=== PATIENT | male | born 1955 | race Caucasian/White ===

== ENCOUNTER → 2016-06-06 | Outpatient (CLI) | payer MEDICARE, OTHER ==
--- NOTE | 2016-06-06 10:39 | DI ---
Indication: ITS.REASON: M25.512 PAIN IN LEFT SHOULDER PROCEDURE: SHOULDER LEFT 3 VIEWS: Encounter: Initial Comparison: None Findings: There is no acute fracture, dislocation or malalignment identified. Surgical suture in the left apex. No significant degenerative changes. Impression: No acute osseous abnormality. .
== END ==
LOC: IMA 10:02
PROVIDERS: ATTEND Family Medicine
DX: M25.512 Pain in left shoulder (principal); Z91.81 History of falling

== ENCOUNTER 2017-06-02 10:37 | Inpatient (IN) ==
[2017-06-02] MEDS: LIDOCAINE 1% INJ 10 MG, POTASSIUM CHLORIDE INJ 10 MEQ in NS 100 ML IV SCH ×4 (13:31→19:03)
--- NOTE | 2017-06-02 14:04 | XRay Report ---
Indication: Leukocytosis PROCEDURE: XR chest 1V: Encounter: Initial Comparison: None Findings: Airspace opacity in both lower lobes, greater on the right. No pneumothorax or significant pleural effusion. Heart size and mediastinal contours are within normal limits. Postoperative changes seen in the upper central mediastinum. Contrast material noted in the colon from the patient's recent swallowing study. Surgical clips in the upper quadrant abdomen. Impression: Basilar airspace disease could be due to pneumonia or aspiration. .
[2017-06-02] MEDS ORDERED: SENNOSIDES 8.6 MG TABLET PO PRN (14:25)
[2017-06-02] MEDS ORDERED: ONDANSETRON 4 MG/2 ML INJECTION IVP PRN (14:25)
[2017-06-02] MEDS ORDERED: ALBUTEROL/IPRATROPIUM 2.5mg-0.5mg/3ml NEB AEROSOL PRN ×2 (14:33→18:07)
[2017-06-02] MEDS ORDERED: ALBUTEROL/IPRATROPIUM 2.5mg-0.5mg/3ml NEB AEROSOL SCH (15:00)
--- NOTE | 2017-06-02 16:12 | History & Physical Report ---
History of Present Illness Date: 06/02/17 Chief complaint: altered mental status HPI: Chris Kiran is a 61-year-old patient of Dr. Garland who has a complex medical history including a history of esophageal cancer. He underwent an esophagectomy in [address] Webster in [place]. Since that time, he has been following closely with Dr. Webster, even since his move to [place]. Since his esophagectomy, Chris developed a large hiatal hernia and it was determined that he needed to have repaired as a significant amount of his intestine and stomach had migrated into his thoracic cavity. He underwent the surgery on 04/26/17 in [place]. Prior to his surgery, his reports that he was very active and functionally independents. He remained hospitalized in [place] for a week following his surgery and discharge home to [place] around 05/03. Since that time, his reports that he has progressively become more debilitated with increased confusion, slurred speech, increased disorientation and increased lethargy. She also reports that he has been refusing to eat, stating that nothing tastes right and expresses significant fear about aspirating as he has had frequent bouts with aspiration pneumonia. She also reports that she has been sleeping significantly more over the past few weeks which she attributes to him refusing to wear his CPAP at night because he "can' t breath" with it on. He follows with Dr. Pablo for his COPD and sleep apnea and recently attempted to undergo a sleep study which he could not complete. He has also been following with Dr. Francis, cardiology, and was most recently seen yesterday, 06/01/17 and told his heart was doing great. Recently he was seen by Dr. Mendoza, urology, due to an elevated PSA. Repeat PSA was improved and no prostate biopsy was performed. On 05/29/17, he underwent a modified barium swallow due to inability to eat and significant weight loss since his surgery ( 162lb prior to surgery, 134 lb on admission). The study revealed trace aspiration with thin consistency barium. He was seen by speech therapy as an outpatient on 05/31/17 and found to be significantly malnourished and dehydrated with significant oropharyngeal dysphagia and at increased risk for aspiration given his lethargy on the exam. Speech recommended that he remain NPO due to his decreased level of consciousness with hopeful advancement to pureed consistency with nectar thickened liquids as a goal in the future. He was encouraged to follow up with his PCP, Dr. Steel, whom he saw this morning, . Due to his decreased level of consciousness and dehydration, Dr. Juárez was consulted and he was initially admitted into observation status. Upon arrival, labs were obtained and revealed leukocytosis (WBC 13.7), anemia (12.1) , hypokalemia (K 2.7), elevated alkaline phosphatase (384), severe protein calorie malnutrition (prealbumin 5.3) and lithium toxicity (lithium 3.1). Chest x-ray revealed basilar airspace disease. Given his pneumonia with leukocytosis and high risk due to his severe protein calorie malnutrition as well as his lithium toxicity, altered mental status and severe hypokalemia, he was changed to inpatient status for close respiratory, cardiovascular and neurologic monitoring, IV hydration, IV potassium supplementation and further evaluation and treatment. His length of stay is expected to be greater than 2 days. Due to his somnolence on exam, the majority of his history was obtained from his , nursing and prior medical records. Review of Systems ROS unobtainable: due to mental status - Constitutional Constitutional: Present: anorexia, daytime sleepiness, fatigue, lethargy, weakness. Absent: chills, fever(s) - EENMT Eyes: Absent: photophobia Nose: Absent: nosebleeds Mouth/Throat: Present: changes in swallowing, dry mouth - Cardiovascular Cardiovascular: Absent: chest pain, syncope Vascular: Absent: pallor of an extermity, pedal edema - Respiratory Respiratory: Absent: cough, dyspnea, wheezing - Gastrointestinal Gastrointestinal: Present: dysphagia. Absent: diarrhea, vomiting - Genitourinary Genitourinary: Absent: hematuria - Musculoskeletal Musculoskeletal: Present: abnormal gait (instability), muscle weakness. Absent : deformity - Integumentary/Breasts Integumentary: Absent: rash - Neurological Neurological: Present: abnormal gait, confusion, restless legs, weakness. Absent: convulsions, dizziness - Psychiatric Psychiatric: Present: abnormal sleep pattern, behavioral changes, depression Psychiatric Comments: increased behaviors per family. - Endocrine Endocrine: Absent: palpitations - Hematologic/Lymphatic Hematologic/Lymphatic: Absent: easy bruising - Allergic/Immunologic Allergic/Immunologic: Absent: seasonal rhinorrhea Past Medical History Medical History Updates: CAD. Hypertension. Hyperlipidemia. Dibetes mellitus , type II. Diabetic neuropathy. COPD. Sleep apnea with home CPAP. Vascular dementia. GERD. Dysphagia. Chronic pain. Chronic anemia. Severe depression with prior ECT treatments - 2002. History of alcohol abuse. History of esophageal cancer and Philippe's esophagus. Questionable history of CVA - 2003. Prior suicidial attempt - 2002. Surgical History: Major hiatal hernia repair - removing abdomonal structures from thoracic cavity - 04/26/2017 (Dr. Webster - [place]). Esophagectomy - 1991 (Dr. Webster - [place]). Appendectomy. Family History: Unable to Obtain - Social History Smoking status: Former smoker (quit 1991) Substance use type: former substance user (marijuana and cociane) Alcohol intake frequency: former alcohol drinker (quit 2002) Housing: house Household members: spouse Current occupational status: retired Current residence: Apartment/Private Home Social history: PCP - Dr. Steel. Surg - Dr. Webster ([place]). Uro - Dr. Dalal. Cardio - Dr. Francis. Pulm - Dr. Pablo. Medications Home Medications Medication Instructions Recorded Confirmed Type Albuterol Sulfate [Proair Hfa] 2 puff INH Q4H PRN 06/02/17 06/02/17 History Aspirin [Adult Aspirin Regimen] 81 mg PO DAILY 06/02/17 06/02/17 History Fluticasone/Salmeterol 250/50 1 puff INH BID 06/02/17 06/02/17 History [Advair 250-50 Diskus] Gabapentin [Neurontin] 1,200 mg PO HS 06/02/17 06/02/17 History Gabapentin [Neurontin] 200 mg PO BID 06/02/17 06/02/17 History Isosorbide Mononitrate ER [Imdur] 30 mg PO DAILY 06/02/17 06/02/17 History Lactobacillus [Culturelle] 1 cap PO DAILY 06/02/17 06/02/17 History Latanoprost [Latanoprost] 1 drop EACH EYE HS 06/02/17 06/02/17 History [place] Carbonate [[place] 900 mg PO HS 06/02/17 06/02/17 History Carbonate] Modafinil [Provigil] 200 mg PO DAILY 06/02/17 06/02/17 History Multivitamin [One Daily] 1 each PO DAILY 06/02/17 06/02/17 History Nitroglycerin 0.4 mg SL Q5M PRN 06/02/17 06/02/17 History Pantoprazole Tab [Protonix Tab] 1 tab PO ACB 06/02/17 06/02/17 History Pramipexole Di-HCl [Mirapex] 0.5 mg PO HS 06/02/17 06/02/17 History Ranitidine [Zantac] 150 mg PO DAILY 06/02/17 06/02/17 History Rosuvastatin Calcium [Crestor] 40 mg PO HS 06/02/17 06/02/17 History Tamsulosin [Flomax] 0.4 mg PO DAILY 06/02/17 06/02/17 History Tramadol/APAP 37.5/325 [Ultracet] 1 tab PO Q8H PRN 06/02/17 06/02/17 History Venlafaxine XR [Effexor Xr] 450 mg PO DAILY 06/02/17 06/02/17 History Allergies Allergy/AdvReac Type Severity Reaction Status Date / Time No Known Allergies Allergy Verified 06/02/17 12:13 Exam Vital Signs: Temperature 95.5 F L 06/02/17 11:05 Pulse Rate 66 06/02/17 14:50 Respiratory Rate 16 06/02/17 14:50 Blood Pressure 107/64 06/02/17 14:50 Pulse Oximetry 96 06/02/17 14:50 Telemetry Rhythm: Sinus Rhythm Height/Weight/BMI: Height 5 ft 4 in Weight 134 lb 0.657 oz Body Mass Index 23.0 Comments: Patient is sleeping and awakens briefly with loud voice and stimuli but quickly falls back to sleep. Limited exam due to patient's somnolence and altered mental status in addition to known dementia. - Constitutional Present: no acute distress, thin, somnolent. Absent: well nourished - Routine HEENT Exam Head: Present: normocephalic, atraumatic Eye: Present: PERRL. Absent: conjunctival icterus ENT: Present: mucous membranes dry - Routine Neck Exam Present: supple, trachea midline - Routine Chest/Breast/Axilla Exam Chest wall: Absent: tenderness, pacemaker - Routine Respiratory Exam Absent: accessory muscle use, dyspnea Comments: diminished breath sounds bilaterally. - Routine Cardiovascular Exam Present: RRR - Routine Abdominal Exam Present: soft, normoactive bowel sounds, non distended, non tender - Routine Extremities Exam Present: no edema, pulses intact - Routine Back/Spine/Pelvis Exam Comments: limited exam due to patient's somnolence. - Routine Skin Exam Present: dry, warm. Absent: jaundice Comments: afebrile. - Routine Neurological Exam Present: altered mental status, hearing grossly intact - Routine Psychiatric Exam Present: cooperative Results - Labs CBC & Chem 7: 06/02/17 11:40 06/02/17 11:40 - Imaging and Cardiology Chest x-ray Status: image reviewed by me Additional comments: Date of Exam: 06/02/17 Type of Exam(s): XR chest 1V Reason for Exam(s): Leukocytosis Findings: Airspace opacity in both lower lobes, greater on the right. No pneumothorax or significant pleural effusion. Heart size and mediastinal contours are within normal limits. Postoperative changes seen in the upper central mediastinum. Contrast material noted in the colon from the patient's recent swallowing study. Surgical clips in the upper quadrant abdomen. Impression: Basilar airspace disease could be due to pneumonia or aspiration. Assessment and Plan (1) Pneumonia Current visit: Yes Status: Acute (2) Hypokalemia Current visit: Yes Status: Acute (3) Leukocytosis Current visit: Yes Status: Acute (4) Severe protein-calorie malnutrition Current visit: Yes Status: Acute (5) [place] toxicity Current visit: Yes Status: Acute Assessment and Plan: Acute Medical Conditions Altered mental status, acute. Pneumonia, present on admission. Severe hypokalemia, present on admission. Leukocytosis, present on admission. Rapid weight loss with anorexia. Severe protein calorie malnutrition. [place] toxicity, present on admission. Dementia (vascular) with behavioral disturbance and increased agitation/ restlessness. Major depressive disorder. Dysphagia with declining oral intake ability. Chronic Medical Conditions CAD. Hypertension. Hyperlipidemia. Diabetes mellitus, type II. Diabetic neuropathy. COPD. Sleep apnea with home CPAP. GERD. Dysphagia. Chronic pain. Chronic anemia. Severe depression with prior ECT treatments - 2002. History of alcohol abuse. History of esophageal cancer and Philippe's esophagus. Questionable history of CVA - 2003. Prior suicidal attempt - 2002. Plan Admit to inpatient status under the care of Dr. Juárez. Labs obtained on admission - WBC 13.7, Hgb 12.1, K 2.7. CXR revealed pneumonia - blood cultures obtained and pending; lactate 1.3. Monitor closely for signs of sepsis. Rocephin 1g IV daily and Azithromycin 500mg IV daily initiated 06/02/17 for treatment of pneumonia. Potassium boluses x 4 given - monitor electrolytes closely. Monitor cardiac function closely on telemetry. Oxygen as needed to maintain SAO2 >90%. Currently on room air. Does not use oxygen at home. DuoNeb treatments and acapella. Will obtain ABG now given increased lethargy. believes behaviors are secondary to not using his CPAP at night. Speech recommending NPO status given decreased level of consciousness and risk for aspiration. Will hold oral home medications at this time. Significant history of depression. Consider psychiatric consult once mental status improved. Ativan as needed for increased behaviors and air hunger. If mental status does not improve, consider obtaining CT head and/or MRI brain for further evaluation. Will hold lithium given toxicity. Monitor levels. Given anemia and behavior changes, will check B12 level. Will try and obtain UA sample for evaluation. Upon discharge, patient's care will be returned to his PCP, Dr. Steel. DVT Prophylaxis: SCD's GI Prophylaxis: Protonix Resuscitation Status: Full Code - Time spent with patient Time with patient PN: 70 minutes - Physician Narrative Physician: Madan Juárez MD Narrative: Date: 06/02/17 Time: 1744 Have independently interviewed and examined pt. Chart reviewed. Case discussed with Dr Steel, Dr Dior, pt's , and my PA. Care plan developed with my supervision; agree with above. Patient admitted for evaluation of impaired swallow ability. Has had esophageal CA with esophagectomy. Recent underwent surgery in [place] for correction. Did well during hospitalization, but since home has been having progressive difficulty swallowing. In the past 3 weeks he has progressively become weak. Significant weight loss in last month. Now to the point he is unable to move around well at home. Lungs: decreased CV: regular AB: soft flat BS decreased MSE: very somnolent Plan: Initially placed in OBS, but with findings of significant Mental status decline and pneumonia with leukocytosis, will change to inpatient admission. Discussed case with Dr Dior-esophagram and EGD may shed some light on why he cannot eat (?stricture), but patient to acutely ill to attempt these procedure. Speech recommends NPO due to his decreased LOC. Will initiate antimicrobial coverage for pneumonia and hydrate pt-hope to see cognitive gains with these modalities. Likely need TPN/PPN if not seeing increased oral drive in near future. Monitor lab. Full code per his prior request. Hospital Course Summary Disclaimer: The visit summary below is not to be considered part of the above Progress Note. Hospital Course: Plan - 06/02/17: Admit to inpatient status under the care of Dr. Juárez. Labs obtained on admission - WBC 13.7, Hgb 12.1, K 2.7. CXR revealed pneumonia - blood cultures obtained and pending; lactate 1.3. Monitor closely for signs of sepsis. Rocephin 1g IV daily and Azithromycin 500mg IV daily initiated 06/02/17 for treatment of pneumonia. Potassium boluses x 4 given - monitor electrolytes closely. Monitor cardiac function closely on telemetry. Oxygen as needed to maintain SAO2 >90%. Currently on room air. Does not use oxygen at home. DuoNeb treatments and acapella. Will obtain ABG now given increased lethargy. believes behaviors are secondary to not using his CPAP at night. Speech recommending NPO status given decreased level of consciousness and risk for aspiration. Will hold oral home medications at this time. Significant history of depression. Consider psychiatric consult once mental status improved. Ativan as needed for increased behaviors and air hunger. If mental status does not improve, consider obtaining CT head and/or MRI brain for further evaluation. Will hold lithium given toxicity. Monitor levels. Given anemia and behavior changes, will check B12 level. Will try and obtain UA sample for evaluation. Upon discharge, patient's care will be returned to his PCP, Dr. Steel.
[2017-06-02] MEDS: CEFTRIAXONE 1 G in NS 100 ML IV SCH (16:17)
[2017-06-02] MEDS ORDERED: ACETAMINOPHEN 650 MG SUPPOSITORY PR PRN (17:29)
[2017-06-02] MEDS: PANTOPRAZOLE 40 MG INJECTION IVP SCH (17:46)
[2017-06-02] MEDS: NS 1,000 ML IV SCH (18:32)
[2017-06-02] MEDS ORDERED: BUDESONIDE INH.SOLN 0.5mg/2ml NEB IPPB SCH (19:00)
[2017-06-02] MEDS: ALBUTEROL/IPRATROPIUM 2.5mg-0.5mg/3ml NEB AEROSOL SCH (19:40)
[2017-06-02] MEDS: BUDESONIDE INH.SOLN 0.5mg/2ml NEB AEROSOL SCH (19:40)
[2017-06-02] MEDS: SALINE FLUSH 10ml SYRINGE IV PRN (20:25)
[2017-06-02] MEDS: AZITHROMYCIN IV 500 MG in NS 250ml 250 ML IV SCH (20:25)
--- NOTE | 2017-06-02 20:31 | Consultation ---
DATE OF CONSULTATION 06/02/2017 HISTORY OF PRESENT ILLNESS This patient is 61 years old. This patient underwent an esophagogastrectomy operation in [address] Webster in [place] for treatment of esophageal carcinoma. The patient has continued to followup with Dr. Webster since that time even after Dr. Webster transferred his practice from [place], [place] to [place], [place]. The patient moved from [place] to [place], [place] about four years ago. The patient did have a large amount of his abdominal viscera migrate from the abdominal cavity up into the chest cavity through a large hiatal hernia. The patient did undergo an operation on [address] Webster at [place], [place]. The patient underwent laparotomy with reduction of abdominal viscera out of the thorax back into the abdominal cavity with repair of a large hiatal hernia with mesh on 04/26/[address] Webster at [facility] at [place], [place]. The patient was active and functionally independent before this operation. The patient did remain hospitalized at [place], [place] for about a week after the operation. The patient was eating and keeping food down during the first week after the operation. The patient then came back to the [place], [place] area. The condition of the patient has progressively deteriorated since he came back to [place], [place] from [place], [place]. The patient has become more and more debilitated. The patient has been slowly losing weight since then. The patient did weigh 162 pounds before his operation on 04/26/2017. Weight is now down to 134 pounds. The patient refuses to eat any more after taking one or two bites of food. He has a poor appetite. He does not eat much. He will not use his dentures. The patient has some vomiting. The reports that the patient has been losing weight. He has slurred speech. He is disoriented. He is confused. He is so weak at this point that he cannot stand up. He has refused to take a bath. The patient has had increased confusion, slurred speech , increased disorientation and increased lethargy. The patient has also been somnolent during the daytime. The wonders if this is because the patient refuses to wear his CPAP at night. He does have sleep apnea and does have CPAP prescribed for treatment of sleep apnea but does not use this. The patient did attempt to undergo another sleep study recently under the direction of Dr. Pablo but the patient was not able to complete the sleep study. The patient did undergo a modified barium swallow study at [facility] due to inability to eat and significant weight loss. This modified barium swallow study showed trace aspiration with thin consistency barium. He was seen by Speech Therapy as an outpatient on 05/31/2017. The patient was found to be significantly malnourished and dehydrated with severe oropharyngeal dysphagia. The patient was thought to be at increased risk of aspiration because of his lethargy. Speech Therapy recommended that the patient remain n.p.o. due to his decreased level of consciousness. It was hoped that the patient could be advanced to a diet with pureed consistency with nectar thickened liquids as a goal for the future. The patient was encouraged to followup with his primary care physician. The patient did see his primary care physician on the morning of 06/02/2017. Due to the decreased level of consciousness of the patient and his dehydration, the primary care physician recommended the patient be admitted to [facility] on 06/02/2017. This history is obtained from the of the patient and also from review of [facility] records. The patient could not be aroused enough from his somnolence at this time to provide any type of history at all at the present time. PHYSICAL EXAMINATION VITAL SIGNS: Temperature is 95.5 degrees Fahrenheit oral. Pulse is 66. Respiratory rate is 16. Blood pressure is 107/64. Oxygen saturation is 96% on room air. Height is 1.63 meters. Weight is 60.8 kg. BMI is 23 kg/m2. ABDOMEN: The patient does have a recent midline vertically oriented upper abdominal incision scar. The abdomen is soft and nontender and nondistended at this time. NEUROLOGIC: The patient is unresponsive to verbal stimuli at this time. He is quite somnolent and unable to answer any questions. LABORATORY DATA White blood cell count is 13,700 with no bands. The patient does have 84.2% neutrophils. Hemoglobin is 12.1. Hematocrit is 36.8. Serum sodium is 137. Serum potassium is 2.7. Serum chloride is 95. Carbon dioxide is 31. Serum creatinine is 1.1. Alkaline phosphatase is 384. Prealbumin is 5.3. [place] level is 3.1. IMAGING DATA Chest x-ray performed on 06/03/2015 at [facility] shows bibasilar airspace disease which could represent pneumonia or aspiration. The patient has air space opacity in both lower lobes, greater on the right. IMPRESSION 1. Status post esophagogastrectomy in 1991 for treatment of esophageal carcinoma. 2. Status post laparotomy with reduction of abdominal viscera out of thorax and repair of large hiatal hernia with mesh on 04/26/2017. 3. Oropharyngeal dysphagia. 4. Severe protein calorie malnutrition. 5. Weight loss. 6. Anorexia. 7. Weakness. 8. Altered mental status. 9. [place] toxicity. 10. Severe hypokalemia. 11. Pneumonia. 12. Leukocytosis due to pneumonia. 13. Anemia. 14. Sleep apnea. 15. Chronic obstructive pulmonary disease. 16. Coronary artery disease. 17. Hypertension. 18. Hyperlipidemia. 19. Type 2 diabetes mellitus. 20. Gastroesophageal reflux disease. 21. Major depressive disorder. RECOMMENDATIONS 1. I agree with Rocephin and azithromycin for treatment of pneumonia. 2. IV hydration of patient. 3. Correct hypokalemia. 4. Hold lithium. 5. TPN for nutritional support. 6. CT head scan or MRI of the brain if the mental status does not improve. 7. Esophagram and upper GI x-ray series if mental status improves enough for the patient to cooperate with these imaging studies. 8. Sequential compression devices for deep venous thrombosis prophylaxis. 9. Intravenous Protonix for GI prophylaxis. MTDD
[2017-06-03] MEDS: ALBUTEROL/IPRATROPIUM 2.5mg-0.5mg/3ml NEB AEROSOL SCH ×4 (07:22→19:34)
[2017-06-03] MEDS: BUDESONIDE INH.SOLN 0.5mg/2ml NEB AEROSOL SCH ×2 (07:23→19:34)
[2017-06-03] MEDS: NS 1,000 ML IV SCH (07:47)
[2017-06-03] MEDS: PANTOPRAZOLE 40 MG INJECTION IVP SCH (08:19)
[2017-06-03] MEDS: POLYETHYL GLYCOL 3350 17gm PACKET PO SCH (08:19)
[2017-06-03] MEDS: CEFTRIAXONE 1 G in NS 100 ML IV SCH (14:02)
--- NOTE | 2017-06-03 14:42 | Progress Note ---
- Date 06/03/17 Subjective: Resting comfortably. Speech difficult to understand at times. Struggles to answer questions. present a little later. Patient up to chair c/o pins and needles in his legs. NG d/w them for nutrition and to give meds. Patient agrees to this. Objective Vital signs: Temperature 97.6 F 06/03/17 11:46 Pulse Rate 78 06/03/17 11:46 Respiratory Rate 18 06/03/17 11:46 Blood Pressure 150/67 H 06/03/17 11:46 Pulse Oximetry 95 06/03/17 11:46 Height/Weight/BMI: Height 5 ft 4 in Weight 61.2 kg Body Mass Index 23.0 - Constitutional Present: no acute distress, mild distress - Routine HEENT Exam Head: Present: normocephalic Eye: Present: EOMI, PERRL - Routine Respiratory Exam Present: CTA bilaterally - Routine Cardiovascular Exam Present: RRR, S1, S2 - Routine Abdominal Exam Present: soft, normoactive bowel sounds, non distended, non tender - Routine Extremities Exam Present: no edema - Routine Neurological Exam Present: alert Results - Labs CBC & Chem 7: 06/03/17 04:55 06/03/17 04:55 Microbiology Results: Microbiology 06/02/17 18:23 Urine, Voided (Cc/notcc) Urine Culture - Preliminary Early growth 06/02/17 15:38 Peripheral/Iv Start Blood Culture - Preliminary Culture Initiated - Results Pending 06/02/17 15:34 Peripheral/Iv Start Blood Culture - Preliminary Culture Initiated - Results Pending - ABG Interpretation ABG results: 06/02/17 17:07 ABG pH 7.432 ABG pCO2 44 ABG pO2 58.2 L ABG HCO3 29.3 H ABG Total CO2 30.7 H ABG O2 Saturation 90.4 L ABG Base Excess 4.4 H Assessment and Plan (1) Pneumonia Current visit: Yes Status: Acute (2) Hypokalemia Current visit: Yes Status: Acute (3) Leukocytosis Current visit: Yes Status: Acute (4) Severe protein-calorie malnutrition Current visit: Yes Status: Acute (5) [place] toxicity Current visit: Yes Status: Acute Assessment and Plan: Acute Medical Conditions Altered mental status, acute. Pneumonia, present on admission. Severe hypokalemia, present on admission. Leukocytosis, present on admission. Rapid weight loss with anorexia. Severe protein calorie malnutrition. [place] toxicity, present on admission. Dementia (vascular) with behavioral disturbance and increased agitation/ restlessness. Major depressive disorder. Dysphagia with declining oral intake ability. UTI Chronic Medical Conditions CAD. Hypertension. Hyperlipidemia. Diabetes mellitus, type II. Diabetic neuropathy. COPD. Sleep apnea with home CPAP. GERD. Dysphagia. Chronic pain. Chronic anemia. Severe depression with prior ECT treatments - 2002. History of alcohol abuse. History of esophageal cancer and Philippe's esophagus. Questionable history of CVA - 2003. Prior suicidal attempt - 2002. Plan Continue Rocephin 1g IV daily and Azithromycin 500mg IV daily for treatment of pneumonia. Repeat potassium boluses x 4. Monitor cardiac function closely on telemetry. Oxygen as needed to maintain SAO2 >90%. Currently on room air. Does not use oxygen at home. DuoNeb treatments and acapella. Use CPAP. Speech continues to recommend NPO status. NGT to be placed. Start tube feedings. Consult support manager. Accuchecks q6. Significant history of depression. Consider psychiatric consult once mental status improved. Ativan as needed for increased behaviors and air hunger. Will hold lithium given toxicity. Monitor levels and continue IVF. Given anemia and behavior changes, will check B12 level. Antibiotics expected to cover UTI. - Physician Narrative Narrative: Date: 06/03/17 Time: 1436 Hospital Course Summary Disclaimer: The visit summary below is not to be considered part of the above Progress Note. Hospital Course: Plan - 06/02/17: Admit to inpatient status under the care of Dr. Juárez. Labs obtained on admission - WBC 13.7, Hgb 12.1, K 2.7. CXR revealed pneumonia - blood cultures obtained and pending; lactate 1.3. Monitor closely for signs of sepsis. Rocephin 1g IV daily and Azithromycin 500mg IV daily initiated 06/02/17 for treatment of pneumonia. Potassium boluses x 4 given - monitor electrolytes closely. Monitor cardiac function closely on telemetry. Oxygen as needed to maintain SAO2 >90%. Currently on room air. Does not use oxygen at home. DuoNeb treatments and acapella. Will obtain ABG now given increased lethargy. believes behaviors are secondary to not using his CPAP at night. Speech recommending NPO status given decreased level of consciousness and risk for aspiration. Will hold oral home medications at this time. Significant history of depression. Consider psychiatric consult once mental status improved. Ativan as needed for increased behaviors and air hunger. If mental status does not improve, consider obtaining CT head and/or MRI brain for further evaluation. Will hold lithium given toxicity. Monitor levels. Given anemia and behavior changes, will check B12 level. Will try and obtain UA sample for evaluation. Upon discharge, patient's care will be returned to his PCP, Dr. Steel. 06/03 Continue Rocephin 1g IV daily and Azithromycin 500mg IV daily for treatment of pneumonia. Repeat potassium boluses x 4. Monitor cardiac function closely on telemetry. Oxygen as needed to maintain SAO2 >90%. Currently on room air. Does not use oxygen at home. DuoNeb treatments and acapella. Use CPAP. Speech continues to recommend NPO status. NGT to be placed. Start tube feedings. Consult support manager. Accuchecks q6. Significant history of depression. Consider psychiatric consult once mental status improved. Ativan as needed for increased behaviors and air hunger. Will hold lithium given toxicity. Monitor levels and continue IVF. Given anemia and behavior changes, will check B12 level. Antibiotics expected to cover UTI.
[2017-06-03] MEDS ORDERED: TRAMADOL/APAP 37.5 MG/325 MG TABLET PO PRN (14:54)
[2017-06-03] MEDS ORDERED: NITROGLYCERIN 0.4 MG SUBLINGUAL TABLET SL PRN (14:54)
[2017-06-03] MEDS: AZITHROMYCIN IV 500 MG in NS 250ml 250 ML IV SCH (15:49)
[2017-06-03] MEDS: GABAPENTIN 100 MG CAPSULE PO SCH (17:07)
[2017-06-03] MEDS: TAMSULOSIN 0.4 MG CAPSULE PO SCH (17:08)
[2017-06-03] MEDS: ASPIRIN *EC* 81 MG TABLET PO SCH (17:10)
[2017-06-03] MEDS: MODAFINIL 100 MG TABLET PO SCH (17:10)
[2017-06-03] MEDS: ISOSORBIDE MONONITRATE ER 30 MG TABLET PO SCH (17:13)
[2017-06-03] MEDS: ENOXAPARIN 40 MG/0.4 ML INJECTION SQ SCH (17:13)
[2017-06-03] MEDS: NS IV SCH ×4 (17:25→23:10)
[2017-06-03] MEDS: POTASSIUM CHLORIDE IV SCH ×4 (17:25→23:10)
[2017-06-03] MEDS: LIDOCAINE IV SCH ×4 (17:25→23:10)
[2017-06-03] MEDS: TRAMADOL/APAP 37.5 MG/325 MG TABLET NG PRN (20:15)
[2017-06-03] MEDS ORDERED: ROSUVASTATIN 20 MG TABLET PO SCH (21:00)
[2017-06-03] MEDS ORDERED: GABAPENTIN 600 MG TABLET PO SCH (21:00)
[2017-06-03] MEDS ORDERED: PRAMIPEXOLE 0.5 MG TABLET PO SCH (21:00)
[2017-06-03] MEDS: GABAPENTIN 600 MG TABLET NG SCH (22:43)
[2017-06-03] MEDS: ROSUVASTATIN 20 MG TABLET NG SCH (22:44)
[2017-06-03] MEDS: PRAMIPEXOLE 0.5 MG TABLET NG SCH (22:45)
[2017-06-04] MEDS: NS 1,000 ML IV SCH ×3 (01:22→11:44)
[2017-06-04] MEDS: ISOSORBIDE DINITRATE 10 MG TABLET PO SCH (06:27)
[2017-06-04] MEDS: ALBUTEROL/IPRATROPIUM 2.5mg-0.5mg/3ml NEB AEROSOL SCH ×4 (07:07→20:41)
[2017-06-04] MEDS: BUDESONIDE INH.SOLN 0.5mg/2ml NEB AEROSOL SCH ×2 (07:07→20:41)
[2017-06-04] MEDS: GABAPENTIN 100 MG CAPSULE PO SCH ×2 (08:59→17:07)
[2017-06-04] MEDS: ASPIRIN *EC* 81 MG TABLET PO SCH (08:59)
[2017-06-04] MEDS: ENOXAPARIN 40 MG/0.4 ML INJECTION SQ SCH (08:59)
[2017-06-04] MEDS: PANTOPRAZOLE 40 MG INJECTION IVP SCH (09:00)
[2017-06-04] MEDS: MODAFINIL 100 MG TABLET PO SCH (09:00)
[2017-06-04] MEDS: POLYETHYL GLYCOL 3350 17gm PACKET PO SCH (09:01)
[2017-06-04] MEDS: TAMSULOSIN 0.4 MG CAPSULE PO SCH (09:01)
--- NOTE | 2017-06-04 09:27 | XRay Report ---
Indication: NG tube placement PROCEDURE: XR chest 1V: Encounter: Initial Comparison: June 02, 2017 Findings: Nasogastric tube in place with the tip projecting over the distal pyloric region or possibly first portion of the duodenum. Contrast material again seen in the colon. Nonobstructive nonspecific bowel gas pattern. Hazy opacities in both lung bases could represent scarring, atelectasis or infiltrate. No pneumothorax or definite effusion. Heart size and mediastinal contours are within normal limits. Impression: Findings as above. There is a preliminary report by virtual radi[facility]. .
[2017-06-04] MEDS ORDERED: FALL RISK - PHARMACY CONSULT MC ONE (11:05)
--- NOTE | 2017-06-04 11:39 | Progress Note ---
- Date 06/04/17 Subjective: Patient having NGT replaced because unable to pass water through it. Patient says neuropathy improved after getting gabapentin. Patient struggles to answer questions. Objective Vital signs: Temperature 97.8 F 06/04/17 08:00 Pulse Rate 78 06/04/17 08:00 Respiratory Rate 18 06/04/17 10:46 Blood Pressure 107/64 06/04/17 08:00 Pulse Oximetry 95 06/04/17 10:46 Height/Weight/BMI: Height 5 ft 4 in Weight 62.8 kg Body Mass Index 23.0 - Constitutional Present: moderate distress Comments: while NGT being placed - Routine HEENT Exam Head: Present: normocephalic, atraumatic Eye: Present: EOMI, PERRL - Routine Respiratory Exam Present: CTA bilaterally - Routine Cardiovascular Exam Present: RRR, S1, S2 - Routine Abdominal Exam Present: soft, non distended, non tender - Routine Extremities Exam Present: no edema - Routine Neurological Exam Present: alert, moving all extremities Results - Labs CBC & Chem 7: 06/04/17 04:33 06/04/17 04:33 Microbiology Results: Microbiology 06/02/17 18:23 Urine, Voided (Cc/notcc) Urine Culture - Preliminary Enterococcus species 06/02/17 15:38 Peripheral/Iv Start Blood Culture - Preliminary No Growth After 1 Day 06/02/17 15:34 Peripheral/Iv Start Blood Culture - Preliminary No Growth After 1 Day - ABG Interpretation ABG results: 06/02/17 17:07 ABG pH 7.432 ABG pCO2 44 ABG pO2 58.2 L ABG HCO3 29.3 H ABG Total CO2 30.7 H ABG O2 Saturation 90.4 L ABG Base Excess 4.4 H Assessment and Plan (1) Pneumonia Current visit: Yes Status: Acute (2) Hypokalemia Current visit: Yes Status: Acute (3) Leukocytosis Current visit: Yes Status: Acute (4) Severe protein-calorie malnutrition Current visit: Yes Status: Acute (5) [place] toxicity Current visit: Yes Status: Acute Assessment and Plan: Acute Medical Conditions Altered mental status, acute. Pneumonia, present on admission. Severe hypokalemia, present on admission. Leukocytosis, present on admission. Rapid weight loss with anorexia. Severe protein calorie malnutrition. [place] toxicity, present on admission. Dementia (vascular) with behavioral disturbance and increased agitation/ restlessness. Major depressive disorder. Dysphagia with declining oral intake ability. UTI Chronic Medical Conditions CAD. Hypertension. Hyperlipidemia. Diabetes mellitus, type II. Diabetic neuropathy. COPD. Sleep apnea with home CPAP. GERD. Dysphagia. Chronic pain. Chronic anemia. Severe depression with prior ECT treatments - 2002. History of alcohol abuse. History of esophageal cancer and Philippe's esophagus. Questionable history of CVA - 2003. Prior suicidal attempt - 2002. Plan Continue Rocephin 1g IV daily and Azithromycin 500mg IV daily for treatment of pneumonia. Repeat potassium boluses x 4. Monitor cardiac function closely on telemetry. Oxygen as needed to maintain SAO2 >90%. Currently on room air. Does not use oxygen at home. DuoNeb treatments and acapella. Use CPAP. Speech continues to recommend NPO status. NGT placed and had to be replaced b/c it clogged. Start tube feedings. Consult auto dealership porter. Accuchecks q6. Significant history of depression. Consider psychiatric consult once mental status improved. Ativan as needed for increased behaviors and air hunger. Will hold lithium given toxicity. Monitor levels and continue IVF. Given anemia and behavior changes, checking B12 level. Enterococcus being ID'd in urine. Vanco x 1. Monitor. d/w Dr. Dior. He recommends enteral feedings and if patient's mental status continues to improve, he will consider further tests. x-ray shows retained barium. Add lactulose to bowel regimen - Physician Narrative Narrative: Date: 06/04/17 Time: 1135 Hospital Course Summary Disclaimer: The visit summary below is not to be considered part of the above Progress Note. Hospital Course: Plan - 06/02/17: Admit to inpatient status under the care of Dr. Juárez. Labs obtained on admission - WBC 13.7, Hgb 12.1, K 2.7. CXR revealed pneumonia - blood cultures obtained and pending; lactate 1.3. Monitor closely for signs of sepsis. Rocephin 1g IV daily and Azithromycin 500mg IV daily initiated 06/02/17 for treatment of pneumonia. Potassium boluses x 4 given - monitor electrolytes closely. Monitor cardiac function closely on telemetry. Oxygen as needed to maintain SAO2 >90%. Currently on room air. Does not use oxygen at home. DuoNeb treatments and acapella. Will obtain ABG now given increased lethargy. believes behaviors are secondary to not using his CPAP at night. Speech recommending NPO status given decreased level of consciousness and risk for aspiration. Will hold oral home medications at this time. Significant history of depression. Consider psychiatric consult once mental status improved. Ativan as needed for increased behaviors and air hunger. If mental status does not improve, consider obtaining CT head and/or MRI brain for further evaluation. Will hold lithium given toxicity. Monitor levels. Given anemia and behavior changes, will check B12 level. Will try and obtain UA sample for evaluation. Upon discharge, patient's care will be returned to his PCP, Dr. Steel. 06/03 Continue Rocephin 1g IV daily and Azithromycin 500mg IV daily for treatment of pneumonia. Repeat potassium boluses x 4. Monitor cardiac function closely on telemetry. Oxygen as needed to maintain SAO2 >90%. Currently on room air. Does not use oxygen at home. DuoNeb treatments and acapella. Use CPAP. Speech continues to recommend NPO status. NGT to be placed. Start tube feedings. Consult auto dealership porter. Accuchecks q6. Significant history of depression. Consider psychiatric consult once mental status improved. Ativan as needed for increased behaviors and air hunger. Will hold lithium given toxicity. Monitor levels and continue IVF. Given anemia and behavior changes, will check B12 level. Antibiotics expected to cover UTI. 06/04 Continue Rocephin 1g IV daily and Azithromycin 500mg IV daily for treatment of pneumonia. Repeat potassium boluses x 4. Monitor cardiac function closely on telemetry. Oxygen as needed to maintain SAO2 >90%. Currently on room air. Does not use oxygen at home. DuoNeb treatments and acapella. Use CPAP. Speech continues to recommend NPO status. NGT placed and had to be replaced b/c it clogged. Start tube feedings. Consult auto dealership porter. Accuchecks q6. Significant history of depression. Consider psychiatric consult once mental status improved. Ativan as needed for increased behaviors and air hunger. Will hold lithium given toxicity. Monitor levels and continue IVF. Given anemia and behavior changes, checking B12 level. Enterococcus being ID'd in urine. Vanco x 1. Monitor. d/w Dr. Dior. He recommends enteral feedings and if patient's mental status continues to improve, he will consider further tests. x-ray shows retained barium. Add lactulose to bowel regimen
[2017-06-04] MEDS: CEFTRIAXONE 1 G in NS 100 ML IV SCH (14:16)
[2017-06-04] MEDS: AZITHROMYCIN IV 500 MG in NS 250ml 250 ML IV SCH (15:14)
[2017-06-04] MEDS: NS IV SCH ×4 (17:07→21:59)
[2017-06-04] MEDS: LIDOCAINE IV SCH ×4 (17:07→21:59)
[2017-06-04] MEDS: POTASSIUM CHLORIDE IV SCH ×4 (17:07→21:59)
[2017-06-04] MEDS ORDERED: LACTULOSE 20 GM/30 ML ORAL LIQUID PO SCH (21:00)
[2017-06-04] MEDS: LACTULOSE 20 GM/30 ML ORAL LIQUID PO SCH (21:59)
[2017-06-04] MEDS: PRAMIPEXOLE 0.5 MG TABLET NG SCH (22:00)
[2017-06-04] MEDS: ROSUVASTATIN 20 MG TABLET NG SCH (22:00)
[2017-06-04] MEDS: GABAPENTIN 600 MG TABLET NG SCH (22:00)
[2017-06-04] MEDS: TRAMADOL/APAP 37.5 MG/325 MG TABLET NG PRN (22:03)
[2017-06-05] MEDS: NS 1,000 ML IV SCH ×2 (00:49→05:46)
[2017-06-05] MEDS: ISOSORBIDE DINITRATE 10 MG TABLET PO SCH (05:52)
[2017-06-05] MEDS: ALBUTEROL/IPRATROPIUM 2.5mg-0.5mg/3ml NEB AEROSOL SCH ×4 (08:15→19:48)
[2017-06-05] MEDS: BUDESONIDE INH.SOLN 0.5mg/2ml NEB AEROSOL SCH ×2 (08:15→19:48)
[2017-06-05] MEDS: LACTULOSE 20 GM/30 ML ORAL LIQUID PO SCH ×2 (09:11→21:21)
[2017-06-05] MEDS: MODAFINIL 100 MG TABLET PO SCH (09:11)
[2017-06-05] MEDS: PANTOPRAZOLE 40 MG INJECTION IVP SCH (09:11)
[2017-06-05] MEDS: GABAPENTIN 100 MG CAPSULE PO SCH ×2 (09:12→14:06)
[2017-06-05] MEDS: POLYETHYL GLYCOL 3350 17gm PACKET PO SCH (09:12)
[2017-06-05] MEDS: TAMSULOSIN 0.4 MG CAPSULE PO SCH (09:12)
[2017-06-05] MEDS: ENOXAPARIN 40 MG/0.4 ML INJECTION SQ SCH (09:12)
[2017-06-05] MEDS: ASPIRIN *EC* 81 MG TABLET PO SCH (09:12)
--- NOTE | 2017-06-05 10:50 | XRay Report ---
EXAM: XR chest 1V COMPARISON: Chest x-ray dated 06/03/2017. HISTORY: post NG insertion . FINDINGS: Redemonstration of a nasogastric tube with sidehole and tip projecting over the expected location of the gastric antrum region. There is no pneumothorax. Other chest findings are unchanged. IMPRESSION: Line as described. .
[2017-06-05] MEDS: 1/2 NS 1,000 ML IV SCH (11:18)
--- NOTE | 2017-06-05 11:54 | Progress Note ---
- Date 06/05/17 Subjective: Chris is seen with and family at his side. He is more awake and alert today as his eyes are open. He greets with "hello" and puts his hand out to shake. He continues to have the NG tube inplace for feedings. He denies having pain or feeling short of breath. Vital signs stable. Objective Vital signs: Temperature 96.0 F L 06/05/17 11:19 Pulse Rate 86 06/05/17 11:09 Respiratory Rate 14 06/05/17 11:09 Blood Pressure 128/73 06/05/17 11:09 Pulse Oximetry 94 06/05/17 11:09 Height/Weight/BMI: Height 1.63 m Weight 63.7 kg Body Mass Index 23.0 - Constitutional Present: no acute distress, well nourished, well developed - Routine HEENT Exam Eye: Present: EOMI ENT: Present: mucous membranes moist, dentition normal - Routine Respiratory Exam Present: CTA bilaterally. Absent: wheezes - Routine Cardiovascular Exam Present: RRR, S1, S2. Absent: murmur - Routine Abdominal Exam Present: soft, normoactive bowel sounds, non distended. Absent: tenderness - Routine Extremities Exam Present: pulses intact - Routine Skin Exam Present: dry, warm - Routine Neurological Exam Present: alert, CN II-XII intact, moving all extremities - Routine Lymphatic Exam Lymphatic: Absent: adenopathy - Routine Psychiatric Exam Present: cooperative Results - Labs CBC & Chem 7: 06/05/17 04:54 06/05/17 04:54 Microbiology Results: Microbiology 06/02/17 18:23 Urine, Voided (Cc/notcc) Urine Culture - Final Enterococcus faecalis 06/02/17 15:34 Peripheral/Iv Start Blood Culture - Preliminary No Growth After 2 Days 06/02/17 15:38 Peripheral/Iv Start Blood Culture - Preliminary No Growth After 2 Days Assessment and Plan (1) Pneumonia Current visit: Yes Status: Acute (2) Hypokalemia Current visit: Yes Status: Acute (3) Leukocytosis Current visit: Yes Status: Acute (4) Severe protein-calorie malnutrition Current visit: Yes Status: Acute (5) [place] toxicity Current visit: Yes Status: Acute Assessment and Plan: Acute Medical Conditions Altered mental status, acute. Pneumonia, present on admission. Severe hypokalemia, present on admission. Leukocytosis, present on admission. Rapid weight loss with anorexia. Severe protein calorie malnutrition. [place] toxicity, present on admission. Dementia (vascular) with behavioral disturbance and increased agitation/ restlessness. Major depressive disorder. Dysphagia with declining oral intake ability. UTI Chronic Medical Conditions CAD. Hypertension. Hyperlipidemia. Diabetes mellitus, type II. Diabetic neuropathy. COPD. Sleep apnea with home CPAP. GERD. Dysphagia. Chronic pain. Chronic anemia. Severe depression with prior ECT treatments - 2002. History of alcohol abuse. History of esophageal cancer and Philippe's esophagus. Questionable history of CVA - 2003. Prior suicidal attempt - 2002. Plan Continue Azithromycin 500mg (day 4/5) IV daily for treatment of pneumonia. D/C [place]. Urine culture is positive for Enterococcus Faecalis - Will change to Ampicillin. Could change to PO Macrobid as PO intake improves. Continue with NPO therapeutic, however, patient is more alert today. We will see what speech therapy recommends. Hopeful oral drive will improve. He has been weaned off of oxygen is currently on room air DuoNeb treatments and acapella. Use CPAP. . Questions if any cerebral event such as a stroke had caused patient's acute encephalopathy. We will obtain a CT scan of the brain to rule out intracranial bleeding or ischemia Will consult PT and OT to evaluate patients strength. Prior to this acute illness patient was able to ambulate independently at home. We did discuss long-term plan as feels like patient will need further rehabilitation before he can come home independently. Consider IRU for aggressive rehabilitation DVT Prophylaxis: SCD's, Lovenox Resuscitation Status: Full Code - Time spent with patient Time with patient PN: 25 minutes - Physician Narrative Physician: Madan Juárez MD Narrative: Date: 06/05/17 Time: 0 Have independently interviewed and examined pt. Chart reviewed. Case discussed with my HAND COREMAKER. Care plan developed with my supervision; agree with above. Much more awake and alert. Moving arms and legs spontaneously. Still very weak and unsteady. Able to communicate, but mentation off. Breathing comfortably on RA. Does pull at NG tube intermittently. Lungs: decreased, no distress CV: regular AB: soft nt BS decreased EXT: thin , decreased muscle mass Plan: Continue with tube feeding-not able to advance much today with speech. Not safe at this time to attempt esophagram. Ampicillin started in place of Rocephin to cover lung and urine pathogens. PT/OT to help strength. Will recheck lithium level tomorrow - stopped since admission due to lithium toxicity. Hospital Course Summary Disclaimer: The visit summary below is not to be considered part of the above Progress Note. Hospital Course: Plan - 06/02/17: Admit to inpatient status under the care of Dr. Juárez. Labs obtained on admission - WBC 13.7, Hgb 12.1, K 2.7. CXR revealed pneumonia - blood cultures obtained and pending; lactate 1.3. Monitor closely for signs of sepsis. Rocephin 1g IV daily and Azithromycin 500mg IV daily initiated 06/02/17 for treatment of pneumonia. Potassium boluses x 4 given - monitor electrolytes closely. Monitor cardiac function closely on telemetry. Oxygen as needed to maintain SAO2 >90%. Currently on room air. Does not use oxygen at home. DuoNeb treatments and acapella. Will obtain ABG now given increased lethargy. believes behaviors are secondary to not using his CPAP at night. Speech recommending NPO status given decreased level of consciousness and risk for aspiration. Will hold oral home medications at this time. Significant history of depression. Consider psychiatric consult once mental status improved. Ativan as needed for increased behaviors and air hunger. If mental status does not improve, consider obtaining CT head and/or MRI brain for further evaluation. Will hold lithium given toxicity. Monitor levels. Given anemia and behavior changes, will check B12 level. Will try and obtain UA sample for evaluation. Upon discharge, patient's care will be returned to his PCP, Dr. Steel. 06/03 Continue Rocephin 1g IV daily and Azithromycin 500mg IV daily for treatment of pneumonia. DuoNeb treatments and acapella. Use CPAP. Speech continues to recommend NPO status. NGT to be placed. Start tube feedings. Consult psychiatric aides teacher. Accuchecks q6. Significant history of depression. Consider psychiatric consult once mental status improved. Ativan as needed for increased behaviors and air hunger. Given anemia and behavior changes, will check B12 level. Antibiotics expected to cover UTI. 06/04 Continue Rocephin 1g IV daily and Azithromycin 500mg IV daily for treatment of pneumonia. Speech continues to recommend NPO status. NGT placed and had to be replaced b/c it clogged. Enterococcus being ID'd in urine. Vanco x 1. Monitor. d/w Dr. Dior. He recommends enteral feedings and if patient's mental status continues to improve, he will consider further tests. x-ray shows retained barium. Add lactulose to bowel regimen. 06/05 Continue Azithromycin 500mg (day 4/5) IV daily for treatment of pneumonia. D/C [place]. Urine culture is positive for Enterococcus Faecalis - Will change to Ampicillin. Could change to PO Macrobid as PO intake improves. Continue with NPO therapeutic, however, patient is more alert today. We will see what speech therapy recommends. Hopeful oral drive will improve. He has been weaned off of oxygen is currently on room air. DuoNeb treatments and acapella. Use CPAP. . Questions if any cerebral event such as a stroke had caused patient's acute encephalopathy. We will obtain a CT scan of the brain to rule out intracranial bleeding or ischemia. Will consult PT and OT to evaluate patients strength. Prior to this acute illness patient was able to ambulate independently at home. We did discuss long-term plan as feels like patient will need further rehabilitation before he can come home independently. Consider IRU for aggressive rehabilitation.
[2017-06-05] MEDS ORDERED: VANCOMYCIN - PHARMACY CONSULT MC ONE (12:00)
--- NOTE | 2017-06-05 12:34 | Pharmacy Consult-Antibiotics ---
Pharmacy Consult-Vancomycin - Laboratory Information WBC 6.3 T/MM3 (4.5-11.0) 06/05/17 04:54 BUN 6.0 MG/DL (9-20) L 06/05/17 04:54 Creatinine 0.7 mg/dL (0.8-1.5) L 06/05/17 04:54 - Consult Information VANCOMYCIN CONSULT: After reviewing patient C&S report it was noted that the Urine void culture of Enterococcus faecalis was sensitive to Ampicillin in addition to Vancomycin. Patient currently lists No Known Allergies. KAYLEY Le was contacted and verbal order taken to discontinue the Vancomycin consult and to start Ampicillin 500 mg IV Q6H. Thank you, Minnie Keen [facility]
[2017-06-05] MEDS: AMPICILLIN IV SCH ×2 (13:24→18:20)
[2017-06-05] MEDS: NS IV SCH ×2 (13:24→18:20)
[2017-06-05] MEDS: AZITHROMYCIN IV 500 MG in NS 250ml 250 ML IV SCH (14:06)
--- NOTE | 2017-06-05 15:12 | CT Scan Report ---
EXAM: CT head/brain wo con HISTORY: encephalopathy, fall history COMPARISON: No prior studies are available for comparison PROCEDURE: CT images were obtained throughout the head without contrast enhancement. The current CT scan was performed using radiation dose-reduction techniques. FINDINGS: No intracranial hemorrhage or acute territorial infarct is evident. Generalized age-related cerebral atrophy is present with periventricular and subcortical areas of low attenuation most consistent with chronic ischemic microvascular disease. No space-occupying mass or shift of midline structures is present. The bony calvaria are intact. The visualized paranasal sinuses and mastoid air cells are clear. The orbital contents are within normal limits. IMPRESSION: 1. No acute intracranial process. 2. Chronic senescent changes of the brain. .
[2017-06-05] MEDS: PRAMIPEXOLE 0.5 MG TABLET NG SCH (21:21)
[2017-06-05] MEDS: ROSUVASTATIN 20 MG TABLET NG SCH (21:21)
[2017-06-05] MEDS: GABAPENTIN 600 MG TABLET NG SCH (21:22)
[2017-06-05] MEDS: SALINE FLUSH 10ml SYRINGE IV PRN (22:17)
[2017-06-06] MEDS: NS IV SCH ×4 (00:31→18:25)
[2017-06-06] MEDS: AMPICILLIN IV SCH ×4 (00:31→18:25)
[2017-06-06] MEDS: ACETAMINOPHEN 325 MG TABLET PO PRN ×2 (01:36→21:06)
[2017-06-06] MEDS: 1/2 NS 1,000 ML IV SCH ×3 (05:46→23:27)
[2017-06-06] MEDS: ISOSORBIDE DINITRATE 10 MG TABLET PO SCH (05:57)
[2017-06-06] MEDS: ALBUTEROL/IPRATROPIUM 2.5mg-0.5mg/3ml NEB AEROSOL SCH ×4 (07:17→19:01)
[2017-06-06] MEDS: BUDESONIDE INH.SOLN 0.5mg/2ml NEB AEROSOL SCH ×2 (07:18→19:01)
[2017-06-06] MEDS: POLYETHYL GLYCOL 3350 17gm PACKET PO SCH (08:07)
[2017-06-06] MEDS: LACTULOSE 20 GM/30 ML ORAL LIQUID PO SCH ×2 (08:07→21:04)
[2017-06-06] MEDS: PANTOPRAZOLE 40 MG INJECTION IVP SCH (08:07)
[2017-06-06] MEDS: GABAPENTIN 100 MG CAPSULE PO SCH ×2 (08:08→16:28)
[2017-06-06] MEDS: MODAFINIL 100 MG TABLET PO SCH (08:08)
[2017-06-06] MEDS: TAMSULOSIN 0.4 MG CAPSULE PO SCH (08:08)
[2017-06-06] MEDS: ENOXAPARIN 40 MG/0.4 ML INJECTION SQ SCH (08:08)
[2017-06-06] MEDS: ASPIRIN *EC* 81 MG TABLET PO SCH (08:08)
[2017-06-06] MEDS ORDERED: POTASSIUM CHLORIDE 20 MEQ/15 ML ORAL LIQUID NG ONE (09:12)
--- NOTE | 2017-06-06 09:46 | Progress Note ---
- Date 06/06/17 Subjective: Chris is seen this morning while he up in the chair with PT. He is alert and bright eyed. She says "good morning" and shakes my hand. He denies having pain on examination. He id breathing on room air without distress. NG tube remains intact and he is using mouth sponges regularly. Objective Vital signs: Temperature 95.7 F L 06/06/17 08:00 Pulse Rate 80 06/06/17 08:00 Respiratory Rate 18 06/06/17 08:00 Blood Pressure 119/69 06/06/17 08:00 Pulse Oximetry 96 06/06/17 08:00 Height/Weight/BMI: Height 1.63 m Weight 66.7 kg Body Mass Index 23.0 - Constitutional Present: no acute distress, well nourished, well developed - Routine HEENT Exam Eye: Present: EOMI ENT: Present: mucous membranes moist, dentition normal - Routine Respiratory Exam Present: CTA bilaterally. Absent: wheezes - Routine Cardiovascular Exam Present: RRR, S1, S2. Absent: murmur - Routine Abdominal Exam Present: soft, non distended. Absent: normoactive bowel sounds (hypoactive), tenderness Comments: NG tube intact - Routine Extremities Exam Present: normal capillary refill - Routine Skin Exam Present: intact, dry, warm - Routine Neurological Exam Present: alert, oriented X3, CN II-XII intact - Routine Lymphatic Exam Lymphatic: Absent: adenopathy - Routine Psychiatric Exam Present: normal affect Results - Labs CBC & Chem 7: 06/06/17 05:57 06/06/17 05:57 Microbiology Results: Microbiology 06/02/17 15:34 Peripheral/Iv Start Blood Culture - Preliminary No Growth After 3 Days 06/02/17 15:38 Peripheral/Iv Start Blood Culture - Preliminary No Growth After 3 Days 06/02/17 18:23 Urine, Voided (Cc/notcc) Urine Culture - Final Enterococcus faecalis Assessment and Plan (1) Pneumonia Current visit: Yes Status: Acute (2) Hypokalemia Current visit: Yes Status: Acute (3) Leukocytosis Current visit: Yes Status: Acute (4) Severe protein-calorie malnutrition Current visit: Yes Status: Acute (5) [place] toxicity Current visit: Yes Status: Acute Assessment and Plan: Acute Medical Conditions Altered mental status, acute. Pneumonia, present on admission. Severe hypokalemia, present on admission. Leukocytosis, present on admission. Rapid weight loss with anorexia. Severe protein calorie malnutrition. [place] toxicity, present on admission. Dementia (vascular) with behavioral disturbance and increased agitation/ restlessness. Major depressive disorder. Dysphagia with declining oral intake ability. UTI Chronic Medical Conditions CAD. Hypertension. Hyperlipidemia. Diabetes mellitus, type II. Diabetic neuropathy. COPD. Sleep apnea with home CPAP. GERD. Dysphagia. Chronic pain. Chronic anemia. Severe depression with prior ECT treatments - 2002. History of alcohol abuse. History of esophageal cancer and Philippe's esophagus. Questionable history of CVA - 2003. Prior suicidal attempt - 2002. Plan Discontinue Azithromycin 500mg after today's final dose. Urine culture is positive for Enterococcus Faecalis - continue with Ampicillin. Continue with NPO therapeutic- Continue to work with speech therapy to increase oral intake and driver examiner. Feedings currently Via NG tube. Hypokalemia- Given 40 MEQ now, will repeat 40 meq at 1700. Then schedule [address] brain was negative for acute CVA. Encourage work with PT/OT for strengthening. Hopeful for IRU when medically stable. Marquita Continue Ampicillin for antimicrobial coverage - course of azithromycin completed. [place] level decreased to 0.6 - can restart lithium at 300mg nightly (home dose 900mg). Increase TF to 30cc/hr - would need around 60cc/hr for caloric needs. Encourage PT/OT to help strength. Swallow abilities making slow gains with speech - in discussion with ST today, not sure if swallow ability improved to point of being able to tolerate esophagram. Would hold on IRU discharge until either patient able to maintain oral nutrition on his own, or other feeding modality achieved. Additional oral potassium given as potassium deceases. Monitor lab DVT Prophylaxis: Lovenox GI Prophylaxis: Protonix Resuscitation Status: Full Code - Time spent with patient Time with patient PN: 25 minutes - Physician Narrative Physician: Madan Juárez MD Narrative: Date: 06/06/17 Time: 1600 Have independently interviewed and examined pt. Chart reviewed. Case discussed with CM, Dr Dior, Speech Therapy, and my DOUGHNUT FRYER. Care plan developed with my supervision; agree with above. Doing better today-more wake and alert. Moving more. Tolerating PT/OT. Nursing reports tolerating Tube feeding. Breathing well. No f/c. Lungs: decreased bilaterally, no distress CV: regular AB: soft nt BS decreased MSE: awake alert Plan: Continue Ampicillin for antimicrobial coverage - course of azithromycin completed. [place] level decreased to 0.6 - can restart lithium at 300mg nightly (home dose 900mg). Increase TF to 30cc/hr - would need around 60cc/hr for caloric needs. Encourage PT/OT to help strength. Swallow abilities making slow gains with speech - in discussion with ST today, not sure if swallow ability improved to point of being able to tolerate esophagram. Would hold on IRU discharge until either patient able to maintain oral nutrition on his own, or other feeding modality achieved. Additional oral potassium given as potassium deceases. Monitor lab. Hospital Course Summary Disclaimer: The visit summary below is not to be considered part of the above Progress Note. Hospital Course: Plan - 06/02/17: Admit to inpatient status under the care of Dr. Juárez. Labs obtained on admission - WBC 13.7, Hgb 12.1, K 2.7. CXR revealed pneumonia - blood cultures obtained and pending; lactate 1.3. Monitor closely for signs of sepsis. Rocephin 1g IV daily and Azithromycin 500mg IV daily initiated 06/02/17 for treatment of pneumonia. Potassium boluses x 4 given - monitor electrolytes closely. Monitor cardiac function closely on telemetry. Oxygen as needed to maintain SAO2 >90%. Currently on room air. Does not use oxygen at home. DuoNeb treatments and acapella. Will obtain ABG now given increased lethargy. believes behaviors are secondary to not using his CPAP at night. Speech recommending NPO status given decreased level of consciousness and risk for aspiration. Will hold oral home medications at this time. Significant history of depression. Consider psychiatric consult once mental status improved. Ativan as needed for increased behaviors and air hunger. If mental status does not improve, consider obtaining CT head and/or MRI brain for further evaluation. Will hold lithium given toxicity. Monitor levels. Given anemia and behavior changes, will check B12 level. Will try and obtain UA sample for evaluation. Upon discharge, patient's care will be returned to his PCP, Dr. Steel. 06/03 Continue Rocephin 1g IV daily and Azithromycin 500mg IV daily for treatment of pneumonia. DuoNeb treatments and acapella. Use CPAP. Speech continues to recommend NPO status. NGT to be placed. Start tube feedings. Consult sales and management trainee. Accuchecks q6. Significant history of depression. Consider psychiatric consult once mental status improved. Ativan as needed for increased behaviors and air hunger. Given anemia and behavior changes, will check B12 level. Antibiotics expected to cover UTI. 06/04 Continue Rocephin 1g IV daily and Azithromycin 500mg IV daily for treatment of pneumonia. Speech continues to recommend NPO status. NGT placed and had to be replaced b/c it clogged. Enterococcus being ID'd in urine. Vancomycin x 1. Monitor. d/w Dr. Dior. He recommends enteral feedings and if patient's mental status continues to improve, he will consider further tests. x-ray shows retained barium. Add lactulose to bowel regimen. 06/05 Continue Azithromycin 500mg (day 4/5) IV daily for treatment of pneumonia. D/C Rocephin. Urine culture is positive for Enterococcus Faecalis - Will change to Ampicillin. Could change to PO Macrobid as PO intake improves. Continue with NPO therapeutic, however, patient is more alert today. We will see what speech therapy recommends. Hopeful oral drive will improve. He has been weaned off of oxygen is currently on room air. DuoNeb treatments and acapella. Use CPAP. . Questions if any cerebral event such as a stroke had caused patient's acute encephalopathy. We will obtain a CT scan of the brain to rule out intracranial bleeding or ischemia. Will consult PT and OT to evaluate patients strength. Prior to this acute illness patient was able to ambulate independently at home. We did discuss long-term plan as feels like patient will need further rehabilitation before he can come home independently. Consider IRU for aggressive rehabilitation. 06/06 Discontinue Azithromycin 500mg after today's final dose. Urine culture is positive for Enterococcus Faecalis - continue with Ampicillin. Continue with NPO therapeutic- Continue to work with speech therapy to increase oral intake and driver examiner. Swallow abilities making slow gains with speech - in discussion with ST today, not sure if swallow ability improved to point of being able to tolerate esophagram. Would hold on IRU discharge until either patient able to maintain oral nutrition on his own, or other feeding modality achieved. Feedings currently Via NG tube - will increase rate from 20cc/hr to 30cc/hr -- goal around 60cc/hr. Hypokalemia- Given 40 MEQ now, will repeat 40 meq at 1700. Then schedule 20 Meq BID. [place] level decreased to 0.6 - can restart lithium at 300mg nightly (home dose 900mg). CT brain was negative for acute CVA. Encourage work with PT/OT for strengthening. Hopeful for IRU when medically stable.
[2017-06-06] MEDS: AZITHROMYCIN IV 500 MG in NS 250ml 250 ML IV SCH (14:06)
[2017-06-06] MEDS: ROSUVASTATIN 20 MG TABLET NG SCH (21:03)
[2017-06-06] MEDS: GABAPENTIN 600 MG TABLET NG SCH (21:03)
[2017-06-06] MEDS: PRAMIPEXOLE 0.5 MG TABLET NG SCH (21:03)
[2017-06-06] MEDS: LITHIUM CITRATE PO SCH (21:04)
[2017-06-06] MEDS: SALINE FLUSH 10ml SYRINGE IV PRN (22:17)
[2017-06-07] MEDS: AMPICILLIN IV SCH ×4 (00:46→19:06)
[2017-06-07] MEDS: NS IV SCH ×4 (00:46→19:06)
[2017-06-07] MEDS: ISOSORBIDE DINITRATE 10 MG TABLET PO SCH (05:46)
[2017-06-07] MEDS: ALBUTEROL/IPRATROPIUM 2.5mg-0.5mg/3ml NEB AEROSOL SCH ×4 (07:40→19:46)
[2017-06-07] MEDS: BUDESONIDE INH.SOLN 0.5mg/2ml NEB AEROSOL SCH ×2 (07:40→19:46)
[2017-06-07] MEDS: PANTOPRAZOLE 40 MG INJECTION IVP SCH (10:35)
[2017-06-07] MEDS: ENOXAPARIN 40 MG/0.4 ML INJECTION SQ SCH (10:35)
[2017-06-07] MEDS: GABAPENTIN 100 MG CAPSULE PO SCH ×2 (10:36→15:23)
[2017-06-07] MEDS: LACTULOSE 20 GM/30 ML ORAL LIQUID PO SCH ×2 (10:36→20:57)
[2017-06-07] MEDS: POLYETHYL GLYCOL 3350 17gm PACKET PO SCH (10:36)
[2017-06-07] MEDS: TAMSULOSIN 0.4 MG CAPSULE PO SCH (10:36)
[2017-06-07] MEDS: MODAFINIL 100 MG TABLET PO SCH (10:37)
[2017-06-07] MEDS: ASPIRIN *EC* 81 MG TABLET PO SCH (10:37)
--- NOTE | 2017-06-07 12:53 | Progress Note ---
- Date 06/07/17 Subjective: Chris is seen today in follow up while up in the chair with at his side. He is alert and pleasant during examination. He has been able to tolerated some PO intake with speech therapy this morning. Chris denies having pain or feeling short of breath. Vital sings remain stable. Alertness at baseline. Objective Vital signs: Temperature 95.3 F L 06/07/17 08:00 Pulse Rate 96 06/07/17 12:00 Respiratory Rate 16 06/07/17 12:00 Blood Pressure 119/69 06/07/17 12:00 Pulse Oximetry 98 06/07/17 12:00 Height/Weight/BMI: Height 1.63 m Weight 66.1 kg Body Mass Index 25.0 - Constitutional Present: no acute distress, well nourished, well developed - Routine HEENT Exam Eye: Present: EOMI ENT: Present: mucous membranes moist, dentition normal - Routine Respiratory Exam Present: CTA bilaterally. Absent: wheezes - Routine Cardiovascular Exam Present: RRR, S1, S2. Absent: murmur - Routine Abdominal Exam Present: soft, normoactive bowel sounds, non distended. Absent: tenderness - Routine Extremities Exam Present: normal capillary refill - Routine Back/Spine/Pelvis Exam Back/Spine: Present: full ROM - Routine Skin Exam Present: intact, dry, warm - Routine Neurological Exam Present: alert, CN II-XII intact - Routine Lymphatic Exam Lymphatic: Absent: adenopathy - Routine Psychiatric Exam Present: cooperative Results - Labs CBC & Chem 7: 06/07/17 04:47 06/07/17 04:47 Microbiology Results: Microbiology 06/02/17 15:34 Peripheral/Iv Start Blood Culture - Preliminary No Growth After 4 Days 06/02/17 15:38 Peripheral/Iv Start Blood Culture - Preliminary No Growth After 4 Days 06/02/17 18:23 Urine, Voided (Cc/notcc) Urine Culture - Final Enterococcus faecalis Assessment and Plan (1) Pneumonia Current visit: Yes Status: Acute (2) Hypokalemia Current visit: Yes Status: Acute (3) Leukocytosis Current visit: Yes Status: Acute (4) Severe protein-calorie malnutrition Current visit: Yes Status: Acute (5) [place] toxicity Current visit: Yes Status: Resolved Assessment and Plan: Acute Medical Conditions Altered mental status, acute. Pneumonia, present on admission. Severe hypokalemia, present on admission. Leukocytosis, present on admission. Rapid weight loss with anorexia. Severe protein calorie malnutrition. [place] toxicity, present on admission. Dementia (vascular) with behavioral disturbance and increased agitation/ restlessness. Major depressive disorder. Dysphagia with declining oral intake ability. UTI Chronic Medical Conditions CAD. Hypertension. Hyperlipidemia. Diabetes mellitus, type II. Diabetic neuropathy. COPD. Sleep apnea with home CPAP. GERD. Dysphagia. Chronic pain. Chronic anemia. Severe depression with prior ECT treatments - 2002. History of alcohol abuse. History of esophageal cancer and Philippe's esophagus. Questionable history of CVA - 2003. Prior suicidal attempt - 2002. Plan Diet upgraded to 6 small meals of pureed with nectar thick liquid. At this point will keep tube feeding at 30ml/hr for added nutrition. Will hopefully be able to decrease tube feedings as PO drive improves Urine culture is positive for Enterococcus Faecalis - continue with Ampicillin. [place] level normalized Electrolytes improved. Recheck CBC and BMP tomorrow Encourage work with PT/OT for strengthening. Hopeful for IRU when medically stable. DVT Prophylaxis: SCD's, Lovenox Resuscitation Status: Full Code - Time spent with patient Time with patient PN: 25 minutes - Physician Narrative Physician: Madan Juárez MD Narrative: Date: 06/07/17 Time: 1520 Have independently interviewed and examined pt. Chart reviewed. Case discussed with CM, Speech, and my LUBRICATION SERVICER. Care plan developed with my supervision; agree with above. Improving. Speech able to upgrade diet to 6 small meals a day. Doing okay with oral intake. Still VERY weak, but able to be up and ambulate with therapy. Not reporting nausea or ab pain. Breathing well. Lungs: decreased, no distress on RA. CV: regular AB: soft flat nt, BS decreased MSE: awake alert Plan: Encouraging that able to advance diet. Would continue with TF as uncertain if he will be able to get enough nutrition in orally. Sodium with increase-will change IVF to D5W at 40cc/hr. Start bladder retraining. Encourage continued work with therapy. Monitor lab. Overall, making gains. Hospital Course Summary Disclaimer: The visit summary below is not to be considered part of the above Progress Note. Hospital Course: Plan - 06/02/17: Admit to inpatient status under the care of Dr. Juárez. Labs obtained on admission - WBC 13.7, Hgb 12.1, K 2.7. CXR revealed pneumonia - blood cultures obtained and pending; lactate 1.3. Monitor closely for signs of sepsis. Rocephin 1g IV daily and Azithromycin 500mg IV daily initiated 06/02/17 for treatment of pneumonia. Potassium boluses x 4 given - monitor electrolytes closely. Monitor cardiac function closely on telemetry. Oxygen as needed to maintain SAO2 >90%. Currently on room air. Does not use oxygen at home. DuoNeb treatments and acapella. Will obtain ABG now given increased lethargy. believes behaviors are secondary to not using his CPAP at night. Speech recommending NPO status given decreased level of consciousness and risk for aspiration. Will hold oral home medications at this time. Significant history of depression. Consider psychiatric consult once mental status improved. Ativan as needed for increased behaviors and air hunger. If mental status does not improve, consider obtaining CT head and/or MRI brain for further evaluation. Will hold lithium given toxicity. Monitor levels. Given anemia and behavior changes, will check B12 level. Will try and obtain UA sample for evaluation. Upon discharge, patient's care will be returned to his PCP, Dr. Steel. 06/03 Continue Rocephin 1g IV daily and Azithromycin 500mg IV daily for treatment of pneumonia. DuoNeb treatments and acapella. Use CPAP. Speech continues to recommend NPO status. NGT to be placed. Start tube feedings. Consult electrical manufacturing engineer. Accuchecks q6. Significant history of depression. Consider psychiatric consult once mental status improved. Ativan as needed for increased behaviors and air hunger. Given anemia and behavior changes, will check B12 level. Antibiotics expected to cover UTI. 06/04 Continue Rocephin 1g IV daily and Azithromycin 500mg IV daily for treatment of pneumonia. Speech continues to recommend NPO status. NGT placed and had to be replaced b/c it clogged. Enterococcus being ID'd in urine. Vancomycin x 1. Monitor. d/w Dr. Dior. He recommends enteral feedings and if patient's mental status continues to improve, he will consider further tests. x-ray shows retained barium. Add lactulose to bowel regimen. 06/05 Continue Azithromycin 500mg (day 4/5) IV daily for treatment of pneumonia. D/C Rocephin. Urine culture is positive for Enterococcus Faecalis - Will change to Ampicillin. Could change to PO Macrobid as PO intake improves. Continue with NPO therapeutic, however, patient is more alert today. We will see what speech therapy recommends. Hopeful oral drive will improve. He has been weaned off of oxygen is currently on room air. DuoNeb treatments and acapella. Use CPAP. . Questions if any cerebral event such as a stroke had caused patient's acute encephalopathy. We will obtain a CT scan of the brain to rule out intracranial bleeding or ischemia. Will consult PT and OT to evaluate patients strength. Prior to this acute illness patient was able to ambulate independently at home. We did discuss long-term plan as feels like patient will need further rehabilitation before he can come home independently. Consider IRU for aggressive rehabilitation. 06/06 Discontinue Azithromycin 500mg after today's final dose. Urine culture is positive for Enterococcus Faecalis - continue with Ampicillin. Continue with NPO therapeutic- Continue to work with speech therapy to increase oral intake and bulk driver. Swallow abilities making slow gains with speech - in discussion with ST today, not sure if swallow ability improved to point of being able to tolerate esophagram. Would hold on IRU discharge until either patient able to maintain oral nutrition on his own, or other feeding modality achieved. Feedings currently Via NG tube - will increase rate from 20cc/hr to 30cc/hr -- goal around 60cc/hr. Hypokalemia- Given 40 MEQ now, will repeat 40 meq at 1700. Then schedule 20 Meq BID. [place] level decreased to 0.6 - can restart lithium at 300mg nightly (home dose 900mg). CT brain was negative for acute CVA. Encourage work with PT/OT for strengthening. Hopeful for IRU when medically stable. 06/07 Diet upgraded to 6 small meals of pureed with nectar thick liquid. At this point will keep tube feeding at 30ml/hr for added nutrition. Will hopefully be able to decrease tube feedings as PO drive improves. As serum sodium increase to 148, will change IVF to D5W at 40cc/hr. Urine culture is positive for Enterococcus Faecalis - continue with Ampicillin. Start bladder retraining. [place] level normalized. Electrolytes improved. Recheck CBC and BMP tomorrow. Encourage work with PT/OT for strengthening. Hopeful for IRU when medically stable.
[2017-06-07] MEDS: 1/2 NS 1,000 ML IV SCH (14:02)
[2017-06-07] MEDS: D5W 1,000 ML IV SCH (15:24)
[2017-06-07] MEDS: PRAMIPEXOLE 0.5 MG TABLET NG SCH (20:52)
[2017-06-07] MEDS: ROSUVASTATIN 20 MG TABLET NG SCH (20:52)
[2017-06-07] MEDS: GABAPENTIN 600 MG TABLET NG SCH (20:52)
[2017-06-07] MEDS: LITHIUM CITRATE PO SCH (20:52)
[2017-06-07] MEDS: SALINE FLUSH 10ml SYRINGE IV PRN (22:57)
[2017-06-08] MEDS: NS IV SCH ×4 (00:45→19:06)
[2017-06-08] MEDS: AMPICILLIN IV SCH ×4 (00:45→19:06)
[2017-06-08] MEDS: ISOSORBIDE DINITRATE 10 MG TABLET PO SCH (05:32)
[2017-06-08] MEDS: ISOSORBIDE MONONITRATE ER 30 MG TABLET PO SCH (06:44)
[2017-06-08] MEDS: ALBUTEROL/IPRATROPIUM 2.5mg-0.5mg/3ml NEB AEROSOL SCH ×4 (06:47→18:44)
[2017-06-08] MEDS: BUDESONIDE INH.SOLN 0.5mg/2ml NEB AEROSOL SCH ×2 (06:47→18:44)
[2017-06-08] MEDS: PANTOPRAZOLE 40 MG INJECTION IVP SCH (09:15)
[2017-06-08] MEDS: POLYETHYL GLYCOL 3350 17gm PACKET PO SCH (09:15)
[2017-06-08] MEDS: SALINE FLUSH 10ml SYRINGE IV PRN (09:15)
[2017-06-08] MEDS: ENOXAPARIN 40 MG/0.4 ML INJECTION SQ SCH (09:15)
[2017-06-08] MEDS: MODAFINIL 100 MG TABLET PO SCH (09:16)
[2017-06-08] MEDS: LACTULOSE 20 GM/30 ML ORAL LIQUID PO SCH ×2 (09:16→22:26)
[2017-06-08] MEDS: ASPIRIN *EC* 81 MG TABLET PO SCH (09:16)
[2017-06-08] MEDS: TAMSULOSIN 0.4 MG CAPSULE PO SCH (09:17)
[2017-06-08] MEDS: GABAPENTIN 100 MG CAPSULE PO SCH ×2 (09:17→15:49)
--- NOTE | 2017-06-08 11:35 | Progress Note ---
- Date 06/08/17 Subjective: F/U: Altered mental status, Pneumonia, UTI with Enterococcus faecalis Seeing improvement. Mentation improving-awake, alert and interacting well. reports he is starting to make jokes! Oral intake ability increasing; not feeling like he is choking or gagging with swallow. No pain with swallow. Denies ab pain or reflux. Bowels moving. Breathing well on RA-slight cough but not SOA or congested. Tolerating therapy - moving more. Therapy reports patient still very weak and unsteady. Objective Vital signs: Temperature 96.2 F L 06/08/17 07:13 Pulse Rate 92 06/08/17 08:00 Respiratory Rate 18 06/08/17 10:36 Blood Pressure 109/64 06/08/17 07:13 Pulse Oximetry 98 06/08/17 10:36 Height/Weight/BMI: Height 1.63 m Weight 68.1 kg Body Mass Index 25.0 - Constitutional Present: well nourished, well developed, average body habitus, cooperative - Routine HEENT Exam Head: Present: normocephalic, atraumatic Eye: Present: EOMI, PERRL ENT: Present: mucous membranes moist - Routine Respiratory Exam Present: decreased breath sounds. Absent: rales, respiratory distress, rhonchi - Routine Cardiovascular Exam Present: RRR, no murmur - Routine Abdominal Exam Present: soft, normoactive bowel sounds, non distended, non tender - Routine Exam Comments: Burton present - Routine Extremities Exam Present: no edema, pulses intact. Absent: cyanosis, clubbing - Routine Musculoskeletal Exam Musculoskeletal: Present: no clubbing or cyanosis - Routine Skin Exam Present: dry, warm - Routine Neurological Exam Present: alert, CN II-XII intact, moving all extremities, vision grossly intact , hearing grossly intact - Routine Psychiatric Exam Present: normal affect, cooperative. Absent: anxious, agitated Results - Labs CBC & Chem 7: 06/08/17 04:07 06/08/17 04:07 Microbiology Results: Microbiology 06/02/17 15:38 Peripheral/Iv Start Blood Culture - Final No Growth After 5 Days 06/02/17 15:34 Peripheral/Iv Start Blood Culture - Final No Growth After 5 Days 06/02/17 18:23 Urine, Voided (Cc/notcc) Urine Culture - Final Enterococcus faecalis Assessment and Plan (1) Pneumonia Current visit: Yes Status: Acute (2) Hypokalemia Current visit: Yes Status: Acute (3) Leukocytosis Current visit: Yes Status: Acute (4) Severe protein-calorie malnutrition Current visit: Yes Status: Acute (5) [place] toxicity Current visit: Yes Status: Resolved Assessment and Plan: Acute Medical Conditions Altered mental status, acute. - resolved Pneumonia (POA) UTI with Enterococcus faecalis (POA) Severe hypokalemia (POA) Leukocytosis (POA) - resolved Rapid weight loss with anorexia Severe protein calorie malnutrition [place] toxicity (POA) - resolved Dementia (vascular) with behavioral disturbance and increased agitation/ restlessness. Major depressive disorder. Dysphagia with declining oral intake ability. Chronic Medical Conditions CAD Hypertension Hyperlipidemia Diabetes mellitus, type II Diabetic neuropathy COPD Sleep apnea with home CPAP GERD Dysphagia Chronic pain Chronic anemia Severe depression with prior ECT treatments - 2002 History of alcohol abuse History of esophageal cancer and Philippe's esophagus Questionable history of CVA - 2003 Prior suicidal attempt - 2002 Plan Strength improving, still very weak but moving more with therapy. Oral intake improving. Tolerating 6 small meals of pureed with nectar thick liquid. Speech checking on calorie count. Continue tube feeding at 30ml/hr for added nutrition. IF Feeding Tube would inadvertently be removed, would leave out at this time. Will oral intake improving, not certain if doing well enough to maintain on his own. My concern with move to IRU at this point is may not have definitive feeding route. Would not want him to decline on IRU prompting readmission. With his prior surgery, uncertain if Feeding Tube would be a viable option. NG tube would limit information obtained from esophagram. Continue with Ampicillin for urinary coverage. Additional oral potassium today at noon as potassium decreased to 3.3. Sodium with decrease to 145 - continue D5W. Will remove Burton cath. Nursing to check post void bladder scans to make sure pt emptying bladder. Recheck CBC and BMP tomorrow due to hypokalemia and resolving pneumonia/UTI. Case discussed with CM, Speech therapy, PT, Zach Morin with radiology, and family. Time spent with patient care 35 minutes. DVT Prophylaxis: SCD's Resuscitation Status: Full Code - Time spent with patient Time with patient PN: 35 minutes - Physician Narrative Physician: Madan Juárez MD Narrative: Date: 06/08/17 Time: 1129 Hospital Course Summary Disclaimer: The visit summary below is not to be considered part of the above Progress Note. Hospital Course: Plan - 06/02/17: Admit to inpatient status under the care of Dr. Juárez. Labs obtained on admission - WBC 13.7, Hgb 12.1, K 2.7. CXR revealed pneumonia - blood cultures obtained and pending; lactate 1.3. Monitor closely for signs of sepsis. Rocephin 1g IV daily and Azithromycin 500mg IV daily initiated 06/02/17 for treatment of pneumonia. Potassium boluses x 4 given - monitor electrolytes closely. Monitor cardiac function closely on telemetry. Oxygen as needed to maintain SAO2 >90%. Currently on room air. Does not use oxygen at home. DuoNeb treatments and acapella. Will obtain ABG now given increased lethargy. believes behaviors are secondary to not using his CPAP at night. Speech recommending NPO status given decreased level of consciousness and risk for aspiration. Will hold oral home medications at this time. Significant history of depression. Consider psychiatric consult once mental status improved. Ativan as needed for increased behaviors and air hunger. If mental status does not improve, consider obtaining CT head and/or MRI brain for further evaluation. Will hold lithium given toxicity. Monitor levels. Given anemia and behavior changes, will check B12 level. Will try and obtain UA sample for evaluation. Upon discharge, patient's care will be returned to his PCP, Dr. Steel. 06/03 Continue Rocephin 1g IV daily and Azithromycin 500mg IV daily for treatment of pneumonia. DuoNeb treatments and acapella. Use CPAP. Speech continues to recommend NPO status. NGT to be placed. Start tube feedings. Consult feed weigher. Accuchecks q6. Significant history of depression. Consider psychiatric consult once mental status improved. Ativan as needed for increased behaviors and air hunger. Given anemia and behavior changes, will check B12 level. Antibiotics expected to cover UTI. 06/04 Continue Rocephin 1g IV daily and Azithromycin 500mg IV daily for treatment of pneumonia. Speech continues to recommend NPO status. NGT placed and had to be replaced b/c it clogged. Enterococcus being ID'd in urine. Vancomycin x 1. Monitor. d/w Dr. Dior. He recommends enteral feedings and if patient's mental status continues to improve, he will consider further tests. x-ray shows retained barium. Add lactulose to bowel regimen. 06/05 Continue Azithromycin 500mg (day 4/5) IV daily for treatment of pneumonia. D/C Rocephin. Urine culture is positive for Enterococcus Faecalis - Will change to Ampicillin. Could change to PO Macrobid as PO intake improves. Continue with NPO therapeutic, however, patient is more alert today. We will see what speech therapy recommends. Hopeful oral drive will improve. He has been weaned off of oxygen is currently on room air. DuoNeb treatments and acapella. Use CPAP. . Questions if any cerebral event such as a stroke had caused patient's acute encephalopathy. We will obtain a CT scan of the brain to rule out intracranial bleeding or ischemia. Will consult PT and OT to evaluate patients strength. Prior to this acute illness patient was able to ambulate independently at home. We did discuss long-term plan as feels like patient will need further rehabilitation before he can come home independently. Consider IRU for aggressive rehabilitation. 06/06 Discontinue Azithromycin 500mg after today's final dose. Urine culture is positive for Enterococcus Faecalis - continue with Ampicillin. 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 Swallow abilities making slow gains with speech - in discussion with ST today, not sure if swallow ability improved to point of being able to tolerate esophagram. Would hold on IRU discharge until either patient able to maintain oral nutrition on his own, or other feeding modality achieved. Feedings currently Via NG tube - will increase rate from 20cc/hr to 30cc/hr -- goal around 60cc/hr. Hypokalemia- Given 40 MEQ now, will repeat 40 meq at 1700. Then schedule 20 Meq BID. [place] level decreased to 0.6 - can restart lithium at 300mg nightly (home dose 900mg). CT brain was negative for acute CVA. Encourage work with PT/OT for strengthening. Hopeful for IRU when medically stable. 06/07 Diet upgraded to 6 small meals of pureed with nectar thick liquid. At this point will keep tube feeding at 30ml/hr for added nutrition. Will hopefully be able to decrease tube feedings as PO drive improves. As serum sodium increase to 148, will change IVF to D5W at 40cc/hr. Continue with Ampicillin for urinary coverage. Start bladder retraining. Encourage work with PT/OT for strengthening. Hopeful for IRU when medically stable. / Strength improving, still very weak but moving more with therapy. Oral intake improving. Tolerating 6 small meals of pureed with nectar thick liquid. Speech checking on calorie count. Continue tube feeding at 30ml/hr for added nutrition. IF Feeding Tube would inadvertently be removed, would leave out at this time. Will oral intake improving, not certain if doing well enough to maintain on his own. My concern with move to IRU at this point is may not have definitive feeding route. Would not want him to decline on IRU prompting readmission. With his prior surgery, uncertain if Feeding Tube would be a viable option. NG tube would limit information obtained from esophagram. Continue with Ampicillin for urinary coverage. Additional oral potassium today at noon as potassium decreased to 3.3. Sodium with decrease to 145 - continue D5W. Will remove Burton cath. Nursing to check post void bladder scans to make sure pt emptying bladder.
[2017-06-08] MEDS ORDERED: POTASSIUM CHLORIDE 20 MEQ/15 ML ORAL LIQUID PO ONE (12:00)
[2017-06-08] MEDS: D5W 1,000 ML IV SCH (15:50)
[2017-06-08] MEDS: GABAPENTIN 600 MG TABLET NG SCH (22:26)
[2017-06-08] MEDS: ROSUVASTATIN 20 MG TABLET NG SCH (22:26)
[2017-06-08] MEDS: PRAMIPEXOLE 0.5 MG TABLET NG SCH (22:26)
[2017-06-08] MEDS: LITHIUM CITRATE PO SCH (22:26)
[2017-06-09] MEDS: NS IV SCH ×4 (00:37→18:54)
[2017-06-09] MEDS: AMPICILLIN IV SCH ×4 (00:37→18:54)
[2017-06-09] MEDS: ISOSORBIDE DINITRATE 10 MG TABLET PO SCH (06:19)
[2017-06-09] MEDS: ISOSORBIDE MONONITRATE ER 30 MG TABLET PO SCH (06:19)
[2017-06-09] MEDS: ALBUTEROL/IPRATROPIUM 2.5mg-0.5mg/3ml NEB AEROSOL SCH ×4 (06:50→18:43)
[2017-06-09] MEDS: MODAFINIL 100 MG TABLET PO SCH (08:58)
[2017-06-09] MEDS: LACTULOSE 20 GM/30 ML ORAL LIQUID PO SCH ×2 (08:58→21:38)
[2017-06-09] MEDS: ENOXAPARIN 40 MG/0.4 ML INJECTION SQ SCH (08:59)
[2017-06-09] MEDS: POLYETHYL GLYCOL 3350 17gm PACKET PO SCH (08:59)
[2017-06-09] MEDS: TAMSULOSIN 0.4 MG CAPSULE PO SCH (09:00)
[2017-06-09] MEDS: GABAPENTIN 100 MG CAPSULE PO SCH ×2 (09:00→18:55)
[2017-06-09] MEDS: PANTOPRAZOLE 40 MG INJECTION IVP SCH (09:00)
[2017-06-09] MEDS: ASPIRIN *EC* 81 MG TABLET PO SCH (09:01)
--- NOTE | 2017-06-09 13:41 | Progress Note ---
- Date 06/09/17 Subjective: Chris continues to improve. He hasn't had any problems since the NGT was dc'd. He ate about 50% of breakfast. He is currently NPO for esophagram. Family and RN state he is more alert and talkative. He has been able to void since the catheter was dc'd. He denies feeling weak/dizzy but family and RN stated that he was unsteady on his feet. He denies any chest pain, SOA, or abdominal pain. His bowels are moving. Objective Vital signs: Temperature 97.7 F 06/09/17 11:11 Pulse Rate 78 06/09/17 11:08 Respiratory Rate 20 06/09/17 11:30 Blood Pressure 114/66 06/09/17 11:08 Pulse Oximetry 95 06/09/17 11:30 Height/Weight/BMI: Height 1.63 m Weight 68.7 kg Body Mass Index 25.0 - Constitutional Present: no acute distress, well nourished, well developed, thin - Routine HEENT Exam Head: Present: normocephalic Eye: Present: PERRL. Absent: conjunctival icterus, scleral injection ENT: Present: mucous membranes moist, oropharynx clear. Absent: dentition normal (edentulous) - Routine Respiratory Exam Present: CTA bilaterally - Routine Cardiovascular Exam Present: RRR, S1, S2, murmur - Routine Abdominal Exam Present: soft, non distended, non tender. Absent: normoactive bowel sounds ( hypoactive) - Routine Extremities Exam Present: no edema, pulses intact - Routine Musculoskeletal Exam Musculoskeletal: Present: no clubbing or cyanosis - Routine Skin Exam Present: intact, dry, warm - Routine Neurological Exam Present: alert, CN II-XII intact, moving all extremities, vision grossly intact , hearing grossly intact, normal speech - Routine Psychiatric Exam Present: normal affect, normal thought process, cooperative Results - Labs CBC & Chem 7: 06/09/17 04:40 06/09/17 04:40 Microbiology Results: Microbiology 06/02/17 15:38 Peripheral/Iv Start Blood Culture - Final No Growth After 5 Days 06/02/17 15:34 Peripheral/Iv Start Blood Culture - Final No Growth After 5 Days 06/02/17 18:23 Urine, Voided (Cc/notcc) Urine Culture - Final Enterococcus faecalis Assessment and Plan (1) Pneumonia Current visit: Yes Status: Acute (2) Hypokalemia Current visit: Yes Status: Acute (3) Leukocytosis Current visit: Yes Status: Acute (4) Severe protein-calorie malnutrition Current visit: Yes Status: Acute (5) [place] toxicity Current visit: Yes Status: Resolved Assessment and Plan: Acute Medical Conditions Altered mental status, acute. - resolved Pneumonia (POA) UTI with Enterococcus faecalis (POA) Severe hypokalemia (POA) Leukocytosis (POA) - resolved Rapid weight loss with anorexia Severe protein calorie malnutrition [place] toxicity (POA) - resolved Dementia (vascular) with behavioral disturbance and increased agitation/ restlessness. Major depressive disorder. Dysphagia with declining oral intake ability. Chronic Medical Conditions CAD Hypertension Hyperlipidemia Diabetes mellitus, type II Diabetic neuropathy COPD Sleep apnea with home CPAP GERD Dysphagia Chronic pain Chronic anemia Severe depression with prior ECT treatments - 2002 History of alcohol abuse History of esophageal cancer and Philippe's esophagus Questionable history of CVA - 2003 Prior suicidal attempt - 2002 Plan NGT dc'd, pt ate 50% of breakfast. Awaiting esophagram. Voiding well since Burton was dc'd. K improved to 3.6, Na down to 144. Mg stable. Hgb stable at 9.2. Renal function stable. Continue D5W for now. Give extra dose of KDur since K is still low-normal. Continue Ampicillin for urinary coverage, day #5. DVT Prophylaxis: Lovenox GI Prophylaxis: Protonix Resuscitation Status: Full Code - Time spent with patient Time with patient PN: 25 minutes - Physician Narrative Physician: Madan Juárez MD Narrative: Date: 06/09/17 Time: 1450 Have independently interviewed and examined pt. Chart reviewed. Case discussed with CM, Speech, Dr Dior and my LEASE ADMINISTRATION ANALYST. Care plan developed with my supervision ; agree with above. Doing okay this afternoon. DH became clogged this am-not able flush or aspirate. Tube removed and pt did undergo esophagram this afternoon. No stenosis of the lower esophagus of duodenum!! Barium pass through well. Speech working to increase consistency of food. Tolerating PT. Lungs: decreased CV: regular AB: soft nt MSE: awake alert Plan: DH tube removed. Continue to work on improving swallow function and oral intake. Nothing that restricts flow of food. Unfortunately, with his anatomy, it does not look like feeding tube would be option. Continue with supportive care. Hospital Course Summary Disclaimer: The visit summary below is not to be considered part of the above Progress Note. Hospital Course: Plan - 06/02/17: Admit to inpatient status under the care of Dr. Juárez. Labs obtained on admission - WBC 13.7, Hgb 12.1, K 2.7. CXR revealed pneumonia - blood cultures obtained and pending; lactate 1.3. Monitor closely for signs of sepsis. Rocephin 1g IV daily and Azithromycin 500mg IV daily initiated 06/02/17 for treatment of pneumonia. Potassium boluses x 4 given - monitor electrolytes closely. Monitor cardiac function closely on telemetry. Oxygen as needed to maintain SAO2 >90%. Currently on room air. Does not use oxygen at home. DuoNeb treatments and acapella. Will obtain ABG now given increased lethargy. believes behaviors are secondary to not using his CPAP at night. Speech recommending NPO status given decreased level of consciousness and risk for aspiration. Will hold oral home medications at this time. Significant history of depression. Consider psychiatric consult once mental status improved. Ativan as needed for increased behaviors and air hunger. If mental status does not improve, consider obtaining CT head and/or MRI brain for further evaluation. Will hold lithium given toxicity. Monitor levels. Given anemia and behavior changes, will check B12 level. Will try and obtain UA sample for evaluation. Upon discharge, patient's care will be returned to his PCP, Dr. Steel. 06/03 Continue Rocephin 1g IV daily and Azithromycin 500mg IV daily for treatment of pneumonia. DuoNeb treatments and acapella. Use CPAP. Speech continues to recommend NPO status. NGT to be placed. Start tube feedings. Consult yoke setter. Accuchecks q6. Significant history of depression. Consider psychiatric consult once mental status improved. Ativan as needed for increased behaviors and air hunger. Given anemia and behavior changes, will check B12 level. Antibiotics expected to cover UTI. 06/04 Continue Rocephin 1g IV daily and Azithromycin 500mg IV daily for treatment of pneumonia. Speech continues to recommend NPO status. NGT placed and had to be replaced b/c it clogged. Enterococcus being ID'd in urine. Vancomycin x 1. Monitor. d/w Dr. Dior. He recommends enteral feedings and if patient's mental status continues to improve, he will consider further tests. x-ray shows retained barium. Add lactulose to bowel regimen. 06/05 Continue Azithromycin 500mg (day 4/5) IV daily for treatment of pneumonia. D/C Rocephin. Urine culture is positive for Enterococcus Faecalis - Will change to Ampicillin. Could change to PO Macrobid as PO intake improves. Continue with NPO therapeutic, however, patient is more alert today. We will see what speech therapy recommends. Hopeful oral drive will improve. He has been weaned off of oxygen is currently on room air. DuoNeb treatments and acapella. Use CPAP. . Questions if any cerebral event such as a stroke had caused patient's acute encephalopathy. We will obtain a CT scan of the brain to rule out intracranial bleeding or ischemia. Will consult PT and OT to evaluate patients strength. Prior to this acute illness patient was able to ambulate independently at home. We did discuss long-term plan as feels like patient will need further rehabilitation before he can come home independently. Consider IRU for aggressive rehabilitation. 06/06 Discontinue Azithromycin 500mg after today's final dose. Urine culture is positive for Enterococcus Faecalis - continue with Ampicillin. 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 Swallow abilities making slow gains with speech - in discussion with ST today, not sure if swallow ability improved to point of being able to tolerate esophagram. Would hold on IRU discharge until either patient able to maintain oral nutrition on his own, or other feeding modality achieved. Feedings currently Via NG tube - will increase rate from 20cc/hr to 30cc/hr -- goal around 60cc/hr. Hypokalemia- Given 40 MEQ now, will repeat 40 meq at 1700. Then schedule 20 Meq BID. [place] level decreased to 0.6 - can restart lithium at 300mg nightly (home dose 900mg). CT brain was negative for acute CVA. Encourage work with PT/OT for strengthening. Hopeful for IRU when medically stable. 06/07 Diet upgraded to 6 small meals of pureed with nectar thick liquid. At this point will keep tube feeding at 30ml/hr for added nutrition. Will hopefully be able to decrease tube feedings as PO drive improves. As serum sodium increase to 148, will change IVF to D5W at 40cc/hr. Continue with Ampicillin for urinary coverage. Start bladder retraining. Encourage work with PT/OT for strengthening. Hopeful for IRU when medically stable. 4/12 Strength improving, still very weak but moving more with therapy. Oral intake improving. Tolerating 6 small meals of pureed with nectar thick liquid. Speech checking on calorie count. Continue tube feeding at 30ml/hr for added nutrition. IF Feeding Tube would inadvertently be removed, would leave out at this time. Will oral intake improving, not certain if doing well enough to maintain on his own. My concern with move to IRU at this point is may not have definitive feeding route. Would not want him to decline on IRU prompting readmission. With his prior surgery, uncertain if Feeding Tube would be a viable option. NG tube would limit information obtained from esophagram. Continue with Ampicillin for urinary coverage. Additional oral potassium today at noon as potassium decreased to 3.3. Sodium with decrease to 145 - continue D5W. Will remove Burton cath. Nursing to check post void bladder scans to make sure pt emptying bladder. / NGT dc'd (became clogged and was not functioning), pt ate 50% of breakfast. Preliminary esophagram repot: No stenosis of the lower esophagus of duodenum!! Barium pass through well. Speech working to increase consistency of food. Unfortunately, with his anatomy, it does not look like feeding tube would be option. Voiding well since Burton was dc'd. K improved to 3.6, Na down to 144. Mg stable. Hgb stable at 9.2. Renal function stable. Continue D5W for now. Give extra dose of KDur since K is still low-normal. Continue Ampicillin for urinary coverage, day #5.
--- NOTE | 2017-06-09 15:37 | Fluoroscopy Report ---
Indication:difficulty swallowing Procedure:FL esophagram ESOPHAGRAM: Technique: After ingesting air crystals, the patient swallowed thick and thin barium without difficulty. Fluoroscopic imaging was obtained in the upright LPO, upright AP, and upright right lateral positions. Due to the patient's aspiration risk, no supine imaging was obtained. Findings: Findings suggestive of an esophagectomy with esophagogastric anastomosis. The patient's surgical history was confirmed by Dr. Dior. A majority of the existing stomach is located in the thoracic cavity. A small portion of the antrum of the stomach and the duodenal bulb is located below the diaphragm. The remainder of the exam is negative. Esophageal motility through the stomach and into the small bowel appear normal. There is no obvious stricture. There is no extravasation of contrast to suggest a leak. Impression: 1. Esophagectomy. 2. No extravasation of contrast to suggest leak. 3. No obvious stricture is identified. Fluoroscopy Dose: 125.68 mGy (Cumulative air kerma) Zach Morin RPA/DASHAWN performed this under my direct supervision. .
[2017-06-09] MEDS ORDERED: TRAMADOL/APAP 37.5 MG/325 MG TABLET PO PRN (18:15)
[2017-06-09] MEDS: BUDESONIDE INH.SOLN 0.5mg/2ml NEB AEROSOL SCH (18:43)
[2017-06-09] MEDS: D5W 1,000 ML IV SCH (18:54)
[2017-06-09] MEDS: LITHIUM CITRATE PO SCH (21:37)
[2017-06-09] MEDS: ROSUVASTATIN 20 MG TABLET PO SCH (21:37)
[2017-06-09] MEDS: GABAPENTIN 600 MG TABLET PO SCH (21:38)
[2017-06-09] MEDS: PRAMIPEXOLE 0.5 MG TABLET PO SCH (21:39)
[2017-06-10] MEDS: AMPICILLIN IV SCH ×4 (01:23→18:18)
[2017-06-10] MEDS: NS IV SCH ×4 (01:23→18:18)
[2017-06-10] MEDS: ISOSORBIDE DINITRATE 10 MG TABLET PO SCH (06:10)
[2017-06-10] MEDS: ALBUTEROL/IPRATROPIUM 2.5mg-0.5mg/3ml NEB AEROSOL SCH ×4 (07:02→19:28)
[2017-06-10] MEDS: BUDESONIDE INH.SOLN 0.5mg/2ml NEB AEROSOL SCH ×2 (07:02→19:28)
[2017-06-10] MEDS: SALINE FLUSH 10ml SYRINGE IV PRN ×3 (10:20→13:00)
[2017-06-10] MEDS: MODAFINIL 100 MG TABLET PO SCH (10:21)
[2017-06-10] MEDS: PANTOPRAZOLE 40 MG INJECTION IVP SCH (10:21)
[2017-06-10] MEDS: ENOXAPARIN 40 MG/0.4 ML INJECTION SQ SCH (10:21)
[2017-06-10] MEDS: ASPIRIN *EC* 81 MG TABLET PO SCH (10:22)
[2017-06-10] MEDS: TAMSULOSIN 0.4 MG CAPSULE PO SCH (10:22)
[2017-06-10] MEDS: GABAPENTIN 100 MG CAPSULE PO SCH ×2 (10:22→15:57)
[2017-06-10] MEDS ORDERED: LACTULOSE 20 GM/30 ML ORAL LIQUID PO PRN (11:00)
[2017-06-10] MEDS ORDERED: POLYETHYL GLYCOL 3350 17gm PACKET PO PRN (11:00)
[2017-06-10] MEDS: LACTULOSE 20 GM/30 ML ORAL LIQUID PO SCH (11:08)
[2017-06-10] MEDS: POLYETHYL GLYCOL 3350 17gm PACKET PO SCH (11:08)
--- NOTE | 2017-06-10 11:23 | Progress Note ---
- Date 06/10/17 Subjective: F/U: Pneumonia, UTI with Enterococcus faecalis Doing okay today. Did have bad episode of choking with taking meds last night. Oral intake ability improving, appetite with some decreased. No nausea. Bowels moving. Breathing well-not SOA, but some cough. Strength increasing. Objective Vital signs: Temperature 97.2 F 06/10/17 07:41 Pulse Rate 63 06/10/17 08:00 Respiratory Rate 18 06/10/17 10:46 Blood Pressure 104/62 06/10/17 07:41 Pulse Oximetry 94 06/10/17 10:46 Height/Weight/BMI: Height 1.63 m Weight 66.5 kg Body Mass Index 25.0 - Constitutional Present: well nourished, well developed, average body habitus, cooperative - Routine HEENT Exam Head: Present: normocephalic, atraumatic Eye: Present: EOMI, PERRL ENT: Present: mucous membranes moist - Routine Respiratory Exam Present: decreased breath sounds. Absent: rales, respiratory distress, rhonchi , stridor, wheezes - Routine Cardiovascular Exam Present: RRR, no murmur - Routine Abdominal Exam Present: soft, normoactive bowel sounds, non distended, non tender - Routine Extremities Exam Present: no edema, pulses intact. Absent: cyanosis, clubbing Comments: SCD in place - Routine Musculoskeletal Exam Musculoskeletal: Present: no clubbing or cyanosis - Routine Skin Exam Present: dry, warm - Routine Neurological Exam Present: alert, CN II-XII intact, moving all extremities, vision grossly intact , hearing grossly intact, normal speech - Routine Psychiatric Exam Present: normal affect, cooperative. Absent: anxious, agitated Results - Labs CBC & Chem 7: 06/10/17 06:01 06/10/17 06:01 Microbiology Results: Microbiology 06/02/17 15:38 Peripheral/Iv Start Blood Culture - Final No Growth After 5 Days 06/02/17 15:34 Peripheral/Iv Start Blood Culture - Final No Growth After 5 Days 06/02/17 18:23 Urine, Voided (Cc/notcc) Urine Culture - Final Enterococcus faecalis Assessment and Plan (1) Pneumonia Current visit: Yes Status: Acute (2) Hypokalemia Current visit: Yes Status: Acute (3) Leukocytosis Current visit: Yes Status: Acute (4) Severe protein-calorie malnutrition Current visit: Yes Status: Acute (5) Orange toxicity Current visit: Yes Status: Resolved Assessment and Plan: Acute Medical Conditions Altered mental status, acute. - resolved Pneumonia (POA) UTI with Enterococcus faecalis (POA) Severe hypokalemia (POA) Leukocytosis (POA) - resolved Rapid weight loss with anorexia Severe protein calorie malnutrition Orange toxicity (POA) - resolved Dementia (vascular) with behavioral disturbance and increased agitation/ restlessness. Major depressive disorder. Dysphagia with declining oral intake ability. Chronic Medical Conditions CAD Hypertension Hyperlipidemia Diabetes mellitus, type II Diabetic neuropathy COPD Sleep apnea with home CPAP GERD Dysphagia Chronic pain Chronic anemia Severe depression with prior ECT treatments - 2002 History of alcohol abuse History of esophageal cancer and Philippe's esophagus Questionable history of CVA - 2003 Prior suicidal attempt - 2002 Plan Continue Ampicillin for urinary coverage, day #6. Oral drive and intake making slow gains. Sodium normalized - will stop IVF and monitor off of fluids. Bowels moving well; will stop routine Lactulose and Miralax. Encourage continued work with therapy. Recheck BMP in am due to resolving hypokalemia and hypernatremia. Will check CBC in am due to UTI/Pneumonia. Orange level tomorrow am - lithium restarted on 06/06. Case discussed with CM and patient's . Time spent with patient care 25 minutes. DVT Prophylaxis: SCD's, Lovenox Resuscitation Status: Full Code - Time spent with patient Time with patient PN: 25 minutes - Physician Narrative Physician: Madan Juárez MD Narrative: Date: 06/10/17 Time: 1120 Hospital Course Summary Disclaimer: The visit summary below is not to be considered part of the above Progress Note. Hospital Course: Plan - 06/02/17: Admit to inpatient status under the care of Dr. Juárez. Labs obtained on admission - WBC 13.7, Hgb 12.1, K 2.7. CXR revealed pneumonia - blood cultures obtained and pending; lactate 1.3. Monitor closely for signs of sepsis. Rocephin 1g IV daily and Azithromycin 500mg IV daily initiated 06/02/17 for treatment of pneumonia. Potassium boluses x 4 given - monitor electrolytes closely. Monitor cardiac function closely on telemetry. Oxygen as needed to maintain SAO2 >90%. Currently on room air. Does not use oxygen at home. DuoNeb treatments and acapella. Will obtain ABG now given increased lethargy. believes behaviors are secondary to not using his CPAP at night. Speech recommending NPO status given decreased level of consciousness and risk for aspiration. Will hold oral home medications at this time. Significant history of depression. Consider psychiatric consult once mental status improved. Ativan as needed for increased behaviors and air hunger. If mental status does not improve, consider obtaining CT head and/or MRI brain for further evaluation. Will hold lithium given toxicity. Monitor levels. Given anemia and behavior changes, will check B12 level. Will try and obtain UA sample for evaluation. Upon discharge, patient's care will be returned to his PCP, Dr. Steel. 06/03 Continue Rocephin 1g IV daily and Azithromycin 500mg IV daily for treatment of pneumonia. DuoNeb treatments and acapella. Use CPAP. Speech continues to recommend NPO status. NGT to be placed. Start tube feedings. Consult tuberculosis specialist. Accuchecks q6. Significant history of depression. Consider psychiatric consult once mental status improved. Ativan as needed for increased behaviors and air hunger. Given anemia and behavior changes, will check B12 level. Antibiotics expected to cover UTI. 06/04 Continue Rocephin 1g IV daily and Azithromycin 500mg IV daily for treatment of pneumonia. Speech continues to recommend NPO status. NGT placed and had to be replaced b/c it clogged. Enterococcus being ID'd in urine. Vancomycin x 1. Monitor. d/w Dr. Dior. He recommends enteral feedings and if patient's mental status continues to improve, he will consider further tests. x-ray shows retained barium. Add lactulose to bowel regimen. 06/05 Continue Azithromycin 500mg (day 4/5) IV daily for treatment of pneumonia. D/C Rocephin. Urine culture is positive for Enterococcus Faecalis - Will change to Ampicillin. Could change to PO Macrobid as PO intake improves. Continue with NPO therapeutic, however, patient is more alert today. We will see what speech therapy recommends. Hopeful oral drive will improve. He has been weaned off of oxygen is currently on room air. DuoNeb treatments and acapella. Use CPAP. . Questions if any cerebral event such as a stroke had caused patient's acute encephalopathy. We will obtain a CT scan of the brain to rule out intracranial bleeding or ischemia. Will consult PT and OT to evaluate patients strength. Prior to this acute illness patient was able to ambulate independently at home. We did discuss long-term plan as feels like patient will need further rehabilitation before he can come home independently. Consider IRU for aggressive rehabilitation. 06/06 Discontinue Azithromycin 500mg after today's final dose. Urine culture is positive for Enterococcus Faecalis - continue with Ampicillin. 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 Swallow abilities making slow gains with speech - in discussion with ST today, not sure if swallow ability improved to point of being able to tolerate esophagram. Would hold on IRU discharge until either patient able to maintain oral nutrition on his own, or other feeding modality achieved. Feedings currently Via NG tube - will increase rate from 20cc/hr to 30cc/hr -- goal around 60cc/hr. Hypokalemia- Given 40 MEQ now, will repeat 40 meq at 1700. Then schedule 20 Meq BID. Orange level decreased to 0.6 - can restart lithium at 300mg nightly (home dose 900mg). CT brain was negative for acute CVA. Encourage work with PT/OT for strengthening. Hopeful for IRU when medically stable. 06/07 Diet upgraded to 6 small meals of pureed with nectar thick liquid. At this point will keep tube feeding at 30ml/hr for added nutrition. Will hopefully be able to decrease tube feedings as PO drive improves. As serum sodium increase to 148, will change IVF to D5W at 40cc/hr. Continue with Ampicillin for urinary coverage. Start bladder retraining. Encourage work with PT/OT for strengthening. Hopeful for IRU when medically stable. 06/08 Strength improving, still very weak but moving more with therapy. Oral intake improving. Tolerating 6 small meals of pureed with nectar thick liquid. Speech checking on calorie count. Continue tube feeding at 30ml/hr for added nutrition. IF Feeding Tube would inadvertently be removed, would leave out at this time. Will oral intake improving, not certain if doing well enough to maintain on his own. My concern with move to IRU at this point is may not have definitive feeding route. Would not want him to decline on IRU prompting readmission. With his prior surgery, uncertain if Feeding Tube would be a viable option. NG tube would limit information obtained from esophagram. Continue with Ampicillin for urinary coverage. Additional oral potassium today at noon as potassium decreased to 3.3. Sodium with decrease to 145 - continue D5W. Will remove Burton cath. Nursing to check post void bladder scans to make sure pt emptying bladder. 06/09 NGT dc'd (became clogged and was not functioning), pt ate 50% of breakfast. Preliminary esophagram repot: No stenosis of the lower esophagus of duodenum!! Barium pass through well. Speech working to increase consistency of food. Unfortunately, with his anatomy, it does not look like feeding tube would be option. Voiding well since Burton was dc'd. K improved to 3.6, Na down to 144. Mg stable. Hgb stable at 9.2. Renal function stable. Continue D5W for now. Give extra dose of KDur since K is still low-normal. Continue Ampicillin for urinary coverage, day #5. 06/10 Continue Ampicillin for urinary coverage, day #6. Oral drive and intake making slow gains. Sodium normalized - will stop IVF and monitor off of fluids. Bowels moving well; will stop routine Lactulose and Miralax. Encourage continued work with therapy.
[2017-06-10] MEDS: GABAPENTIN 600 MG TABLET PO SCH (21:33)
[2017-06-10] MEDS: LITHIUM CITRATE PO SCH (21:33)
[2017-06-10] MEDS: ROSUVASTATIN 20 MG TABLET PO SCH (21:34)
[2017-06-10] MEDS: PRAMIPEXOLE 0.5 MG TABLET PO SCH (21:34)
[2017-06-11] MEDS: AMPICILLIN IV SCH ×4 (01:06→18:41)
[2017-06-11] MEDS: NS IV SCH ×4 (01:06→18:41)
[2017-06-11] MEDS: SALINE FLUSH 10ml SYRINGE IV PRN (01:06)
[2017-06-11] MEDS: NS FLUSH BAG 500ml IV PRN (01:07)
[2017-06-11] MEDS: ISOSORBIDE DINITRATE 10 MG TABLET PO SCH (06:18)
[2017-06-11] MEDS: ALBUTEROL/IPRATROPIUM 2.5mg-0.5mg/3ml NEB AEROSOL SCH ×4 (07:33→19:25)
[2017-06-11] MEDS: BUDESONIDE INH.SOLN 0.5mg/2ml NEB AEROSOL SCH ×3 (07:33→19:25)
[2017-06-11] MEDS: TAMSULOSIN 0.4 MG CAPSULE PO SCH (09:16)
[2017-06-11] MEDS: ENOXAPARIN 40 MG/0.4 ML INJECTION SQ SCH (09:17)
[2017-06-11] MEDS: GABAPENTIN 100 MG CAPSULE PO SCH ×2 (09:17→15:16)
[2017-06-11] MEDS: MODAFINIL 100 MG TABLET PO SCH (09:21)
[2017-06-11] MEDS: PANTOPRAZOLE 40 MG INJECTION IVP SCH (09:21)
[2017-06-11] MEDS: ASPIRIN *EC* 81 MG TABLET PO SCH (09:25)
[2017-06-11] MEDS ORDERED: BISACODYL 10 MG SUPPOSITORY RECTALLY PRN (10:48)
[2017-06-11] MEDS ORDERED: NS 1,000 ML IV SCH (14:00)
--- NOTE | 2017-06-11 14:00 | Progress Note ---
- Date 06/11/17 Subjective: Chris is seen today in follow up. He is alert, feeling better. reports concerns that his "ice and water were taken away." I d/w RN- that is not the case. Patient was just encouraged to request them when he was ready. Chart is reviewed, thickened liquids, but ok for ice and sips of water. No other acute c/o reported. Objective Vital signs: Temperature 97.3 F 06/11/17 11:30 Pulse Rate 82 06/11/17 11:30 Respiratory Rate 16 06/11/17 11:30 Blood Pressure 103/62 06/11/17 11:30 Pulse Oximetry 91 06/11/17 11:30 Height/Weight/BMI: Height 1.63 m Weight 67 kg Body Mass Index 25.0 - Constitutional Present: no acute distress, average body habitus, cooperative - Routine HEENT Exam Head: Present: normocephalic, atraumatic Eye: Present: EOMI, PERRL ENT: Present: mucous membranes dry - Routine Respiratory Exam Present: CTA bilaterally. Absent: rales, rhonchi, crackles - Routine Cardiovascular Exam Present: RRR, S1, S2 - Routine Abdominal Exam Present: soft, normoactive bowel sounds, non distended, non tender - Routine Extremities Exam Present: no edema, non tender - Routine Musculoskeletal Exam Musculoskeletal: Present: normal strength, moving extremities well - Routine Skin Exam Present: intact, dry, warm - Routine Neurological Exam Present: alert, moving all extremities - Routine Psychiatric Exam Present: cooperative Results - Labs CBC & Chem 7: 06/11/17 04:49 06/11/17 04:49 Microbiology Results: Microbiology 06/02/17 15:38 Peripheral/Iv Start Blood Culture - Final No Growth After 5 Days 06/02/17 15:34 Peripheral/Iv Start Blood Culture - Final No Growth After 5 Days 06/02/17 18:23 Urine, Voided (Cc/notcc) Urine Culture - Final Enterococcus faecalis Assessment and Plan (1) Pneumonia Current visit: Yes Status: Acute (2) UTI (urinary tract infection) due to Enterococcus Current visit: Yes Status: Acute (3) Hypokalemia Current visit: Yes Status: Acute (4) Leukocytosis Current visit: Yes Status: Acute (5) Severe protein-calorie malnutrition Current visit: Yes Status: Acute (6) [place] toxicity Current visit: Yes Status: Resolved Assessment and Plan: Acute Medical Conditions Altered mental status, acute. - resolved Pneumonia (POA) UTI with Enterococcus faecalis (POA) Severe hypokalemia (POA) Leukocytosis (POA) - resolved Rapid weight loss with anorexia Severe protein calorie malnutrition [place] toxicity (POA) - resolved Dementia (vascular) with behavioral disturbance and increased agitation/ restlessness Major depressive disorder Dysphagia with declining oral intake ability Chronic Medical Conditions CAD Hypertension Hyperlipidemia Diabetes mellitus, type II Diabetic neuropathy COPD Sleep apnea with home CPAP GERD Dysphagia Chronic pain Chronic anemia Severe depression with prior ECT treatments - 2002 History of alcohol abuse History of esophageal cancer and Philippe's esophagus Questionable history of CVA - 2003 Prior suicidal attempt - 2002 Plan Continue Ampicillin for urinary coverage, day #7. Oral drive and intake making slow gains. Sodium trending up a bit- suspect that thickened liquids are a factor. Will give one liter of fluid. Bowels moving well; will stop routine Lactulose and Miralax. Encourage continued work with therapy. Recheck BMP in am due to resolving hypokalemia and hypernatremia. Will check CBC in am due to UTI/Pneumonia. [place] level low- dose adjusted up by Dr. Juárez. Continue monitoring. Slow improvement. WBC up a bit, but afebrile. Continue to monitor for now. DVT Prophylaxis: Lovenox GI Prophylaxis: Protonix Resuscitation Status: Full Code - Time spent with patient Time with patient PN: 25 minutes - Physician Narrative Physician: Madan Juárez MD Narrative: Date: 06/11/17 Time: 1530 Have independently interviewed and examined pt. Chart reviewed. Case discussed with my PLASTIC EXTRUSION OPERATOR. Care plan developed with my supervision; agree with above. Doing okay. Taking oral in, but nothing tastes good and not feeling that hungry. Working on smaller/frequent meals. Breathing well. Strength fair. Lungs: decreased, no distress CV: regular AB; soft nt MSE: awake alert Plan: Increase lithium to 450mg as level low--possible need to increase further , but need to be cautious with increasing due to lithium toxicity at admit. Encourage oral intake and ambulation. Will continue with ampicillin. Hope for discharge in the upcoming days if swallow function and caloric intake are doing well. CM to help with discharge disposition. Will recheck Prealbumin in am to reassess nutritional status. Hospital Course Summary Disclaimer: The visit summary below is not to be considered part of the above Progress Note. Hospital Course: Plan - 06/02/17: Admit to inpatient status under the care of Dr. Juárez. Labs obtained on admission - WBC 13.7, Hgb 12.1, K 2.7. CXR revealed pneumonia - blood cultures obtained and pending; lactate 1.3. Monitor closely for signs of sepsis. Rocephin 1g IV daily and Azithromycin 500mg IV daily initiated 06/02/17 for treatment of pneumonia. Potassium boluses x 4 given - monitor electrolytes closely. Monitor cardiac function closely on telemetry. Oxygen as needed to maintain SAO2 >90%. Currently on room air. Does not use oxygen at home. DuoNeb treatments and acapella. Will obtain ABG now given increased lethargy. believes behaviors are secondary to not using his CPAP at night. Speech recommending NPO status given decreased level of consciousness and risk for aspiration. Will hold oral home medications at this time. Significant history of depression. Consider psychiatric consult once mental status improved. Ativan as needed for increased behaviors and air hunger. If mental status does not improve, consider obtaining CT head and/or MRI brain for further evaluation. Will hold lithium given toxicity. Monitor levels. Given anemia and behavior changes, will check B12 level. Will try and obtain UA sample for evaluation. Upon discharge, patient's care will be returned to his PCP, Dr. Steel. 06/03 Continue Rocephin 1g IV daily and Azithromycin 500mg IV daily for treatment of pneumonia. DuoNeb treatments and acapella. Use CPAP. Speech continues to recommend NPO status. NGT to be placed. Start tube feedings. 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 Accuchecks q6. Significant history of depression. Consider psychiatric consult once mental status improved. Ativan as needed for increased behaviors and air hunger. Given anemia and behavior changes, will check B12 level. Antibiotics expected to cover UTI. 06/04 Continue Rocephin 1g IV daily and Azithromycin 500mg IV daily for treatment of pneumonia. Speech continues to recommend NPO status. NGT placed and had to be replaced b/c it clogged. Enterococcus being ID'd in urine. Vancomycin x 1. Monitor. d/w Dr. Dior. He recommends enteral feedings and if patient's mental status continues to improve, he will consider further tests. x-ray shows retained barium. Add lactulose to bowel regimen. 06/05 Continue Azithromycin 500mg (day 4/5) IV daily for treatment of pneumonia. D/C Rocephin. Urine culture is positive for Enterococcus Faecalis - Will change to Ampicillin. Could change to PO Macrobid as PO intake improves. Continue with NPO therapeutic, however, patient is more alert today. We will see what speech therapy recommends. Hopeful oral drive will improve. He has been weaned off of oxygen is currently on room air. DuoNeb treatments and acapella. Use CPAP. . Questions if any cerebral event such as a stroke had caused patient's acute encephalopathy. We will obtain a CT scan of the brain to rule out intracranial bleeding or ischemia. Will consult PT and OT to evaluate patients strength. Prior to this acute illness patient was able to ambulate independently at home. We did discuss long-term plan as feels like patient will need further rehabilitation before he can come home independently. Consider IRU for aggressive rehabilitation. 06/06 Discontinue Azithromycin 500mg after today's final dose. Urine culture is positive for Enterococcus Faecalis - continue with Ampicillin. 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 Swallow abilities making slow gains with speech - in discussion with ST today, not sure if swallow ability improved to point of being able to tolerate esophagram. Would hold on IRU discharge until either patient able to maintain oral nutrition on his own, or other feeding modality achieved. Feedings currently Via NG tube - will increase rate from 20cc/hr to 30cc/hr -- goal around 60cc/hr. Hypokalemia- Given 40 MEQ now, will repeat 40 meq at 1700. Then schedule 20 Meq BID. [place] level decreased to 0.6 - can restart lithium at 300mg nightly (home dose 900mg). CT brain was negative for acute CVA. Encourage work with PT/OT for strengthening. Hopeful for IRU when medically stable. 06/07 Diet upgraded to 6 small meals of pureed with nectar thick liquid. At this point will keep tube feeding at 30ml/hr for added nutrition. Will hopefully be able to decrease tube feedings as PO drive improves. As serum sodium increase to 148, will change IVF to D5W at 40cc/hr. Continue with Ampicillin for urinary coverage. Start bladder retraining. Encourage work with PT/OT for strengthening. Hopeful for IRU when medically stable. 06/08 Strength improving, still very weak but moving more with therapy. Oral intake improving. Tolerating 6 small meals of pureed with nectar thick liquid. Speech checking on calorie count. Continue tube feeding at 30ml/hr for added nutrition. IF Feeding Tube would inadvertently be removed, would leave out at this time. Will oral intake improving, not certain if doing well enough to maintain on his own. My concern with move to IRU at this point is may not have definitive feeding route. Would not want him to decline on IRU prompting readmission. With his prior surgery, uncertain if Feeding Tube would be a viable option. NG tube would limit information obtained from esophagram. Continue with Ampicillin for urinary coverage. Additional oral potassium today at noon as potassium decreased to 3.3. Sodium with decrease to 145 - continue D5W. Will remove Burton cath. Nursing to check post void bladder scans to make sure pt emptying bladder. 06/09 NGT dc'd (became clogged and was not functioning), pt ate 50% of breakfast. Preliminary esophagram repot: No stenosis of the lower esophagus of duodenum!! Barium pass through well. Speech working to increase consistency of food. Unfortunately, with his anatomy, it does not look like feeding tube would be option. Voiding well since Burton was dc'd. K improved to 3.6, Na down to 144. Mg stable. Hgb stable at 9.2. Renal function stable. Continue D5W for now. Give extra dose of KDur since K is still low-normal. Continue Ampicillin for urinary coverage, day #5. 06/10 Continue Ampicillin for urinary coverage, day #6. Oral drive and intake making slow gains. Sodium normalized - will stop IVF and monitor off of fluids. Bowels moving well; will stop routine Lactulose and Miralax. Encourage continued work with therapy. 06/11/17 Continue Ampicillin for urinary coverage, day #7. Oral drive and intake making slow gains. Sodium trending up a bit- suspect that thickened liquids are a factor. Will give one liter of fluid. Potassium level staying consistently normal - will decrease to 20mEq once a day. Encourage continued work with therapy. [place] level low - will increase lithium to 450mg at night (home dose 900mg) WBC up a bit to 11.7, but afebrile. Continue to monitor for now.
[2017-06-11] MEDS: LATANOPROST 0.005% EYE DROPS 2.5ml EACH EYE SCH (21:18)
[2017-06-11] MEDS: ROSUVASTATIN 20 MG TABLET PO SCH (21:19)
[2017-06-11] MEDS: GABAPENTIN 600 MG TABLET PO SCH (21:19)
[2017-06-11] MEDS: PRAMIPEXOLE 0.5 MG TABLET PO SCH (21:19)
[2017-06-11] MEDS: LITHIUM CITRATE PO SCH (21:19)
[2017-06-12] MEDS: NS IV SCH ×4 (00:34→19:52)
[2017-06-12] MEDS: AMPICILLIN IV SCH ×4 (00:34→19:52)
[2017-06-12] MEDS: PANTOPRAZOLE 40 MG TABLET PO SCH (06:34)
[2017-06-12] MEDS: ISOSORBIDE DINITRATE 10 MG TABLET PO SCH (06:34)
[2017-06-12] MEDS: BUDESONIDE INH.SOLN 0.5mg/2ml NEB AEROSOL SCH ×2 (06:55→19:10)
[2017-06-12] MEDS: ALBUTEROL/IPRATROPIUM 2.5mg-0.5mg/3ml NEB AEROSOL SCH ×4 (06:55→19:10)
[2017-06-12] MEDS: ASPIRIN *EC* 81 MG TABLET PO SCH (09:13)
[2017-06-12] MEDS: GABAPENTIN 100 MG CAPSULE PO SCH ×2 (09:13→16:11)
[2017-06-12] MEDS: MODAFINIL 100 MG TABLET PO SCH (09:14)
[2017-06-12] MEDS: ENOXAPARIN 40 MG/0.4 ML INJECTION SQ SCH (09:14)
[2017-06-12] MEDS: TAMSULOSIN 0.4 MG CAPSULE PO SCH (09:15)
[2017-06-12] MEDS ORDERED: FALL RISK - PHARMACY CONSULT MC ONE (11:55)
--- NOTE | 2017-06-12 12:19 | XRay Report ---
INDICATION: F/U infiltrate PROCEDURE: CHEST 2-VIEWS UPRIGHT (PA & LAT) Encounter: Initial COMPARISON: June 04, 2017 FINDINGS: Right lower lobe airspace consolidation has improved, however there is still significant consolidation in the posterior lower lobes on the lateral view. There is continued interstitial prominence in both mid to lower lung guerra. No pneumothorax. Small pleural effusions. No pneumothorax. Heart size and mediastinal contours are stable. Contrast material in the colon. Impression: Improving basilar pneumonia or aspiration. .
--- NOTE | 2017-06-12 14:56 | Progress Note ---
- Date 06/12/17 Subjective: The patient was admitted for dehydration, 30 pound weight loss, poor by mouth intake and altered mental status with lithium toxicity. He had undergone surgery 4-6 weeks ago for hiatal hernia with bowel in the chest. He had had a remote history of esophagectomy for esophageal cancer. The patient was seen this afternoon in his room. At the time I came to see him, a family meeting had been planned with his and his 's parents and his 's sister. Also present was his residential case manager Aftab, speech therapist, and residential case manager from inpatient rehabilitation. The reason for the family meeting was to discuss his hospital course, current findings and to make plans for dismissal. Currently, he is doing much better. He was able to walk 600 feet with his walker and standby assist today with physical therapy and therefore is doing "too well" to qualify for inpatient rehabilitation. Per speech therapy, his diet has been increased to soft diet with chopped meats and thin liquids. He is not on any carb or any other type of restrictions at this time. Plans are for supplements if he is not eating a full meal. The patient states that he is feeling better. He denies any pain anywhere. He denies any shortness of breath. He has minimal cough. He feels like he is swallowing better. He feels like his memory is better and his states he is much better than when he was admitted but is still not quite 100%. He does have some underlying dementia but is not back to baseline. He is having normal bowel movements. On admission he had UTI with enterococcus and a Burton was placed. His Burton is now out and he states he is urinating without difficulties. Objective Vital signs: Temperature 97.2 F 06/12/17 11:25 Pulse Rate 70 06/12/17 11:25 Respiratory Rate 16 06/12/17 11:25 Blood Pressure 102/61 06/12/17 11:25 Pulse Oximetry 96 06/12/17 11:25 Height/Weight/BMI: Height 1.63 m Weight 68.1 kg Body Mass Index 25.0 Comments: Afebrile, blood pressure 102/61, O2 sat 96% on 1 L and currently he is on room air. He has been using BiPAP at night. Heart rate is 70. Respirations 16 Weight today is 68.1 kg Weight on admission was 62.8 kg GEN-alert, oriented to [facility], [place],. He knew he had been in the hospital 8 or 9 days. HEENT-sclera anicteric, pupils equal, oropharynx is moist NECK-supple CV-regular rate and rhythm CHEST-increased breath sounds in the bases, otherwise clear ABD-soft, nontender with positive bowel sounds -no Burton EXT-no edema NEURO-no focal deficits SKIN-warm and dry and without rashes Results - Labs CBC & Chem 7: 06/12/17 04:25 06/12/17 04:25 Labs: Mantoloking on admission was 3.1. Mantoloking was held until yesterday when lithium level was 0.4. White count today is normal at 7.7. Hemoglobin 8.3. Platelets 316. Neutrophils 74%. Prealbumin is 8.6 up from 5.3. Albumin is 2.6. Microbiology Results: Microbiology 06/02/17 15:38 Peripheral/Iv Start Blood Culture - Final No Growth After 5 Days 06/02/17 15:34 Peripheral/Iv Start Blood Culture - Final No Growth After 5 Days 06/02/17 18:23 Urine, Voided (Cc/notcc) Urine Culture - Final Enterococcus faecalis - Impressions Chest x-ray reveals improving basilar pneumonia Assessment and Plan (1) Pneumonia Current visit: Yes Status: Acute (2) Hypokalemia Current visit: Yes Status: Acute (3) Leukocytosis Current visit: Yes Status: Acute (4) Severe protein-calorie malnutrition Current visit: Yes Status: Acute (5) Mantoloking toxicity Current visit: Yes Status: Resolved (6) UTI (urinary tract infection) due to Enterococcus Current visit: Yes Status: Acute Assessment and Plan: Acute Medical Conditions Altered mental status, acute. -Markedly improved per . Not quite back to normal at this time Aspiration Pneumonia (POA) -improved UTI with Enterococcus faecalis (POA) Severe hypokalemia (POA) -resolved Leukocytosis (POA) - resolved Rapid weight loss with anorexia -improving Severe protein calorie malnutrition -improving Mantoloking toxicity (POA) - resolved Dementia (vascular) with behavioral disturbance and increased agitation/ restlessness Major depressive disorder Dysphagia with declining oral intake ability Chronic Medical Conditions CAD Hypertension Hyperlipidemia Diabetes mellitus, type II Diabetic neuropathy COPD Sleep apnea with home CPAP GERD Dysphagia Chronic pain Chronic anemia Severe depression with prior ECT treatments - 2002 History of alcohol abuse History of esophageal cancer and Philippe's esophagus Questionable history of CVA - 2003 Prior suicidal attempt - 2002 Plan We did have a family meeting with the patient, his , his 's parents and his 's sister. Also present was the patient's residential case manager, inpatient rehabilitation residential case manager, and speech therapy. Overall the patient has made good gains. His encephalopathy has almost completely resolved. When he came in he had lithium toxicity likely secondary to dehydration. Mantoloking was resumed yesterday at 450 mg down from his usual 900 mg area per his he had not had a recent change in his lithium dosage. Will consult Dr. Pizarro for help with appropriate lithium dosage. The patient's swallowing has markedly improved. He was advanced to soft diet with chopped meats and regular liquids today. He was able to eat 75% of breakfast today, 10% of supper yesterday and 100% of lunch yesterday. He states his appetite is better now that he is on real food. The patient is using BiPAP. The hospital. He previously had a home CPAP and sees Dr. Pablo. He has not been tolerating his home CPAP since surgery 4-[address] Pablo, he will see the patient and help determine best course of action at this time. Continue with physical therapy, occupational therapy and speech therapy here in the hospital. Monitor calorie and fluid intake. When he is able to eat and drink well enough to maintain hydration and adequate calories, can consider discharge. We did discuss discharge plans at length during the family meeting. At this time, since the patient is doing "too well" to qualify for inpatient rehabilitation, will likely plan for fpc at discharge for continued therapies and to make sure he continues to do well with intake. Possible discharge around 06/14/2017. Check CBC and basic metabolic profile tomorrow. DVT Prophylaxis: Lovenox GI Prophylaxis: Protonix Resuscitation Status: Full Code - Time spent with patient Time with patient PN: 35 minutes - Physician Narrative Physician: Corazon Walker MD Narrative: Date: 06/12/17 Time: 1450 Hospital Course Summary Disclaimer: The visit summary below is not to be considered part of the above Progress Note. Hospital Course: Plan - 06/02/17: Admit to inpatient status under the care of Dr. Juárez. Labs obtained on admission - WBC 13.7, Hgb 12.1, K 2.7. CXR revealed pneumonia - blood cultures obtained and pending; lactate 1.3. Monitor closely for signs of sepsis. Rocephin 1g IV daily and Azithromycin 500mg IV daily initiated 06/02/17 for treatment of pneumonia. Potassium boluses x 4 given - monitor electrolytes closely. Monitor cardiac function closely on telemetry. Oxygen as needed to maintain SAO2 >90%. Currently on room air. Does not use oxygen at home. DuoNeb treatments and acapella. Will obtain ABG now given increased lethargy. believes behaviors are secondary to not using his CPAP at night. Speech recommending NPO status given decreased level of consciousness and risk for aspiration. Will hold oral home medications at this time. Significant history of depression. Consider psychiatric consult once mental status improved. Ativan as needed for increased behaviors and air hunger. If mental status does not improve, consider obtaining CT head and/or MRI brain for further evaluation. Will hold lithium given toxicity. Monitor levels. Given anemia and behavior changes, will check B12 level. Will try and obtain UA sample for evaluation. Upon discharge, patient's care will be returned to his PCP, Dr. Steel. 06/03 Continue Rocephin 1g IV daily and Azithromycin 500mg IV daily for treatment of pneumonia. DuoNeb treatments and acapella. Use CPAP. Speech continues to recommend NPO status. NGT to be placed. Start tube feedings. Consult water sander. Accuchecks q6. Significant history of depression. Consider psychiatric consult once mental status improved. Ativan as needed for increased behaviors and air hunger. Given anemia and behavior changes, will check B12 level. Antibiotics expected to cover UTI. 06/04 Continue Rocephin 1g IV daily and Azithromycin 500mg IV daily for treatment of pneumonia. Speech continues to recommend NPO status. NGT placed and had to be replaced b/c it clogged. Enterococcus being ID'd in urine. Vancomycin x 1. Monitor. d/w Dr. Dior. He recommends enteral feedings and if patient's mental status continues to improve, he will consider further tests. x-ray shows retained barium. Add lactulose to bowel regimen. 06/05 Continue Azithromycin 500mg (day 4/5) IV daily for treatment of pneumonia. D/C Rocephin. Urine culture is positive for Enterococcus Faecalis - Will change to Ampicillin. Could change to PO Macrobid as PO intake improves. Continue with NPO therapeutic, however, patient is more alert today. We will see what speech therapy recommends. Hopeful oral drive will improve. He has been weaned off of oxygen is currently on room air. DuoNeb treatments and acapella. Use CPAP. . Questions if any cerebral event such as a stroke had caused patient's acute encephalopathy. We will obtain a CT scan of the brain to rule out intracranial bleeding or ischemia. Will consult PT and OT to evaluate patients strength. Prior to this acute illness patient was able to ambulate independently at home. We did discuss long-term plan as feels like patient will need further rehabilitation before he can come home independently. Consider IRU for aggressive rehabilitation. 06/06 Discontinue Azithromycin 500mg after today's final dose. Urine culture is positive for Enterococcus Faecalis - continue with Ampicillin. 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 Swallow abilities making slow gains with speech - in discussion with ST today, not sure if swallow ability improved to point of being able to tolerate esophagram. Would hold on IRU discharge until either patient able to maintain oral nutrition on his own, or other feeding modality achieved. Feedings currently Via NG tube - will increase rate from 20cc/hr to 30cc/hr -- goal around 60cc/hr. Hypokalemia- Given 40 MEQ now, will repeat 40 meq at 1700. Then schedule 20 Meq BID. Mantoloking level decreased to 0.6 - can restart lithium at 300mg nightly (home dose 900mg). CT brain was negative for acute CVA. Encourage work with PT/OT for strengthening. Hopeful for IRU when medically stable. 06/07 Diet upgraded to 6 small meals of pureed with nectar thick liquid. At this point will keep tube feeding at 30ml/hr for added nutrition. Will hopefully be able to decrease tube feedings as PO drive improves. As serum sodium increase to 148, will change IVF to D5W at 40cc/hr. Continue with Ampicillin for urinary coverage. Start bladder retraining. Encourage work with PT/OT for strengthening. Hopeful for IRU when medically stable. 06/08 Strength improving, still very weak but moving more with therapy. Oral intake improving. Tolerating 6 small meals of pureed with nectar thick liquid. Speech checking on calorie count. Continue tube feeding at 30ml/hr for added nutrition. IF Feeding Tube would inadvertently be removed, would leave out at this time. Will oral intake improving, not certain if doing well enough to maintain on his own. My concern with move to IRU at this point is may not have definitive feeding route. Would not want him to decline on IRU prompting readmission. With his prior surgery, uncertain if Feeding Tube would be a viable option. NG tube would limit information obtained from esophagram. Continue with Ampicillin for urinary coverage. Additional oral potassium today at noon as potassium decreased to 3.3. Sodium with decrease to 145 - continue D5W. Will remove Burton cath. Nursing to check post void bladder scans to make sure pt emptying bladder. 06/09 NGT dc'd (became clogged and was not functioning), pt ate 50% of breakfast. Preliminary esophagram repot: No stenosis of the lower esophagus of duodenum!! Barium pass through well. Speech working to increase consistency of food. Unfortunately, with his anatomy, it does not look like feeding tube would be option. Voiding well since Burton was dc'd. K improved to 3.6, Na down to 144. Mg stable. Hgb stable at 9.2. Renal function stable. Continue D5W for now. Give extra dose of KDur since K is still low-normal. Continue Ampicillin for urinary coverage, day #5. 06/10 Continue Ampicillin for urinary coverage, day #6. Oral drive and intake making slow gains. Sodium normalized - will stop IVF and monitor off of fluids. Bowels moving well; will stop routine Lactulose and Miralax. Encourage continued work with therapy. 06/11/17 Continue Ampicillin for urinary coverage, day #7. Oral drive and intake making slow gains. Sodium trending up a bit- suspect that thickened liquids are a factor. Will give one liter of fluid. Potassium level staying consistently normal - will decrease to 20mEq once a day. Encourage continued work with therapy. Mantoloking level low - will increase lithium to 450mg at night (home dose 900mg) WBC up a bit to 11.7, but afebrile. Continue to monitor for now.
[2017-06-12 16:55] VITALS: BMI 25.7
[2017-06-12] MEDS: SALINE FLUSH 10ml SYRINGE IV PRN (19:52)
[2017-06-12] MEDS: ROSUVASTATIN 20 MG TABLET PO SCH (20:03)
[2017-06-12] MEDS: GABAPENTIN 600 MG TABLET PO SCH (20:03)
[2017-06-12] MEDS: LATANOPROST 0.005% EYE DROPS 2.5ml EACH EYE SCH (20:03)
[2017-06-12] MEDS: PRAMIPEXOLE 0.5 MG TABLET PO SCH (20:03)
[2017-06-12] MEDS: LITHIUM CITRATE PO SCH (20:03)
[2017-06-13] MEDS: AMPICILLIN IV SCH ×3 (00:25→14:47)
[2017-06-13] MEDS: NS IV SCH ×3 (00:25→14:47)
[2017-06-13] MEDS: NS FLUSH BAG 500ml IV PRN (00:27)
[2017-06-13] MEDS: PANTOPRAZOLE 40 MG TABLET PO SCH (06:01)
[2017-06-13] MEDS: ISOSORBIDE DINITRATE 10 MG TABLET PO SCH (06:02)
[2017-06-13] MEDS: SALINE FLUSH 10ml SYRINGE IV PRN ×2 (06:05→14:47)
[2017-06-13] MEDS: ALBUTEROL/IPRATROPIUM 2.5mg-0.5mg/3ml NEB AEROSOL SCH ×4 (07:35→18:54)
[2017-06-13] MEDS: BUDESONIDE INH.SOLN 0.5mg/2ml NEB AEROSOL SCH ×2 (07:35→18:54)
[2017-06-13] MEDS: MODAFINIL 100 MG TABLET PO SCH (10:08)
[2017-06-13] MEDS: GABAPENTIN 100 MG CAPSULE PO SCH ×2 (10:08→18:09)
[2017-06-13] MEDS: ENOXAPARIN 40 MG/0.4 ML INJECTION SQ SCH (10:08)
[2017-06-13] MEDS: ASPIRIN *EC* 81 MG TABLET PO SCH (10:09)
[2017-06-13] MEDS: TAMSULOSIN 0.4 MG CAPSULE PO SCH (10:10)
--- NOTE | 2017-06-13 12:45 | Pulmonology Consult Note ---
History of Present Illness Consult date: 06/13/17 Requesting physician: Corazon Walker Reason for consult: obstructive sleep apnea Chief complaint: pneumonia History of present illness: This is a patient with multiple health problems. He is a patient of Dr Steel and is known to have recurrent aspiration pneumonias, post op esophagectomy for esophageal CA, COPD, Obstructive sleep apnea. He also was told by the doctors in [place] that he has bronchiectasis. He was placed on hypertonic saline nebs as well. He quit smoking 23 years ago.He has ANGELA and wears CPAP 10 at night. He has a Respironics Dreamstation at home. At times he has been non-compliant with that, for unclear reasons. 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 He has history of copd. He saw her in October and he was placed back on Augmentin, neb treatments. He was still not showing symptoms. She mentioned doing a bronchoscopy at that time. She recommended that he go back to [place] for that procedure. He has been back to [place] and did have that procedure done. The results seem to be that he is having recurrent aspiration causing cough, bronchiectasis and recurrent pneumonias. I was asked to revisit the patient's pulmonary problems, including his ANGELA, and make further recommendations. Review of Systems All systems: reviewed and no additional remarkable complaints except as stated - Constitutional Constitutional: Present: as per HPI - EENT Eyes: Absent: blurry vision Nose: Absent: obstruction Mouth/Throat: Present: mucosa moist - Cardiovascular Cardiovascular: Absent: chest pain - Respiratory Respiratory: Present: as per HPI, cough, excessive phlegm production - Gastrointestinal Gastrointestinal: Absent: abdominal pain - Neurological Neurological: Present: memory loss - Hematologic/Lymphatic Hematologic/Lymphatic: Absent: easy bleeding - Allergic/Immunologic Allergic/Immunologic: Absent: throat swelling [facility] Patient Stated Medical History Cerebrovascular Accident Yes Dementia Yes Peripheral Neuropathy Yes: legs Dental Problems Yes: dentures doesnt wear Dysphagia Yes Glaucoma Yes Hearing Loss Yes: no hearing aides Coronary Artery Disease Yes Myocardial Infarction Yes Chronic Obstructive Pulmonary Yes Disease (COPD) Pneumonia Yes Sleep Apnea Yes: uses c pap Diabetes Mellitus Type 2 Yes Cirrhosis Yes Gastroesophageal Reflux Yes Disease Hiatal Hernia Yes Clotting Problems Yes: unknown had been on plavix Blood Transfusions Yes Depression Yes Medical History Updates: CAD. Hypertension. Hyperlipidemia. Dibetes mellitus , type II. Diabetic neuropathy. COPD. Sleep apnea with home CPAP. Vascular dementia. GERD. Dysphagia. Chronic pain. Chronic anemia. Severe depression with prior ECT treatments - 2002. History of alcohol abuse. History of esophageal cancer and Philippe's esophagus. Questionable history of CVA - 2003. Prior suicidial attempt - 2002. Surgical History: Major hiatal hernia repair - removing abdomonal structures from thoracic cavity - 04/26/2017 (Dr. Eleanor Powell). Esophagectomy - 1991 (Dr. Eleanor Powell). Appendectomy. - Social History Smoking status: Former smoker (quit 1991) Substance use type: former substance user (marijuana and cociane) Alcohol intake frequency: former alcohol drinker (quit 2002) Housing: house Household members: spouse Current occupational status: retired Current residence: Apartment/Private Home Medications Home Medications Medication Instructions Recorded Confirmed Type Albuterol Sulfate [Proair Hfa] 2 puff INH Q4H PRN 06/02/17 06/02/17 History Aspirin [Adult Aspirin Regimen] 81 mg PO DAILY 06/02/17 06/02/17 History Fluticasone/Salmeterol 250/50 1 puff INH BID 06/02/17 06/02/17 History [Advair 250-50 Diskus] Gabapentin [Neurontin] 1,200 mg PO HS 06/02/17 06/02/17 History Gabapentin [Neurontin] 200 mg PO BID 06/02/17 06/02/17 History Isosorbide Mononitrate ER [Imdur] 30 mg PO DAILY 06/02/17 06/02/17 History Lactobacillus [Culturelle] 1 cap PO DAILY 06/02/17 06/02/17 History Latanoprost [Latanoprost] 1 drop EACH EYE HS 06/02/17 06/02/17 History Scanlon Carbonate [Scanlon 900 mg PO HS 06/02/17 06/02/17 History Carbonate] Modafinil [Provigil] 200 mg PO DAILY 06/02/17 06/02/17 History Multivitamin [One Daily] 1 each PO DAILY 06/02/17 06/02/17 History Nitroglycerin 0.4 mg SL Q5M PRN 06/02/17 06/02/17 History Pantoprazole Tab [Protonix Tab] 1 tab PO ACB 06/02/17 06/02/17 History Pramipexole Di-HCl [Mirapex] 0.5 mg PO HS 06/02/17 06/02/17 History Ranitidine [Zantac] 150 mg PO DAILY 06/02/17 06/02/17 History Rosuvastatin Calcium [Crestor] 40 mg PO HS 06/02/17 06/02/17 History Tamsulosin [Flomax] 0.4 mg PO DAILY 06/02/17 06/02/17 History Tramadol/APAP 37.5/325 [Ultracet] 1 tab PO Q8H PRN 06/02/17 06/02/17 History Venlafaxine XR [Effexor Xr] 450 mg PO DAILY 06/02/17 06/02/17 History Allergies Allergy/AdvReac Type Severity Reaction Status Date / Time No Known Allergies Allergy Verified 06/02/17 12:13 Exam Vital signs: Temperature 97.1 F 06/13/17 07:34 Pulse Rate 95 06/13/17 11:00 Respiratory Rate 16 06/13/17 11:00 Blood Pressure 113/67 06/13/17 11:00 Pulse Oximetry 95 06/13/17 11:00 - Constitutional no acute distress - Routine HEENT Exam Head: Present: normocephalic, atraumatic Eye: Present: EOMI ENT: Present: mucous membranes moist - Routine Neck Exam Present: supple - Routine Chest/Breast/Axilla Exam Chest wall: Absent: tenderness - Routine Respiratory Exam Present: decreased breath sounds. Absent: wheezes - Routine Cardiovascular Exam Present: RRR. Absent: murmur - Routine Abdominal Exam Present: soft. Absent: guarding - Routine Extremities Exam Absent: cyanosis, clubbing, edema - Routine Skin Exam Present: intact. Absent: lesions, rash - Routine Neurological Exam Present: alert. Absent: motor deficit Results - Laboratory Findings CBC and BMP: 06/13/17 04:57 06/13/17 04:57 ABG ABG pH 7.432 (7.350-7.450) 06/02/17 17:07 ABG pCO2 44 MMHG (34.0-45.0) 06/02/17 17:07 ABG pO2 58.2 MMHG (80.0-100.0) L 06/02/17 17:07 ABG O2 Saturation 90.4 % (95.0-98.0) L 06/02/17 17:07 Abnormal lab findings: Abnormal Labs 06/02/17 06/02/17 06/02/17 11:40 11:40 17:07 WBC 13.7 H RBC 4.28 L Hgb 12.1 L Hct 36.8 L MCHC Immature Gran % (Auto) 0.7 H Neut % (Auto) 84.2 H Lymph % (Auto) 7.6 L [place] % (Auto) Eos % (Auto) Neut # (Auto) 11.5 H Lymph # (Auto) Abs Immat Gran (auto) 0.09 H Neutrophils % (Manual) Band Neutrophils % Lymphocytes % (Manual) Neutrophils # (Manual) Lymphocytes # (Manual) ABG pO2 58.2 L ABG HCO3 29.3 H ABG Total CO2 30.7 H ABG O2 Saturation 90.4 L ABG Base Excess 4.4 H Sodium Potassium 2.7 L* Chloride 95 L Carbon Dioxide 31 H BUN Creatinine BUN/Creatinine Ratio Glucose Calculated Osmolality Calcium Alkaline Phosphatase 384 H Total Protein Albumin Albumin/Globulin Ratio 1.0 L Prealbumin 5.3 L Specimen Hemolysis Urine Protein Urine Bilirubin Ur Leukocyte Esterase Urine WBC Urine Bacteria Scanlon 3.1 H* 06/02/17 06/03/17 06/03/17 18:23 04:55 04:55 WBC 13.9 H RBC 3.87 L Hgb 10.9 L Hct 34.3 L MCHC Immature Gran % (Auto) Neut % (Auto) Lymph % (Auto) [place] % (Auto) Eos % (Auto) Neut # (Auto) Lymph # (Auto) Abs Immat Gran (auto) Neutrophils % (Manual) 86.0 H Band Neutrophils % 7.0 H Lymphocytes % (Manual) 3.0 L Neutrophils # (Manual) 12.0 H Lymphocytes # (Manual) 0.4 L ABG pO2 ABG HCO3 ABG Total CO2 ABG O2 Saturation ABG Base Excess Sodium Potassium 3.1 L Chloride Carbon Dioxide BUN Creatinine BUN/Creatinine Ratio Glucose Calculated Osmolality Calcium Alkaline Phosphatase Total Protein Albumin Albumin/Globulin Ratio Prealbumin Specimen Hemolysis Urine Protein Trace A Urine Bilirubin 1+ A Ur Leukocyte Esterase 2+ A Urine WBC 30-50 H Urine Bacteria 2+ H Scanlon 06/04/17 06/04/17 06/05/17 04:33 04:33 04:54 WBC RBC 3.41 L 3.39 L Hgb 9.5 L D 9.5 L Hct 30.3 L D 29.5 L MCHC Immature Gran % (Auto) 1.7 H Neut % (Auto) 67.2 H 74.7 H Lymph % (Auto) 18.1 L 14.5 L [place] % (Auto) 11.2 H 9.7 H Eos % (Auto) Neut # (Auto) Lymph # (Auto) 0.9 L Abs Immat Gran (auto) 0.12 H Neutrophils % (Manual) Band Neutrophils % Lymphocytes % (Manual) Neutrophils # (Manual) Lymphocytes # (Manual) ABG pO2 ABG HCO3 ABG Total CO2 ABG O2 Saturation ABG Base Excess Sodium 146 H D Potassium 3.4 L Chloride Carbon Dioxide BUN Creatinine BUN/Creatinine Ratio Glucose Calculated Osmolality Calcium Alkaline Phosphatase Total Protein Albumin Albumin/Globulin Ratio Prealbumin Specimen Hemolysis Urine Protein Urine Bilirubin Ur Leukocyte Esterase Urine WBC Urine Bacteria Scanlon 1.9 H 06/05/17 06/06/17 06/06/17 04:54 05:57 05:57 WBC RBC 3.41 L Hgb 9.7 L Hct 30.1 L MCHC Immature Gran % (Auto) 1.6 H Neut % (Auto) 70.7 H Lymph % (Auto) 15.9 L [place] % (Auto) Eos % (Auto) Neut # (Auto) Lymph # (Auto) Abs Immat Gran (auto) 0.11 H Neutrophils % (Manual) Band Neutrophils % Lymphocytes % (Manual) Neutrophils # (Manual) Lymphocytes # (Manual) ABG pO2 ABG HCO3 ABG Total CO2 ABG O2 Saturation ABG Base Excess Sodium 149 H 146 H Potassium 2.9 L* D Chloride 115 H D 109 H Carbon Dioxide BUN 6.0 L 3.0 L D Creatinine 0.7 L 0.6 L BUN/Creatinine Ratio 5 L Glucose 141 H 141 H Calculated Osmolality 286 H Calcium Alkaline Phosphatase Total Protein Albumin Albumin/Globulin Ratio Prealbumin Specimen Hemolysis 71 H Urine Protein Urine Bilirubin Ur Leukocyte Esterase Urine WBC Urine Bacteria Scanlon 06/07/17 06/07/17 06/08/17 04:47 04:47 04:07 WBC RBC 3.55 L 3.18 L Hgb 9.9 L 8.7 L D Hct 31.0 L 28.5 L MCHC 30.5 L Immature Gran % (Auto) 0.7 H Neut % (Auto) 75.5 H Lymph % (Auto) 15.4 L [place] % (Auto) Eos % (Auto) Neut # (Auto) Lymph # (Auto) Abs Immat Gran (auto) 0.05 H Neutrophils % (Manual) 78.0 H Band Neutrophils % Lymphocytes % (Manual) 11.0 L Neutrophils # (Manual) Lymphocytes # (Manual) 0.9 L ABG pO2 ABG HCO3 ABG Total CO2 ABG O2 Saturation ABG Base Excess Sodium 148 H Potassium Chloride 113 H Carbon Dioxide BUN 5.0 L D Creatinine 0.6 L BUN/Creatinine Ratio Glucose 120 H Calculated Osmolality 282 H Calcium Alkaline Phosphatase 220 H Total Protein 5.4 L Albumin 2.4 L Albumin/Globulin Ratio 0.8 L Prealbumin Specimen Hemolysis Urine Protein Urine Bilirubin Ur Leukocyte Esterase Urine WBC Urine Bacteria Scanlon 06/08/17 06/09/17 06/09/17 04:07 04:40 04:40 WBC RBC 3.28 L Hgb 9.2 L Hct 29.7 L MCHC Immature Gran % (Auto) 0.9 H Neut % (Auto) 69.7 H Lymph % (Auto) 19.4 L [place] % (Auto) Eos % (Auto) 4.2 H Neut # (Auto) Lymph # (Auto) Abs Immat Gran (auto) 0.05 H Neutrophils % (Manual) Band Neutrophils % Lymphocytes % (Manual) Neutrophils # (Manual) Lymphocytes # (Manual) ABG pO2 ABG HCO3 ABG Total CO2 ABG O2 Saturation ABG Base Excess Sodium 145 H Potassium 3.3 L D Chloride 110 H 108 H Carbon Dioxide BUN 3.0 L 3.0 L Creatinine 0.6 L 0.6 L BUN/Creatinine Ratio 5 L 5 L Glucose 114 H 116 H Calculated Osmolality Calcium 8.2 L 8.3 L Alkaline Phosphatase Total Protein Albumin Albumin/Globulin Ratio Prealbumin Specimen Hemolysis Urine Protein Urine Bilirubin Ur Leukocyte Esterase Urine WBC Urine Bacteria Scanlon 06/10/17 06/10/17 06/11/17 06:01 06:01 04:49 WBC 11.7 H RBC 3.19 L 3.56 L Hgb 9.0 L 9.7 L Hct 29.1 L 33.0 L D MCHC 30.9 L 29.4 L Immature Gran % (Auto) Neut % (Auto) 76.7 H 80.0 H Lymph % (Auto) 16.4 L 13.1 L [place] % (Auto) Eos % (Auto) Neut # (Auto) 9.4 H Lymph # (Auto) Abs Immat Gran (auto) Neutrophils % (Manual) Band Neutrophils % Lymphocytes % (Manual) Neutrophils # (Manual) Lymphocytes # (Manual) ABG pO2 ABG HCO3 ABG Total CO2 ABG O2 Saturation ABG Base Excess Sodium Potassium Chloride Carbon Dioxide 31 H BUN 3.0 L Creatinine 0.6 L BUN/Creatinine Ratio 5 L Glucose Calculated Osmolality Calcium Alkaline Phosphatase Total Protein Albumin Albumin/Globulin Ratio Prealbumin Specimen Hemolysis Urine Protein Urine Bilirubin Ur Leukocyte Esterase Urine WBC Urine Bacteria Scanlon 06/11/17 06/12/17 06/12/17 04:49 04:25 04:25 WBC RBC 3.01 L Hgb 8.3 L D Hct 27.9 L D MCHC 29.7 L Immature Gran % (Auto) Neut % (Auto) 74.5 H Lymph % (Auto) 16.9 L [place] % (Auto) Eos % (Auto) Neut # (Auto) Lymph # (Auto) Abs Immat Gran (auto) Neutrophils % (Manual) Band Neutrophils % Lymphocytes % (Manual) Neutrophils # (Manual) Lymphocytes # (Manual) ABG pO2 ABG HCO3 ABG Total CO2 ABG O2 Saturation ABG Base Excess Sodium 145 H Potassium Chloride Carbon Dioxide 31 H BUN 4.0 L 5.0 L Creatinine 0.6 L 0.6 L BUN/Creatinine Ratio Glucose Calculated Osmolality Calcium 8.3 L Alkaline Phosphatase 162 H Total Protein 5.6 L Albumin 2.6 L Albumin/Globulin Ratio 0.9 L Prealbumin 8.6 L D Specimen Hemolysis Urine Protein Urine Bilirubin Ur Leukocyte Esterase Urine WBC Urine Bacteria Scanlon 0.4 L 06/13/17 06/13/17 04:57 04:57 WBC RBC 3.08 L Hgb 8.7 L Hct 28.0 L MCHC Immature Gran % (Auto) Neut % (Auto) Lymph % (Auto) [place] % (Auto) Eos % (Auto) Neut # (Auto) Lymph # (Auto) Abs Immat Gran (auto) Neutrophils % (Manual) 70.0 H Band Neutrophils % Lymphocytes % (Manual) 20.0 L Neutrophils # (Manual) Lymphocytes # (Manual) ABG pO2 ABG HCO3 ABG Total CO2 ABG O2 Saturation ABG Base Excess Sodium Potassium Chloride Carbon Dioxide BUN 6.0 L Creatinine 0.6 L BUN/Creatinine Ratio Glucose Calculated Osmolality Calcium Alkaline Phosphatase Total Protein Albumin 2.8 L Albumin/Globulin Ratio Prealbumin Specimen Hemolysis Urine Protein Urine Bilirubin Ur Leukocyte Esterase Urine WBC Urine Bacteria Scanlon - Diagnostic Findings Chest x-ray: report reviewed, image reviewed Assessment and Plan (1) Obstructive sleep apnea Status: Acute Assessment and plan: He is on CPAP 10 at home with a newer Respironics Dreamstation. For reasons unclear he has not been tolerating his home CPAP, but has been using the hospital's unit set on CPAP 10. I recommend that upon discharge he resume use of his home CPAP over the next 30 days. I would like to see him back in 30 days for a review of his compliance and efficacy of the treatment. If he is unable to do this I would recommend a cpap titration study. Current Visit: Yes (2) Aspiration pneumonia Status: Acute Assessment and plan: recurrent aspiration due to recent esophagectomy. This has contributed to recurrent cough and sputum with hospitalization due to pneumonia. He is on a modified diet. continue to monitor for signs of dysphagia and aspiration. I would continue speech therapy evaluation and treatment. Current Visit: Yes (3) COPD (chronic obstructive pulmonary disease) Status: Acute Assessment and plan: His home regimen is Advair 250/50, Proair PRN. I would recommend adding nebulized albuterol/iprat TID at home to help with mucus clearance and bronchoconstriction. Current Visit: Yes - Time Spent With Patient Total time spent is greater than 50% in coordination of care (as documented) at patient's floor/unit and/or counseling patient: 25 - 35 minutes
--- NOTE | 2017-06-13 13:21 | Neuropsychiatric Consult ---
[facility] Date: 06/13/17 Requesting Physician: Corazon Walker Reason for Consultation: Medication management Start Time: 12:00 Stop Time: 13:30 Care: >50% of this visit spent in counseling/coordination care. (discussion with family, outpatient providers) History of Present Illness: Patient is a 61-year-old , retired male with a hx of vascular dementia, MDD who was admitted to [facility] on 06/02/17 with lithium toxicity (Li level 3.1). Primary team's note at time of admission: "Chris Kiran is a 61-year-old patient of Dr. Garland who has a complex medical history including a history of esophageal cancer. He underwent an esophagectomy in [address] [place] in [place]. Since that time, he has been following closely with Dr. Webster, even since his move to [place]. Since his esophagectomy, Chris developed a large hiatal hernia and it was determined that he needed to have repaired as a significant amount of his intestine and stomach had migrated into his thoracic cavity. He underwent the surgery on 04/26/17 in [place]. Prior to his surgery, his reports that he was very active and functionally independents. He remained hospitalized in [place] for a week following his surgery and discharge home to [place] around 05/03/17. Since that time, his reports that he has progressively become more debilitated with increased confusion, slurred speech, increased disorientation and increased lethargy. She also reports that he has been refusing to eat, stating that nothing tastes right and expresses significant fear about aspirating as he has had frequent bouts with aspiration pneumonia. She also reports that she has been sleeping significantly more over the past few weeks which she attributes to him refusing to wear his CPAP at night because he "can't breath" with it on. He follows with Dr. Pablo for his COPD and sleep apnea and recently attempted to undergo a sleep study which he could not complete. He has also been following with Dr. Francis, cardiology, and was most recently seen yesterday, 06/01/17 and told his heart was doing great. Recently he was seen by Dr. Mendoza, urology, due to an elevated PSA. Repeat PSA was improved and no prostate biopsy was performed. On 05/29/17, he underwent a modified barium swallow due to inability to eat and significant weight loss since his surgery (162lb prior to surgery, 134 lb on admission). The study revealed trace aspiration with thin consistency barium. He was seen by speech therapy as an outpatient on 05/31/17 and found to be significantly malnourished and dehydrated with significant oropharyngeal dysphagia and at increased risk for aspiration given his lethargy on the exam. Speech recommended that he remain NPO due to his decreased level of consciousness with hopeful advancement to pureed consistency with nectar thickened liquids as a goal in the future. He was encouraged to follow up with his PCP, Dr. Steel, whom he saw this morning, 06/02/17. Due to his decreased level of consciousness and dehydration, Dr. Juárez was consulted and he was initially admitted into observation status. Upon arrival, labs were obtained and revealed leukocytosis (WBC 13.7), anemia (12.1), hypokalemia (K 2.7), elevated alkaline phosphatase ( 384), severe protein calorie malnutrition (prealbumin 5.3) and lithium toxicity (lithium 3.1). Chest x-ray revealed basilar airspace disease. Given his pneumonia with leukocytosis and high risk due to his severe protein calorie malnutrition as well as his lithium toxicity, altered mental status and severe hypokalemia, he was changed to inpatient status for close respiratory, cardiovascular and neurologic monitoring, IV hydration, IV potassium supplementation and further evaluation and treatment. His length of stay is expected to be greater than 2 days. Due to his somnolence on exam, the majority of his history was obtained from his , nursing and prior medical records." Patient has now been medically stabilized, and psychiatry was consulted for recommendation on psychotropic med management. I spoke with the patient who was able to give me very limited hx due to dementia. He asks that I speak with his Blanche. He describes his mood as "stable" now and says he is not sure what his medication are supposed to be, what past med trials have been, etc. He denies any change in sleep, appetite or energy. He is not able to tell me what happened that he is in the hospital. He denies SI, HI, AVH. He denies hx of symptoms consistent with bipolar d/o but said there were times years ago when he was paranoid. Patient does have a hx of getting ECT, last in ~2002. Patient is fully oriented during interview but did poorly on [employer] ( with 10th grade education). He missed 1 money question, anmed only 11 animals, remembered 2/5 objects, could repeat only 3 numbers backwards, was unable to draw a clock, and missed 3/4 story questions. Patient does state that he used to drink heavily and used cocaine and marijuana, but stopped all of this over 15 years ago. He states a paternal aunt had an unknown type of dementia but denies family hx of mental illness otherwise. He denies any hx of seizures and says he does not know if he's ever had any head injuries. I spoke with patient's Blanche and [id number] Mounika Chaney, who is a psychologist in [place] and was very helpful in regards to hx. Apparently patient was receiving psychiatric care from [facility] in [facility]. He and his relocated here in May 2016 and he periodically travelled back for psychiatric care, last seen in October 2016. He then established care here with Josse Vanegas on 05/25/17 seeing Dell Bautista. At that appointment, Dell continued patient's previous medications ([place] 900mg at HS, Effexor XR 450mg PO daily, mirtazapine 15mg PO q HS). Per , she had taken patient's past Li levels to this appointment and Dell reviewed them and stated he did not need lithium levels currently. Per and [id number], symptoms as above had started prior to this appointment with Dell. stated patient was sleeping through much of interview that day and was very confused, agitated/ violent at home, and sleeping all the time. They had reportedly gone to a part maker and record systems analyst the same week trying to figure out what was wrong. Patient was admitted to [facility] ~4 days later. Per family, patient is a recovering alcoholic but has been sober for many years as reported. He last got ECT in [id number]. He was diagnosed with vascular dementia s/p stroke in ~2003 (by neurologist in [facility] Family denied hx of symptoms consistent with bipolar disorder when questioned in depth though said he would go from "pleasant and happy to 'you're going to '" in the days just before this admission (likely delirium). thinks modafinil may have been started by psychiatrist in [place]. She agrees to bring all records that she has for review. Patient also had an esophagectomy in [place] on 04/26/17 nd family says he was doing well shortly after surgery then once he got home, began having difficulty walking, talking, was more confused, and had lost a significant amount of weight since that time (~30 lb). Review of Systems [facility] Patient Stated Medical History Cerebrovascular Accident Yes Dementia Yes Peripheral Neuropathy Yes: legs Dental Problems Yes: dentures doesnt wear Dysphagia Yes Glaucoma Yes Hearing Loss Yes: no hearing aides Coronary Artery Disease Yes Myocardial Infarction Yes Chronic Obstructive Pulmonary Yes Disease (COPD) Pneumonia Yes Sleep Apnea Yes: uses c pap Diabetes Mellitus Type 2 Yes Cirrhosis Yes Gastroesophageal Reflux Yes Disease Hiatal Hernia Yes Clotting Problems Yes: unknown had been on plavix Blood Transfusions Yes Depression Yes Medical History Updates: CAD. Hypertension. Hyperlipidemia. Dibetes mellitus , type II. Diabetic neuropathy. COPD. Sleep apnea with home CPAP. Vascular dementia. GERD. Dysphagia. Chronic pain. Chronic anemia. Severe depression with prior ECT treatments - 2002. History of alcohol abuse. History of esophageal cancer and Philippe's esophagus. Questionable history of CVA - 2003. Prior suicidial attempt - 2002. Surgical History: Major hiatal hernia repair - removing abdomonal structures from thoracic cavity - 04/26/2017 (Dr. Eleanor Powell). Esophagectomy - 1991 (Dr. Eleanor Powell). Appendectomy. 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 Patient has been x2 (current Blanche) and has 2 sons from a previous marriage. He retired in 2003. He and his now live in a private home in [place] after moving from [place] in May 2016. Review of Systems All systems: reviewed and no additional remarkable complaints except as stated ( States "I feel fine") - EENMT Nose: Absent: obstruction - Cardiovascular Vascular: Absent: pallor of an extermity, pedal edema - Genitourinary Genitourinary: Absent: hematuria - Neurological Neurological: Present: memory loss, tremor(s) (very slight in hands) Mental Status Exam Vitals: Last Vital Signs Temp 97.1 F 06/13/17 07:34 Pulse 95 06/13/17 11:00 Resp 16 06/13/17 11:00 BP 113/67 06/13/17 11:00 Pulse Ox 95 06/13/17 11:00 Height: 1.63 m Weight: 65.7 kg - Mental Status Exam Muscle Strength/Tone: Normal Dressing: Casual Grooming: Fair Attitude: Cooperative Motor Activity: Normal Eye Contact: Good Speech: Slowed Volume: Normal Rhythm: Appropriate Rhythm Sensory: Alert Orientation: Disoriented to situation, Oriented to person, Oriented to place, Oriented to time Mood: Neutral Affect: Relaxed Rate of Thoughts: Delayed Thought Organization: [place]is, Confused Associations: Intact Abstract Reasoning: Poor abstract reasoning Thought Content: Normal Perception/Psychotic: Perception Normal Language: Naming Intact Fund of Knowledge: Poor fund of knowledge (SLUMS ) Memory: Poor-immediate, Poor-recent Suicidal Ideation: Denies Homicidal Ideation: Denies Insight: Impaired Judgement: Impaired Impulse Control: Good - Laboratory Result Diagrams: 06/13/17 04:57 06/13/17 04:57 Laboratory Results - last 24 hr 06/12/17 06/12/17 06/12/17 04:25 15:30 18:47 WBC RBC Hgb Hct MCV MCH MCHC RDW Std Deviation Plt Count MPV Neutrophils % (Manual) Lymphocytes % (Manual) Monocytes % (Manual) Eosinophils % (Manual) Basophils % (Manual) Neutrophils # (Manual) Lymphocytes # (Manual) Monocytes # (Manual) Eosinophils # (Manual) Basophils # (Manual) RBC Morph Comment Turbidity Sodium Potassium Chloride Carbon Dioxide Anion Gap BUN Creatinine GFR Calculation BUN/Creatinine Ratio Glucose Glucometer 66 210 Calculated Osmolality Calcium Phosphorus 3.6 Icterus Index Albumin Specimen Hemolysis 06/12/17 06/13/17 06/13/17 20:15 04:57 04:57 WBC 6.7 RBC 3.08 L Hgb 8.7 L Hct 28.0 L MCV 90.9 MCH 28.2 MCHC 31.1 RDW Std Deviation 45.7 Plt Count 372 MPV 10.3 Neutrophils % (Manual) 70.0 H Lymphocytes % (Manual) 20.0 L Monocytes % (Manual) 5.0 Eosinophils % (Manual) 3.0 Basophils % (Manual) 2.0 Neutrophils # (Manual) 4.7 Lymphocytes # (Manual) 1.3 Monocytes # (Manual) 0.3 Eosinophils # (Manual) 0.2 Basophils # (Manual) 0.1 RBC Morph Comment Normal Turbidity < 20 Sodium 143 Potassium 4.2 Chloride 107 Carbon Dioxide 26 Anion Gap 10 BUN 6.0 L Creatinine 0.6 L GFR Calculation 136 BUN/Creatinine Ratio 10 Glucose 80 Glucometer 146 Calculated Osmolality 272 Calcium 9.0 D Phosphorus 3.6 Icterus Index < 2 Albumin 2.8 L Specimen Hemolysis < 15 06/13/17 06/13/17 06:03 10:03 WBC RBC Hgb Hct MCV MCH MCHC RDW Std Deviation Plt Count MPV Neutrophils % (Manual) Lymphocytes % (Manual) Monocytes % (Manual) Eosinophils % (Manual) Basophils % (Manual) Neutrophils # (Manual) Lymphocytes # (Manual) Monocytes # (Manual) Eosinophils # (Manual) Basophils # (Manual) RBC Morph Comment Turbidity Sodium Potassium Chloride Carbon Dioxide Anion Gap BUN Creatinine GFR Calculation BUN/Creatinine Ratio Glucose Glucometer 75 113 Calculated Osmolality Calcium Phosphorus Icterus Index Albumin Specimen Hemolysis Assessment and Plan (1) [place] toxicity Current visit: Yes Status: Resolved (2) Major neurocognitive disorder Problem details: Moderate, mixed etiology likely (vascular + alcohol dementia) Current visit: Yes Status: Acute (3) History of depression Current visit: Yes Status: Chronic (4) COPD (chronic obstructive pulmonary disease) Current visit: Yes Status: Acute (5) Obstructive sleep apnea Current visit: Yes Status: Acute (6) Severe protein-calorie malnutrition Current visit: Yes Status: Acute Due to complicated nature of patient's medication regimen and recent lithium toxicity, recommend transfer to [facility] for further medication management that I do not feel could safely be done on an outpatient basis. As indication for lithium use is not clear and patient is taking almost double FDA-approved dose of Effexor, as well as other medications that can affect mood/appetite, significant changes recommended. Discussed with family, hospitalist, supervising physician for o/p provider, all of whom are in agreement with plan. Hospitalist feels patient may be able to transfer tomorrow. In the meantime, will change order to begin lithium taper.
--- NOTE | 2017-06-13 14:45 | Progress Note ---
- Date 06/13/17 Subjective: Patient is seen today resting in bed. He states overall he is feeling well. He was just outside in the courtyard. His is very pleased to find out that he got [facility]. Patient feels he is getting stronger. No chest pain , shortness of breath, nausea or vomiting. Objective Vital signs: Temperature 97.1 F 06/13/17 07:34 Pulse Rate 95 06/13/17 11:00 Respiratory Rate 16 06/13/17 11:00 Blood Pressure 113/67 06/13/17 11:00 Pulse Oximetry 95 06/13/17 11:00 Height/Weight/BMI: Height 1.63 m Weight 65.7 kg Body Mass Index 25.7 - Constitutional Present: no acute distress, well nourished, well developed - Routine HEENT Exam Head: Present: normocephalic, atraumatic - Routine Respiratory Exam Present: CTA bilaterally. Absent: wheezes - Routine Cardiovascular Exam Present: RRR, no murmur - Routine Abdominal Exam Present: soft, non distended, non tender - Routine Extremities Exam Present: edema (1+ pitting pretibial bilaterally), normal capillary refill - Routine Skin Exam Present: dry, warm - Routine Neurological Exam Present: alert - Routine Lymphatic Exam Lymphatic: Absent: adenopathy - Routine Psychiatric Exam Present: normal affect, cooperative Results - Labs CBC & Chem 7: 06/13/17 04:57 06/13/17 04:57 Microbiology Results: Microbiology 06/02/17 15:38 Peripheral/Iv Start Blood Culture - Final No Growth After 5 Days 06/02/17 15:34 Peripheral/Iv Start Blood Culture - Final No Growth After 5 Days 06/02/17 18:23 Urine, Voided (Cc/notcc) Urine Culture - Final Enterococcus faecalis Assessment and Plan (1) Pneumonia Current visit: Yes Status: Acute (2) Hypokalemia Current visit: Yes Status: Acute (3) Leukocytosis Current visit: Yes Status: Acute (4) Severe protein-calorie malnutrition Current visit: Yes Status: Acute (5) [place] toxicity Current visit: Yes Status: Resolved (6) UTI (urinary tract infection) due to Enterococcus Current visit: Yes Status: Acute Assessment and Plan: Acute Medical Conditions Altered mental status, acute. -Markedly improved per . Aspiration Pneumonia (POA) -improved UTI with Enterococcus faecalis (POA) Severe hypokalemia (POA) -resolved Leukocytosis (POA) - resolved Rapid weight loss with anorexia -improving Severe protein calorie malnutrition -improving [place] toxicity (POA) - resolved Dementia (vascular) with behavioral disturbance and increased agitation/ restlessness Major depressive disorder Dysphagia with declining oral intake ability Chronic Medical Conditions CAD Hypertension Hyperlipidemia Diabetes mellitus, type II Diabetic neuropathy COPD Sleep apnea with home CPAP GERD Dysphagia Chronic pain Chronic anemia Severe depression with prior ECT treatments - 2002 History of alcohol abuse History of esophageal cancer and Philippe's esophagus Questionable history of CVA - 2003 Prior suicidal attempt - [address] Pizarro has accepted patient to [facility] medication management. Plan is for him to be dismissed from medical tomorrow and be admitted there. His has brought in contact information for her mother who is a psychologist and deals with patient's psychiatric medication and has also brought in a copy of his recent lithium levels. This is placed on his paper chart. He is eating better, kristen now that his diet has been advanced. He had a calorie count over the weekend which averaged 465 alfie daily. Dietitian contacted and she will do a another calorie count over the past 24 hours and documented in the "notes" section of the chart. He 80% of breakfast today and 50% of lunch. Dr. Pablo has seen patient and recommended adding nebulized albuterol/ ipratropium 3 times a day at home to help with mucus clearance and bronchoconstriction. He has also recommended that he resume his home CPAP and follow-up with Dr. Pablo in the office for review of his compliance and efficacy of treatments. If he is unable to do this, he recommends a CPAP titration study. Continue with physical therapy, occupational therapy and speech therapy here in the hospital and while on [facility]. DC ampicillin. Has completed >7 day course for UTI. Labs stable. - Physician Narrative Physician: Corazon Walker MD Narrative: Date: 06/13/17 Time: 5 PM-I reviewed this chart, the patient history, and the RACECAR DRIVER's/PA's documented findings as above. We discussed and formulated the assessment and plan as above with the additions below.-Dr. Walker The patient was seen this afternoon in his room. He was taking and now but awoke easily. He denies any complaints. He states he feels stronger when he is up walking. He states he is eating okay. He denies any pain. On exam he is alert and in no acute distress. Chest reveals some scattered crackles.. Cardiovascular reveals a regular rate and rhythm. Abdomen is soft and nontender. Extremities are free of edema. Impression and plan Overall, the patient is doing well. By mouth intake is stable. Vital signs within stable. He has finished a seven-day course of antibiotics for UTI. If he is continuing to do well tomorrow, will transfer to [facility]. I did speak with Dr. Pizarro earlier today and appreciate her consultation on this patient. Hospital Course Summary Disclaimer: The visit summary below is not to be considered part of the above Progress Note. Hospital Course: Plan - 06/02/17: Admit to inpatient status under the care of Dr. Juárez. Labs obtained on admission - WBC 13.7, Hgb 12.1, K 2.7. CXR revealed pneumonia - blood cultures obtained and pending; lactate 1.3. Monitor closely for signs of sepsis. Rocephin 1g IV daily and Azithromycin 500mg IV daily initiated 06/02/17 for treatment of pneumonia. Potassium boluses x 4 given - monitor electrolytes closely. Monitor cardiac function closely on telemetry. Oxygen as needed to maintain SAO2 >90%. Currently on room air. Does not use oxygen at home. DuoNeb treatments and acapella. Will obtain ABG now given increased lethargy. believes behaviors are secondary to not using his CPAP at night. Speech recommending NPO status given decreased level of consciousness and risk for aspiration. Will hold oral home medications at this time. Significant history of depression. Consider psychiatric consult once mental status improved. Ativan as needed for increased behaviors and air hunger. If mental status does not improve, consider obtaining CT head and/or MRI brain for further evaluation. Will hold lithium given toxicity. Monitor levels. Given anemia and behavior changes, will check B12 level. Will try and obtain UA sample for evaluation. Upon discharge, patient's care will be returned to his PCP, Dr. Steel. 06/03 Continue Rocephin 1g IV daily and Azithromycin 500mg IV daily for treatment of pneumonia. DuoNeb treatments and acapella. Use CPAP. Speech continues to recommend NPO status. NGT to be placed. Start tube feedings. Consult warp changer. Accuchecks q6. Significant history of depression. Consider psychiatric consult once mental status improved. Ativan as needed for increased behaviors and air hunger. Given anemia and behavior changes, will check B12 level. Antibiotics expected to cover UTI. 06/04 Continue Rocephin 1g IV daily and Azithromycin 500mg IV daily for treatment of pneumonia. Speech continues to recommend NPO status. NGT placed and had to be replaced b/c it clogged. Enterococcus being ID'd in urine. Vancomycin x 1. Monitor. d/w Dr. Dior. He recommends enteral feedings and if patient's mental status continues to improve, he will consider further tests. x-ray shows retained barium. Add lactulose to bowel regimen. 06/05 Continue Azithromycin 500mg (day 4/5) IV daily for treatment of pneumonia. D/C Rocephin. Urine culture is positive for Enterococcus Faecalis - Will change to Ampicillin. Could change to PO Macrobid as PO intake improves. Continue with NPO therapeutic, however, patient is more alert today. We will see what speech therapy recommends. Hopeful oral drive will improve. He has been weaned off of oxygen is currently on room air. DuoNeb treatments and acapella. Use CPAP. . Questions if any cerebral event such as a stroke had caused patient's acute encephalopathy. We will obtain a CT scan of the brain to rule out intracranial bleeding or ischemia. Will consult PT and OT to evaluate patients strength. Prior to this acute illness patient was able to ambulate independently at home. We did discuss long-term plan as feels like patient will need further rehabilitation before he can come home independently. Consider IRU for aggressive rehabilitation. 06/06 Discontinue Azithromycin 500mg after today's final dose. Urine culture is positive for Enterococcus Faecalis - continue with Ampicillin. Continue with NPO therapeutic- Continue to work with speech therapy to increase oral intake and flag car driver. Swallow abilities making slow gains with speech - in discussion with ST today, not sure if swallow ability improved to point of being able to tolerate esophagram. Would hold on IRU discharge until either patient able to maintain oral nutrition on his own, or other feeding modality achieved. Feedings currently Via NG tube - will increase rate from 20cc/hr to 30cc/hr -- goal around 60cc/hr. Hypokalemia- Given 40 MEQ now, will repeat 40 meq at 1700. Then schedule 20 Meq BID. [place] level decreased to 0.6 - can restart lithium at 300mg nightly (home dose 900mg). CT brain was negative for acute CVA. Encourage work with PT/OT for strengthening. Hopeful for IRU when medically stable. 06/07 Diet upgraded to 6 small meals of pureed with nectar thick liquid. At this point will keep tube feeding at 30ml/hr for added nutrition. Will hopefully be able to decrease tube feedings as PO drive improves. As serum sodium increase to 148, will change IVF to D5W at 40cc/hr. Continue with Ampicillin for urinary coverage. Start bladder retraining. Encourage work with PT/OT for strengthening. Hopeful for IRU when medically stable. 06/08 Strength improving, still very weak but moving more with therapy. Oral intake improving. Tolerating 6 small meals of pureed with nectar thick liquid. Speech checking on calorie count. Continue tube feeding at 30ml/hr for added nutrition. IF Feeding Tube would inadvertently be removed, would leave out at this time. Will oral intake improving, not certain if doing well enough to maintain on his own. My concern with move to IRU at this point is may not have definitive feeding route. Would not want him to decline on IRU prompting readmission. With his prior surgery, uncertain if Feeding Tube would be a viable option. NG tube would limit information obtained from esophagram. Continue with Ampicillin for urinary coverage. Additional oral potassium today at noon as potassium decreased to 3.3. Sodium with decrease to 145 - continue D5W. Will remove Burton cath. Nursing to check post void bladder scans to make sure pt emptying bladder. 06/09 NGT dc'd (became clogged and was not functioning), pt ate 50% of breakfast. Preliminary esophagram repot: No stenosis of the lower esophagus of duodenum!! Barium pass through well. Speech working to increase consistency of food. Unfortunately, with his anatomy, it does not look like feeding tube would be option. Voiding well since Burton was dc'd. K improved to 3.6, Na down to 144. Mg stable. Hgb stable at 9.2. Renal function stable. Continue D5W for now. Give extra dose of KDur since K is still low-normal. Continue Ampicillin for urinary coverage, day #5. 06/10 Continue Ampicillin for urinary coverage, day #6. Oral drive and intake making slow gains. Sodium normalized - will stop IVF and monitor off of fluids. Bowels moving well; will stop routine Lactulose and Miralax. Encourage continued work with therapy. 06/11/17 Continue Ampicillin for urinary coverage, day #7. Oral drive and intake making slow gains. Sodium trending up a bit- suspect that thickened liquids are a factor. Will give one liter of fluid. Potassium level staying consistently normal - will decrease to 20mEq once a day. Encourage continued work with therapy. [place] level low - will increase lithium to 450mg at night (home dose 900mg) WBC up a bit to 11.7, but afebrile. Continue to monitor for now. 06/12/[address] Pizarro regarding lithium dosage and management of other psychiatric medication. She has recommended [facility] admission for further management. Dr. Pablo consultation. Recommends adding albuterol/ipratropium 3 times a day and using home CPAP and follow-up with him in one month. Continue therapies 06/13/17 Patient overall doing well. Plan to discharge to [facility] tomorrow. DC ampicillin. Has completed >7 day course for UTI. Labs stable. Addendum entered and electronically signed by JAM Dutta 06/13/17 15:16 : Calorie count over past 24 hours was 1480 - mostly in the form of liquids.
[2017-06-13] MEDS ORDERED: LITHIUM CITRATE PO SCH (15:57)
[2017-06-13] MEDS: ROSUVASTATIN 20 MG TABLET PO SCH (21:33)
[2017-06-13] MEDS: GABAPENTIN 600 MG TABLET PO SCH (21:34)
[2017-06-13] MEDS: PRAMIPEXOLE 0.5 MG TABLET PO SCH (21:34)
[2017-06-13] MEDS: LATANOPROST 0.005% EYE DROPS 2.5ml EACH EYE SCH (21:35)
[2017-06-14] MEDS: SALINE FLUSH 10ml SYRINGE IV PRN (06:07)
[2017-06-14] MEDS: PANTOPRAZOLE 40 MG TABLET PO SCH (06:07)
[2017-06-14] MEDS ORDERED: ISOSORBIDE MONONITRATE ER 30 MG TABLET PO SCH (06:30)
[2017-06-14] MEDS: ALBUTEROL/IPRATROPIUM 2.5mg-0.5mg/3ml NEB AEROSOL SCH ×2 (06:49→10:49)
[2017-06-14] MEDS: BUDESONIDE INH.SOLN 0.5mg/2ml NEB AEROSOL SCH (06:49)
[2017-06-14] MEDS: MODAFINIL 100 MG TABLET PO SCH (09:00)
[2017-06-14] MEDS: TAMSULOSIN 0.4 MG CAPSULE PO SCH (09:01)
[2017-06-14] MEDS: ASPIRIN *EC* 81 MG TABLET PO SCH (09:01)
[2017-06-14] MEDS: GABAPENTIN 100 MG CAPSULE PO SCH (09:01)
[2017-06-14] MEDS: ENOXAPARIN 40 MG/0.4 ML INJECTION SQ SCH (09:02)
--- NOTE | 2017-06-14 09:50 | Pulmonology Progress Note ---
Subjective Interval history: sitting up at the EOB eating. states no SOB, cough or sputum noted. Tolerated his Cpap last noc without issues and alfredito modified diet this am. Exam Vital signs: Temperature 96.5 F L 06/14/17 07:00 Pulse Rate 67 06/14/17 08:14 Respiratory Rate 18 06/14/17 07:00 Blood Pressure 109/64 06/14/17 07:00 Pulse Oximetry 93 06/14/17 07:00 Inpatient Medications: Generic Name Dose Route Start Last Admin Trade Name Freq PRN Reason Stop Dose Admin Acetaminophen 650 mg 06/02/17 14:25 06/06/17 21:06 Tylenol PO 650 mg Q5H PRN Administration Discomfort Acetaminophen 650 mg 06/02/17 17:29 Tylenol Supp IL Q5H PRN Pain Albuterol/Ipratropium 3 ml 06/02/17 14:33 Duoneb AEROSOL RTQID PRN Albuterol/Ipratropium 3 ml 06/02/17 19:00 06/14/17 06:49 Duoneb AEROSOL 3 ml RTQID VALERIO Administration Aspirin 81 mg 06/03/17 15:00 06/14/17 09:01 Ecotrin PO 81 mg DAILY VALERIO Administration Bisacodyl 10 mg 06/11/17 10:48 Dulcolax RECTALLY DAILY PRN Constipation Budesonide 0.5 mg 06/02/17 19:00 06/14/17 06:49 Pulmicort Inhalation AEROSOL 0.5 mg RTBID VALERIO Administration Enoxaparin Sodium 40 mg 06/03/17 15:30 06/14/17 09:02 Lovenox SQ 40 mg DAILY VALERIO Administration Gabapentin 200 mg 06/03/17 15:00 06/14/17 09:01 Neurontin PO 200 mg 0900,1500 VALERIO Administration Gabapentin 1,200 mg 06/09/17 21:00 06/13/17 21:34 Neurontin PO 1,200 mg HS VALERIO Administration Isosorbide Mononitrate 30 mg 06/14/17 06:30 06/14/17 06:07 Imdur PO 30 mg ACB VALERIO Administration Lactulose 20 gm 06/10/17 11:00 Lactulose PO BID PRN Latanoprost 1 drops 06/11/17 21:00 06/13/17 21:35 Xalatan EACH EYE 1 drops HS VALERIO Administration [place] Citrate 300 mg 06/13/17 15:57 06/13/17 21:34 [place] Oral Liq PO 300 mg HS VALERIO Administration Lorazepam 0.25 mg 06/02/17 16:38 06/07/17 22:57 Ativan Inj IVP 0.25 mg Q6H PRN Administration Magnesium Hydroxide 30 ml 06/11/17 10:48 Mom PO DAILY PRN Constipation Modafinil 200 mg 06/03/17 15:00 06/14/17 09:00 Provigil PO 200 mg DAILY VALERIO Administration Nitroglycerin 0.4 mg 06/03/17 14:54 Nitrostat SL Q5M PRN Chest pain Ondansetron HCl 4 mg 06/02/17 14:25 Zofran IVP Q6H PRN Nausea &/or vomiting Pantoprazole Sodium 40 mg 06/12/17 06:30 06/14/17 06:07 Protonix Tab PO 40 mg ACB VALERIO Administration Polyethylene Glycol 17 gm 06/10/17 11:00 06/11/17 09:16 Miralax PO 17 gm DAILY PRN Administration Potassium Chloride 20 meq 06/12/17 08:00 06/14/17 09:02 K-Dur 20 Meq Tablet PO 20 meq WB VALERIO Administration Pramipexole Dihydrochloride 0.5 mg 06/09/17 21:00 06/13/17 21:34 Mirapex PO 0.5 mg HS VALERIO Administration Rosuvastatin Calcium 40 mg 06/09/17 21:00 06/13/17 21:33 Crestor PO 40 mg HS VALERIO Administration Senna 17.2 mg 06/02/17 14:25 06/09/17 21:37 Senna Lax PO 17.2 mg HS PRN Administration Constipation Sodium Chloride 10 ml 06/02/17 13:33 06/14/17 06:07 Iv Flush IV 10 ml PRN PRN Administration Flushing Sodium Chloride 500 ml 06/02/17 13:33 06/13/17 00:27 Normal Saline IV 500 ml PRN PRN Administration Tamsulosin HCl 0.4 mg 06/03/17 15:00 06/14/17 09:01 Flomax PO 0.4 mg DAILY VALERIO Administration Tramadol/Acetaminophen 1 tab 06/09/17 18:15 Ultracet PO Q8H PRN Pain Venlafaxine HCl 450 mg 06/09/17 08:00 06/14/17 08:59 Effexor Xr PO 450 mg WB VLAERIO Administration Discontinued Medications Generic Name Dose Route Start Last Admin Trade Name Freq PRN Reason Stop Dose Admin Albuterol/Ipratropium 3 ml 06/02/17 18:07 Duoneb AEROSOL RTQID PRN Wheezing Gabapentin 1,200 mg 06/03/17 21:00 Neurontin PO HS VALERIO Gabapentin 1,200 mg 06/03/17 21:00 06/08/17 22:26 Neurontin NG 1,200 mg HS VALERIO Administration Lidocaine HCl 10 mg/ Potassium 100 mls @ 100 mls/hr 06/02/17 13:00 06/02/17 20:25 Chloride 10 meq/ Sodium IV 06/02/17 17:13 Infused Chloride .Q1H VALERIO Infusion Azithromycin 500 mg/ Sodium 250 mls @ 167 mls/hr 06/02/17 14:30 06/06/17 15: 38 Chloride IV 06/06/17 23:59 Infused Q24H VALERIO Infusion Ceftriaxone Sodium 1 g/ Sodium 100 mls @ 200 mls/hr 06/02/17 14:30 06/04/17 14:46 Chloride IV Infused Q24H VALERIO Infusion Sodium Chloride 1,000 mls @ 100 mls/hr 06/02/17 17:45 06/05/17 11:18 Normal Saline IV Infused .Q10H VALERIO Infusion Potassium Chloride 10 meq/ 106 mls @ 100 mls/hr 06/03/17 15:15 06/04/17 00:15 Lidocaine HCl 10 mg/ Sodium IV 06/03/17 19:14 Infused Chloride Q1H VALERIO Infusion Potassium Chloride 10 meq/ 106 mls @ 100 mls/hr 06/04/17 13:00 06/04/17 23:05 Lidocaine HCl 10 mg/ Sodium IV 06/04/17 16:59 Infused Chloride Q1H VALERIO Infusion Vancomycin HCl 1,000 mg/ 250 mls @ 250 mls/hr 06/04/17 12:04 06/04/17 14:16 Sodium Chloride IV 06/04/17 12:05 Infused O ONE Infusion Sodium Chloride 1,000 mls @ 75 mls/hr 06/05/17 10:30 06/07/17 15:31 1/2 Normal Saline IV Infused .[id number] VALERIO Infusion Ampicillin Sodium 500 mg/ 100 mls @ 200 mls/hr 06/05/17 13:00 06/13/17 15:47 Sodium Chloride IV Infused Q6H VALERIO Infusion Dextrose 1,000 mls @ 40 mls/hr 06/07/17 15:15 06/10/17 11:48 Dextrose 5% In Water IV Infused .Q24H VALERIO Infusion Sodium Chloride 1,000 mls @ 75 mls/hr 06/11/17 14:00 06/12/17 05:10 Normal Saline IV 06/12/17 03:19 Infused .[id number] VALERIO Infusion Isosorbide Dinitrate 30 mg 06/04/17 06:30 06/13/17 06:02 Isordil PO 30 mg ACB VALERIO Administration Isosorbide Mononitrate 30 mg 06/03/17 15:00 06/09/17 06:19 Imdur PO Not Given 0700 VALERIO Lactulose 20 gm 06/04/17 21:00 06/04/17 21:30 Lactulose PO Not Given BID VALERIO Lactulose 20 gm 06/04/17 21:31 06/10/17 11:08 Lactulose PO Not Given BID VALERIO [place]i Citrate 300 mg 06/06/17 21:00 06/10/17 21:33 [place]i Oral Liq PO 300 mg HS VALERIO Administration [place] Citrate 450 mg 06/11/17 21:00 06/12/17 20:03 [place]i Oral Liq PO 450 mg HS VALERIO Administration Pantoprazole Sodium 40 mg 06/02/17 14:30 06/11/17 09:21 Protonix Iv IVP 40 mg DAILY VALERIO Administration Pharmacy Consult each 06/04/17 11:05 Pharmacy Consult - Fall Risk 06/04/17 11:06 ONE TIME ONE Pharmacy Consult 1 each 06/12/17 11:55 Pharmacy Consult - Fall Risk 06/12/17 11:56 ONE TIME ONE Polyethylene Glycol 17 gm 06/03/17 09:00 06/10/17 11:08 Miralax PO Not Given DAILY VALERIO Potassium Chloride 40 meq 06/06/17 07:41 06/06/17 08:08 K-Dur 20 Meq Tablet PO 06/06/17 07:42 40 meq O ONE Administration Potassium Chloride 20 meq 06/06/17 09:12 06/06/17 11:03 Kcl Oral Liq 20 Meq/15 Ml NG 06/06/17 09:13 20 meq ONE TIME ONE Administration Potassium Chloride 20 meq 06/07/17 09:00 06/11/17 09:18 Micro-K 10 Meq Capsule PO 20 meq BIDWM VALERIO Administration Potassium Chloride 40 meq 06/06/17 17:00 06/06/17 16:27 K-Dur 20 Meq Tablet PO 06/06/17 17:01 40 meq O ONE Administration Potassium Chloride 20 meq 06/08/17 12:00 06/08/17 12:19 Kcl Oral Liq 20 Meq/15 Ml PO 06/08/17 12:01 20 meq O ONE Administration Potassium Chloride 20 meq 06/09/17 13:42 06/09/17 18:55 K-Dur 20 Meq Tablet PO 06/09/17 13:43 20 meq O ONE Administration Pramipexole Dihydrochloride 0.5 mg 06/03/17 21:00 Mirapex PO HS VALERIO Pramipexole Dihydrochloride 0.5 mg 06/03/17 21:00 06/08/17 22:26 Mirapex NG 0.5 mg HS VALERIO Administration Rosuvastatin Calcium 40 mg 06/03/17 21:00 Crestor PO HS VALERIO Rosuvastatin Calcium 40 mg 06/03/17 21:00 06/08/17 22:26 Crestor NG 40 mg HS VALERIO Administration Tramadol/Acetaminophen 1 tab 06/03/17 14:54 Ultracet PO Q8H PRN Pain Tramadol/Acetaminophen 1 tab 06/03/17 20:09 06/04/17 22:03 Ultracet NG 1 tab Q8H PRN Administration Pain Vancomycin HCl 1 each 06/05/17 12:00 06/05/17 17:23 Pharmacy Consult - Vancomycin MC 06/05/17 12:01 Not Given O ONE Venlafaxine HCl 450 mg 06/03/17 15:00 06/08/17 09:17 Effexor Xr PO 450 mg DAILY VALERIO Administration - Constitutional no acute distress, well nourished, cooperative - Routine HEENT Exam Head: Present: normocephalic, atraumatic Eye: Present: EOMI, PERRL ENT: Present: mucous membranes moist - Routine Neck Exam Present: supple, full ROM, trachea midline - Routine Respiratory Exam Present: decreased breath sounds. Absent: accessory muscle use, patient mechanically ventilated - Routine Cardiovascular Exam Present: RRR, S1, S2, no murmur - Routine Abdominal Exam Present: soft, normoactive bowel sounds - Routine Extremities Exam Present: no edema, non tender, full ROM. Absent: cyanosis, clubbing - Routine Back/Spine/Pelvis Exam Back/Spine: Present: full ROM - Routine Skin Exam Present: intact, dry - Routine Neurological Exam Present: alert, oriented X3, CN II-XII intact - Routine Psychiatric Exam Present: normal affect, normal thought process - Urinary Catheter Management Urethral Cath placed during this visit: yes Urethral indwelling: No Insertion date: 06/02/17 Insertion time: 18:26 Results - Laboratory Findings Laboratory: Laboratory Results - last 48 hr 06/11/17 06/12/17 06/12/17 04:43 04:25 11:04 WBC RBC Hgb Hct MCV MCH MCHC RDW Std Deviation Plt Count MPV Neutrophils % (Manual) Lymphocytes % (Manual) Monocytes % (Manual) Eosinophils % (Manual) Basophils % (Manual) Neutrophils # (Manual) Lymphocytes # (Manual) Monocytes # (Manual) Eosinophils # (Manual) Basophils # (Manual) RBC Morph Comment Turbidity Sodium Potassium Chloride Carbon Dioxide Anion Gap BUN Creatinine GFR Calculation BUN/Creatinine Ratio Glucose Glucometer 115 Calculated Osmolality Calcium Phosphorus 3.6 Iron 47 L TIBC 271 % Saturation 17 Icterus Index Albumin Specimen Hemolysis 06/12/17 06/12/17 06/12/17 15:30 18:47 20:15 WBC RBC Hgb Hct MCV MCH MCHC RDW Std Deviation Plt Count MPV Neutrophils % (Manual) Lymphocytes % (Manual) Monocytes % (Manual) Eosinophils % (Manual) Basophils % (Manual) Neutrophils # (Manual) Lymphocytes # (Manual) Monocytes # (Manual) Eosinophils # (Manual) Basophils # (Manual) RBC Morph Comment Turbidity Sodium Potassium Chloride Carbon Dioxide Anion Gap BUN Creatinine GFR Calculation BUN/Creatinine Ratio Glucose Glucometer 66 210 146 Calculated Osmolality Calcium Phosphorus Iron TIBC % Saturation Icterus Index Albumin Specimen Hemolysis 06/13/17 06/13/17 06/13/17 04:57 04:57 06:03 WBC 6.7 RBC 3.08 L Hgb 8.7 L Hct 28.0 L MCV 90.9 MCH 28.2 MCHC 31.1 RDW Std Deviation 45.7 Plt Count 372 MPV 10.3 Neutrophils % (Manual) 70.0 H Lymphocytes % (Manual) 20.0 L Monocytes % (Manual) 5.0 Eosinophils % (Manual) 3.0 Basophils % (Manual) 2.0 Neutrophils # (Manual) 4.7 Lymphocytes # (Manual) 1.3 Monocytes # (Manual) 0.3 Eosinophils # (Manual) 0.2 Basophils # (Manual) 0.1 RBC Morph Comment Normal Turbidity < 20 Sodium 143 Potassium 4.2 Chloride 107 Carbon Dioxide 26 Anion Gap 10 BUN 6.0 L Creatinine 0.6 L GFR Calculation 136 BUN/Creatinine Ratio 10 Glucose 80 Glucometer 75 Calculated Osmolality 272 Calcium 9.0 D Phosphorus 3.6 Iron TIBC % Saturation Icterus Index < 2 Albumin 2.8 L Specimen Hemolysis < 15 06/13/17 06/13/17 06/13/17 10:03 14:43 20:30 WBC RBC Hgb Hct MCV MCH MCHC RDW Std Deviation Plt Count MPV Neutrophils % (Manual) Lymphocytes % (Manual) Monocytes % (Manual) Eosinophils % (Manual) Basophils % (Manual) Neutrophils # (Manual) Lymphocytes # (Manual) Monocytes # (Manual) Eosinophils # (Manual) Basophils # (Manual) RBC Morph Comment Turbidity Sodium Potassium Chloride Carbon Dioxide Anion Gap BUN Creatinine GFR Calculation BUN/Creatinine Ratio Glucose Glucometer 113 133 137 Calculated Osmolality Calcium Phosphorus Iron TIBC % Saturation Icterus Index Albumin Specimen Hemolysis 06/14/17 06:19 WBC RBC Hgb Hct MCV MCH MCHC RDW Std Deviation Plt Count MPV Neutrophils % (Manual) Lymphocytes % (Manual) Monocytes % (Manual) Eosinophils % (Manual) Basophils % (Manual) Neutrophils # (Manual) Lymphocytes # (Manual) Monocytes # (Manual) Eosinophils # (Manual) Basophils # (Manual) RBC Morph Comment Turbidity Sodium Potassium Chloride Carbon Dioxide Anion Gap BUN Creatinine GFR Calculation BUN/Creatinine Ratio Glucose Glucometer 73 Calculated Osmolality Calcium Phosphorus Iron TIBC % Saturation Icterus Index Albumin Specimen Hemolysis Assessment and Plan - Assessment and Plan Aspiration pneumonia COPD ANGELA Hx esophagectomy Plan: Pt currently on RA, alfredito home Cpap 10cm H20 last noc. Encouraged cont use at noc. S/p abx for aspiration pna. Would cont modified diet, ST treatment and encourage smaller meals at night, sitting up for 2-3 hrs after meals and avoid caffeine. Would continue advair at home and add ipratropium TID to his albuterol and make TID. Would add acapella for continued mucous clearance. Would like to see him back in clinic in 30 days to assess his Cpap compliance. [facility] today. - Time Spent With Patient Total time spent is greater than 50% in coordination of care (as documented) at patient's floor/unit and/or counseling patient: less than 15 minutes
--- NOTE | 2017-06-14 10:26 | Discharge Summary ---
Discharge Information Date of admission: 06/02/17 15:27 Anticipated date of discharge: 06/14/17 Attending Physician: Corazon Walker MD Primary care physician: Tyshawn Steel II, MD Consults: Chris Dior-surgeon Recommendations: 1. I agree with Rocephin and azithromycin for treatment of pneumonia. 2. IV hydration of patient. 3. Correct hypokalemia. 4. Hold lithium. 5. TPN for nutritional support. 6. CT head scan or MRI of the brain if the mental status does not improve. 7. Esophagram and upper GI x-ray series if mental status improves enough for the patient to cooperate with these imaging studies. 8. Sequential compression devices for deep venous thrombosis prophylaxis. 9. Intravenous Protonix for GI prophylaxis. Marlena Pizarro-psych Recommendations: Due to complicated nature of patient's medication regimen and recent lithium toxicity, recommend transfer to [facility] for further medication management that I do not feel could safely be done on an outpatient basis. As indication for lithium use is not clear and patient is taking almost double FDA-approved dose of Effexor, as well as other medications that can affect mood/appetite, significant changes recommended. Jovany Pablo-pulmonolgy Recommendations: Pt currently on RA, alfredito home Cpap 10cm H20 last noc. Encouraged cont use at noc. S/p abx for aspiration pna. Would cont modified diet , ST treatment and encourage smaller meals at night, sitting up for 2-3 hrs after meals and avoid caffeine. Would continue advair at home and add ipratropium TID to his albuterol and make TID. Would add acapella for continued mucous clearance. Would like to see him back in clinic in 30 days to assess his Cpap compliance. - Discharge Diagnosis (1) Pneumonia Status: Acute (2) Hypokalemia Status: Acute (3) Leukocytosis Status: Acute (4) Severe protein-calorie malnutrition Status: Acute (5) [employer] toxicity Status: Resolved (6) UTI (urinary tract infection) due to Enterococcus Status: Acute Altered mental status, acute. -resolved Aspiration Pneumonia (POA) -resolved UTI with Enterococcus faecalis (POA) -resolved Severe hypokalemia (POA) -resolved Leukocytosis (POA) - resolved Rapid weight loss with anorexia -improving Severe protein calorie malnutrition -improving [employer] toxicity (POA) - resolved Dementia (vascular) with behavioral disturbance and increased agitation/ restlessness Major depressive disorder Dysphagia with declining oral intake ability - Procedures Procedures: Date of Exam: 06/09/17 Indication:difficulty swallowing Procedure:FL esophagram Technique: After ingesting air crystals, the patient swallowed thick and thin barium without difficulty. Fluoroscopic imaging was obtained in the upright LPO , upright AP, and upright right lateral positions. Due to the patient's aspiration risk, no supine imaging was obtained. Findings: Findings suggestive of an esophagectomy with esophagogastric anastomosis. The patient's surgical history was confirmed by Dr. Dior. A majority of the existing stomach is located in the thoracic cavity. A small portion of the antrum of the stomach and the duodenal bulb is located below the diaphragm. The remainder of the exam is negative. Esophageal motility through the stomach and into the small bowel appear normal. There is no obvious stricture. There is no extravasation of contrast to suggest a leak. Impression: 1. Esophagectomy. 2. No extravasation of contrast to suggest leak. 3. No obvious stricture is identified. - Laboratory Labs: 06/13/17 04:57 06/13/17 04:57 06/02/17 15:34 Vitamin B12 458 06/02/17 11:40 TSH 3.14 06/02/17 06/06/17 06/11/17 11:40 05:57 04:49 [employer] 3.1 H* 0.6 0.4 L - Microbiology Microbiology 06/02/17 15:38 Peripheral/Iv Start Blood Culture - Final No Growth After 5 Days 06/02/17 15:34 Peripheral/Iv Start Blood Culture - Final No Growth After 5 Days 06/02/17 18:23 Urine, Voided (Cc/notcc) Urine Culture - Final Enterococcus faecalis - Radiology Radiology: Date of Exam: 06/05/17 EXAM: CT head/brain wo con HISTORY: encephalopathy, fall history FINDINGS: No intracranial hemorrhage or acute territorial infarct is evident. Generalized age-related cerebral atrophy is present with periventricular and subcortical areas of low attenuation most consistent with chronic ischemic microvascular disease. No space-occupying mass or shift of midline structures is present. The bony calvaria are intact. The visualized paranasal sinuses and mastoid air cells are clear. The orbital contents are within normal limits. IMPRESSION: 1. No acute intracranial process. 2. Chronic senescent changes of the brain. = = = = = = = = = = = = = = = = = = = = = = = = = = = = = = = = = = = = = = = = = = = = = = = = = = = = = = = = = = = Date of Exam: 06/12/17 INDICATION: F/U infiltrate PROCEDURE: CHEST 2-VIEWS UPRIGHT (PA & LAT) FINDINGS: Right lower lobe airspace consolidation has improved, however there is still significant consolidation in the posterior lower lobes on the lateral view. There is continued interstitial prominence in both mid to lower lung guerra. No pneumothorax. Small pleural effusions. No pneumothorax. Heart size and mediastinal contours are stable. Contrast material in the colon. Impression: Improving basilar pneumonia or aspiration. History of Present Illness HPI: Chris Kiran is a 61-year-old patient of Dr. Garland who has a complex medical history including a history of esophageal cancer. He underwent an esophagectomy in [address] Webster in [place]. Since that time, he has been following closely with Dr. Webster, even since his move to [place]. Since his esophagectomy, Chris developed a large hiatal hernia and it was determined that he needed to have repaired as a significant amount of his intestine and stomach had migrated into his thoracic cavity. He underwent the surgery on 04/26/17 in [place]. Prior to his surgery, his reports that he was very active and functionally independents. He remained hospitalized in [place] for a week following his surgery and discharge home to [place] around 05/03. Since that time, his reports that he has progressively become more debilitated with increased confusion, slurred speech, increased disorientation and increased lethargy. She also reports that he has been refusing to eat, stating that nothing tastes right and expresses significant fear about aspirating as he has had frequent bouts with aspiration pneumonia. She also reports that she has been sleeping significantly more over the past few weeks which she attributes to him refusing to wear his CPAP at night because he "can' t breath" with it on. He follows with Dr. Pablo for his COPD and sleep apnea and recently attempted to undergo a sleep study which he could not complete. He has also been following with Dr. Francis, cardiology, and was most recently seen yesterday, 06/01/17 and told his heart was doing great. Recently he was seen by Dr. Mendoza, urology, due to an elevated PSA. Repeat PSA was improved and no prostate biopsy was performed. On 05/29/17, he underwent a modified barium swallow due to inability to eat and significant weight loss since his surgery ( 162lb prior to surgery, 134 lb on admission). The study revealed trace aspiration with thin consistency barium. He was seen by speech therapy as an outpatient on 05/31/17 and found to be significantly malnourished and dehydrated with significant oropharyngeal dysphagia and at increased risk for aspiration given his lethargy on the exam. Speech recommended that he remain NPO due to his decreased level of consciousness with hopeful advancement to pureed consistency with nectar thickened liquids as a goal in the future. He was encouraged to follow up with his PCP, Dr. Steel, whom he saw this morning, . Due to his decreased level of consciousness and dehydration, Dr. Juárez was consulted and he was initially admitted into observation status. Upon arrival, labs were obtained and revealed leukocytosis (WBC 13.7), anemia (12.1) , hypokalemia (K 2.7), elevated alkaline phosphatase (384), severe protein calorie malnutrition (prealbumin 5.3) and lithium toxicity (lithium 3.1). Chest x-ray revealed basilar airspace disease. Given his pneumonia with leukocytosis and high risk due to his severe protein calorie malnutrition as well as his lithium toxicity, altered mental status and severe hypokalemia, he was changed to inpatient status for close respiratory, cardiovascular and neurologic monitoring, IV hydration, IV potassium supplementation and further evaluation and treatment. His length of stay is expected to be greater than 2 days. Due to his somnolence on exam, the majority of his history was obtained from his , nursing and prior medical records. Objective Vital signs: Temperature 96.5 F L 06/14/17 07:00 Pulse Rate 67 06/14/17 08:14 Respiratory Rate 18 06/14/17 07:00 Blood Pressure 109/64 06/14/17 07:00 Pulse Oximetry 93 06/14/17 07:00 Height/Weight/BMI: Height 1.63 m Weight 68.3 kg Body Mass Index 25.7 - Constitutional Present: no acute distress, well nourished, well developed - Routine HEENT Exam Head: Present: normocephalic, atraumatic - Routine Respiratory Exam Present: CTA bilaterally. Absent: wheezes - Routine Cardiovascular Exam Present: RRR, no murmur - Routine Abdominal Exam Present: soft, non distended, non tender - Routine Extremities Exam Present: no edema, normal capillary refill - Routine Skin Exam Present: dry, warm - Routine Neurological Exam Present: alert, oriented X3 - Routine Lymphatic Exam Lymphatic: Absent: adenopathy - Routine Psychiatric Exam Present: normal affect, cooperative Hospital Course This is a general summary of the patient's hospital course. For more details refer to the complete medical record. Hospital course: Plan - 06/02/17: Admit to inpatient status under the care of Dr. Juárez. Labs obtained on admission - WBC 13.7, Hgb 12.1, K 2.7. CXR revealed pneumonia - blood cultures obtained and pending; lactate 1.3. Monitor closely for signs of sepsis. Rocephin 1g IV daily and Azithromycin 500mg IV daily initiated 06/02/17 for treatment of pneumonia. Potassium boluses x 4 given - monitor electrolytes closely. Monitor cardiac function closely on telemetry. Oxygen as needed to maintain SAO2 >90%. Currently on room air. Does not use oxygen at home. DuoNeb treatments and acapella. Will obtain ABG now given increased lethargy. believes behaviors are secondary to not using his CPAP at night. Speech recommending NPO status given decreased level of consciousness and risk for aspiration. Will hold oral home medications at this time. Significant history of depression. Consider psychiatric consult once mental status improved. Ativan as needed for increased behaviors and air hunger. If mental status does not improve, consider obtaining CT head and/or MRI brain for further evaluation. Will hold lithium given toxicity. Monitor levels. Given anemia and behavior changes, will check B12 level. Will try and obtain UA sample for evaluation. Upon discharge, patient's care will be returned to his PCP, Dr. Steel. 06/03 Continue Rocephin 1g IV daily and Azithromycin 500mg IV daily for treatment of pneumonia. DuoNeb treatments and acapella. Use CPAP. Speech continues to recommend NPO status. NGT to be placed. Start tube feedings. Consult assistant plant controller. Accuchecks q6. Significant history of depression. Consider psychiatric consult once mental status improved. Ativan as needed for increased behaviors and air hunger. Given anemia and behavior changes, will check B12 level. Antibiotics expected to cover UTI. 06/04 Continue Rocephin 1g IV daily and Azithromycin 500mg IV daily for treatment of pneumonia. Speech continues to recommend NPO status. NGT placed and had to be replaced b/c it clogged. Enterococcus being ID'd in urine. Vancomycin x 1. Monitor. d/w Dr. Dior. He recommends enteral feedings and if patient's mental status continues to improve, he will consider further tests. x-ray shows retained barium. Add lactulose to bowel regimen. 06/05 Continue Azithromycin 500mg (day 4/5) IV daily for treatment of pneumonia. D/C Rocephin. Urine culture is positive for Enterococcus Faecalis - Will change to Ampicillin. Could change to PO Macrobid as PO intake improves. Continue with NPO therapeutic, however, patient is more alert today. We will see what speech therapy recommends. Hopeful oral drive will improve. He has been weaned off of oxygen is currently on room air. DuoNeb treatments and acapella. Use CPAP. . Questions if any cerebral event such as a stroke had caused patient's acute encephalopathy. We will obtain a CT scan of the brain to rule out intracranial bleeding or ischemia. Will consult PT and OT to evaluate patients strength. Prior to this acute illness patient was able to ambulate independently at home. We did discuss long-term plan as feels like patient will need further rehabilitation before he can come home independently. Consider IRU for aggressive rehabilitation. 06/06 Discontinue Azithromycin 500mg after today's final dose. Urine culture is positive for Enterococcus Faecalis - continue with Ampicillin. 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 Swallow abilities making slow gains with speech - in discussion with ST today, not sure if swallow ability improved to point of being able to tolerate esophagram. Would hold on IRU discharge until either patient able to maintain oral nutrition on his own, or other feeding modality achieved. Feedings currently Via NG tube - will increase rate from 20cc/hr to 30cc/hr -- goal around 60cc/hr. Hypokalemia- Given 40 MEQ now, will repeat 40 meq at 1700. Then schedule 20 Meq BID. [employer] level decreased to 0.6 - can restart lithium at 300mg nightly (home dose 900mg). CT brain was negative for acute CVA. Encourage work with PT/OT for strengthening. Hopeful for IRU when medically stable. 06/07 Diet upgraded to 6 small meals of pureed with nectar thick liquid. At this point will keep tube feeding at 30ml/hr for added nutrition. Will hopefully be able to decrease tube feedings as PO drive improves. As serum sodium increase to 148, will change IVF to D5W at 40cc/hr. Continue with Ampicillin for urinary coverage. Start bladder retraining. Encourage work with PT/OT for strengthening. Hopeful for IRU when medically stable. 06/08 Strength improving, still very weak but moving more with therapy. Oral intake improving. Tolerating 6 small meals of pureed with nectar thick liquid. Speech checking on calorie count. Continue tube feeding at 30ml/hr for added nutrition. IF Feeding Tube would inadvertently be removed, would leave out at this time. Will oral intake improving, not certain if doing well enough to maintain on his own. My concern with move to IRU at this point is may not have definitive feeding route. Would not want him to decline on IRU prompting readmission. With his prior surgery, uncertain if Feeding Tube would be a viable option. NG tube would limit information obtained from esophagram. Continue with Ampicillin for urinary coverage. Additional oral potassium today at noon as potassium decreased to 3.3. Sodium with decrease to 145 - continue D5W. Will remove Burton cath. Nursing to check post void bladder scans to make sure pt emptying bladder. 06/09 NGT dc'd (became clogged and was not functioning), pt ate 50% of breakfast. Preliminary esophagram repot: No stenosis of the lower esophagus of duodenum!! Barium pass through well. Speech working to increase consistency of food. Unfortunately, with his anatomy, it does not look like feeding tube would be option. Voiding well since Burton was dc'd. K improved to 3.6, Na down to 144. Mg stable. Hgb stable at 9.2. Renal function stable. Continue D5W for now. Give extra dose of KDur since K is still low-normal. Continue Ampicillin for urinary coverage, day #5. 06/10 Continue Ampicillin for urinary coverage, day #6. Oral drive and intake making slow gains. Sodium normalized - will stop IVF and monitor off of fluids. Bowels moving well; will stop routine Lactulose and Miralax. Encourage continued work with therapy. 06/11/17 Continue Ampicillin for urinary coverage, day #7. Oral drive and intake making slow gains. Sodium trending up a bit- suspect that thickened liquids are a factor. Will give one liter of fluid. Potassium level staying consistently normal - will decrease to 20mEq once a day. Encourage continued work with therapy. [employer] level low - will increase lithium to 450mg at night (home dose 900mg) WBC up a bit to 11.7, but afebrile. Continue to monitor for now. 06/12/[address] Pizarro regarding lithium dosage and management of other psychiatric medication. She has recommended [facility] admission for further management. Dr. Pablo consultation. Recommends adding albuterol/ipratropium 3 times a day and using home CPAP and follow-up with him in one month. Continue therapies 06/13/17 DC ampicillin. Has completed >7 day course for UTI. Labs stable. 06/14/17 DC to [facility] today for further management of psychiatric medications. Continue modified diet and smaller meals at night, sitting up for 2-3 hrs after meals and avoid caffeine. When pt is DC'd from [facility], he should start using ipratopium (Rx in paper chart) in addition to his albuterol (already has at home) in his nebulizer three times a day and restart his Advair. Will continue Pulmicort and DuoNeb during his [facility] stay. Follow potassium level. Levels have been ok. Potassium was newly Rx'd during this hospitalization. Will need to provide Rx on DC from [facility] if he continues to require this. Hopefully, with his improved food intake, he will not need to continue potassium supplementation. See Dr. Steel after dismissed from [facility]. Follow up with Dr. Pablo in 1 month to review CPAP readings. Time spent with patient: discharge greater than 30 minutes Resuscitation Status: Full Code Discharge Plan - Discharge Disposition Discharge Date: 06/14/17 Disposition: 63 To [facility] *Condition: Stable Reason For Visit (Visit label in EMR): Encephalopathy, pnuemonia, leukocytosis - Discharge Medications *Discharge Medications: New Albuterol/Ipratropium [Duoneb] 3 ml AEROSOL RTQID each Isosorbide Mononitrate ER [Imdur] 30 mg PO ACB tab [employer] Oral Liq 300 mg PO HS ml PEG 3350 17gm PACKET [Miralax] 17 gm PO DAILY PRN packet PRN Reason: Constipation Potassium Chloride [K-DUR 20 mEq Tablet] 20 meq PO WB tab Acetaminophen [Tylenol] 650 mg PO Q5H PRN tab PRN Reason: Discomfort Budesonide Inhalation [Pulmicort Inhalation] 0.5 mg AEROSOL RTBID vial Continue Gabapentin [Neurontin] 1,200 mg PO HS Tramadol/APAP 37.5/325 [Ultracet] 1 tab PO Q8H PRN PRN Reason: Pain Rosuvastatin Calcium [Crestor] 40 mg PO HS Latanoprost 1 drop EACH EYE HS Multivitamin [One Daily] 1 each PO DAILY Lactobacillus [Culturelle] 1 cap PO DAILY Isosorbide Mononitrate ER [Imdur] 30 mg PO DAILY Modafinil [Provigil] 200 mg PO DAILY Aspirin [Adult Aspirin Regimen] 81 mg PO DAILY Albuterol Sulfate [Proair Hfa] 2 puff INH Q4H PRN PRN Reason: Shortness Of Air Venlafaxine XR [Effexor Xr] 450 mg PO DAILY Fluticasone/Salmeterol 250/50 [Advair 250-50 Diskus] 1 puff INH BID Tamsulosin [Flomax] 0.4 mg PO DAILY Pramipexole Di-HCl [Mirapex] 0.5 mg PO HS Gabapentin [Neurontin] 200 mg PO BID Nitroglycerin 0.4 mg SL Q5M PRN PRN Reason: Chest Pain Pantoprazole Tab [Protonix Tab] 1 tab PO ACB Discontinued Ranitidine [Zantac] 150 mg PO DAILY [employer] Carbonate [[employer] Carbonate] 900 mg PO HS - Discharge Packet/Instructions *Diet: Regular. Regular liquids, chopped meat *Activity: as tolerated *Pain Management/Treatment: n/a *Wound Care: n/a Additional Instructions: Continue modified diet and smaller meals at night, sitting up for 2-3 hrs after meals and avoid caffeine. Follow up with Dr. Pablo in 1 month to review CPAP readings. When you go home from [facility] you should start using ipratopium in addition to your albuterol in your nebulizer three times a day. *Expected Signs/Symptoms: Cotinued improvement *Notify Physician if: Increasing confusion *During Business Hours Contact: Nurse in [facility] Unit *After Business Hours Contact: Nurse in [facility] Unit *Pending Lab/Results: No Pending Lab - Referrals/Follow Up *Referrals/Follow Up: Tyshawn Steel II, MD [Primary Care Provider] - (following dismissal from [facility]) - Patient Handouts Patient Handouts: Leukocytosis (GEN), Pneumonia (GEN), Encephalopathy (GEN) - Dismissal Complete Discharge Instructions are:: Complete Physician Narrative - Narrative Physician: Corazon Walker MD Attestation Narrative: Date: 06/14/17 Time: 5:10 PM-I reviewed this chart, the patient history, and the CADDIE SUPERVISOR's/PA's documented findings as above. We discussed and formulated the assessment and plan as above with the additions below.-Dr. Walker The patient states that he is feeling well. He denies any pain. He is eating and drinking okay. He denies any shortness of breath. He denies any nausea or vomiting. He is urinating without difficulties. He feels that he is getting stronger. On exam he is alert and in no acute distress. Chest is clear to auscultation. Cardiovascular reveals a regular rate and rhythm. Abdomen is soft and nontender. Extremities reveal trace edema. He is pleasant without signs of agitation or anxiety. Mood seems good. Impression and plan The patient was admitted with weight loss, malnutrition, dehydration, encephalopathy and aspiration pneumonia. He also had UTI with enterococcus. He has finished antibiotic treatment for pneumonia and UTI. Currently, he is eating and drinking well. Dehydration has resolved. Pre-albumin is improving. Respiratory status has improved and he is on room air. [employer] toxicity resolved. He was taking multiple psychiatric medications and Dr. Pizarro was consulted for help with his psychiatric medications. She did recommend adjustments in his medications which would require an inpatient stay in [facility]. The patient was transferred today for adjustments in his psychiatric medications. While the patient is in the [facility] unit, we can continue with physical therapy, occupational therapy and speech therapy. We can monitor his oral intake to make sure he is getting adequate nutrition and hydration. He did restart the use of his CPAP for sleep apnea. He had not been tolerating it recently at home. Fortunately, he tolerated it okay last night. He needs to continue using his CPAP at night. Continue on breathing treatments and Acapella recommended by the pulmonology service.
[2017-06-14 10:53] VITALS: RESP 16
[2017-06-14 11:11] VITALS: BP 117/71; PULSE 77; TEMP 95.7; O2SAT 95
== END 2017-06-14 11:50 | DRG 177 ==
LOC: MED → SUATTDRO 15:27
PROVIDERS: ADMIT Hospitalist; ATTEND Internal Medicine

== ENCOUNTER 2017-06-14 13:54 | Inpatient (IN) ==
[2017-06-14] MEDS ORDERED: TRAMADOL/APAP 37.5 MG/325 MG TABLET PO PRN (14:13)
[2017-06-14] MEDS ORDERED: ACETAMINOPHEN 325 MG TABLET PO PRN (14:13)
[2017-06-14] MEDS ORDERED: SENNOSIDES 8.6 MG TABLET PO PRN (14:13)
[2017-06-14] MEDS ORDERED: NITROGLYCERIN 0.4 MG SUBLINGUAL TABLET SL PRN (14:13)
[2017-06-14] MEDS ORDERED: POLYETHYL GLYCOL 3350 17gm PACKET PO PRN (14:13)
[2017-06-14] MEDS ORDERED: BISACODYL 10 MG SUPPOSITORY RECTALLY PRN (14:13)
[2017-06-14 14:24] VITALS: BMI 25.5
--- NOTE | 2017-06-14 14:29 | 24 Hour Neuropsychiatic Eval ---
Date of Admission: 06/14/17 13:54 Chief complaint: Med management after lithium toxicity History of Present Illness: Patient is a 61-year-old retired, male who was transferred to [facility] from the medical floor for med management after presenting several days ago with Li toxicity. Patient was seen by this psychiatrist on medical floor on 06/14. Patient has a hx of vascular dementia (though years of heavy alcohol use also a likely contributor), MDD and was initially admitted to [facility] on 06/02/17 with lithium toxicity (Li level 3.1). Primary team's note at time of admission: "Chris Kiran is a 61-year-old patient of Dr. Garland who has a complex medical history including a history of esophageal cancer. He underwent an esophagectomy in [address] Webster in [place]. Since that time, he has been following closely with Dr. Webster, even since his move to [place]. Since his esophagectomy, Chris developed a large hiatal hernia and it was determined that he needed to have repaired as a significant amount of his intestine and stomach had migrated into his thoracic cavity. He underwent the surgery on 04/26/17 in [place]. Prior to his surgery, his reports that he was very active and functionally independents. He remained hospitalized in [place] for a week following his surgery and discharge home to [place] around 05/03/17. Since that time, his reports that he has progressively become more debilitated with increased confusion, slurred speech, increased disorientation and increased lethargy. She also reports that he has been refusing to eat, stating that nothing tastes right and expresses significant fear about aspirating as he has had frequent bouts with aspiration pneumonia. She also reports that she has been sleeping significantly more over the past few weeks which she attributes to him refusing to wear his CPAP at night because he "can't breath" with it on. He follows with Dr. Pablo for his COPD and sleep apnea and recently attempted to undergo a sleep study which he could not complete. He has also been following with Dr. Francis, cardiology, and was most recently seen yesterday, 06/01/17 and told his heart was doing great. Recently he was seen by Dr. Mendoza, urology, due to an elevated PSA. Repeat PSA was improved and no prostate biopsy was performed. On 05/29/17, he underwent a modified barium swallow due to inability to eat and significant weight loss since his surgery (162lb prior to surgery, 134 lb on admission). The study revealed trace aspiration with thin consistency barium. He was seen by speech therapy as an outpatient on 05/31/17 and found to be significantly malnourished and dehydrated with significant oropharyngeal dysphagia and at increased risk for aspiration given his lethargy on the exam. Speech recommended that he remain NPO due to his decreased level of consciousness with hopeful advancement to pureed consistency with nectar thickened liquids as a goal in the future. He was encouraged to follow up with his PCP, Dr. Steel, whom he saw this morning, 06/02/17. Due to his decreased level of consciousness and dehydration, Dr. Juárez was consulted and he was initially admitted into observation status. Upon arrival, labs were obtained and revealed leukocytosis (WBC 13.7), anemia (12.1), hypokalemia (K 2.7), elevated alkaline phosphatase ( 384), severe protein calorie malnutrition (prealbumin 5.3) and lithium toxicity (lithium 3.1). Chest x-ray revealed basilar airspace disease. Given his pneumonia with leukocytosis and high risk due to his severe protein calorie malnutrition as well as his lithium toxicity, altered mental status and severe hypokalemia, he was changed to inpatient status for close respiratory, cardiovascular and neurologic monitoring, IV hydration, IV potassium supplementation and further evaluation and treatment. His length of stay is expected to be greater than 2 days. Due to his somnolence on exam, the majority of his history was obtained from his , nursing and prior medical records." I spoke with the patient on 06/13, who was able to give me very limited hx due to dementia. He asks that I speak with his Blanche. He describes his mood as "stable" now and says he is not sure what his medication are supposed to be, what past med trials have been, etc. He denies any change in sleep, appetite or energy. He is not able to tell me what happened that he is in the hospital. He denies SI, HI, AVH. He denies hx of symptoms consistent with bipolar d/o but said there were times years ago when he was paranoid. Patient does have a hx of getting ECT, last in ~2002. Patient is fully oriented during interview but did poorly on [employer] ( with 10th grade education). He missed 1 money question, anmed only 11 animals, remembered 2/5 objects, could repeat only 3 numbers backwards, was unable to draw a clock, and missed 3/4 story questions. Patient does state that he used to drink heavily and used cocaine and marijuana, but stopped all of this over 15 years ago. He states a paternal aunt had an unknown type of dementia but denies family hx of mental illness otherwise. He denies any hx of seizures and says he does not know if he's ever had any head injuries. I spoke with patient's Blanche on 06/13 and [id number] Mounika Chaney, who is a psychologist in [place] and was very helpful in regards to hx. Apparently patient was receiving psychiatric care from [facility] in [facility]. He and his relocated here in May 2016 and he periodically travelled back for psychiatric care, last seen in October 2016. He then established care here with [facility] Vanegas on 05/25/17 seeing Dell Bautista. At that appointment, Dell continued patient's previous medications ([place] 900mg at HS, Effexor XR 450mg PO daily, mirtazapine 15mg PO q HS). Per , she had taken patient's past Li levels to this appointment and Dell reviewed them and stated he did not need lithium levels currently. Per and mother-in -law, symptoms as above had started prior to this appointment with Dell. stated patient was sleeping through much of interview that day and was very confused, agitated/violent at home, and sleeping all the time. They had reportedly gone to a trouble shooter and renal technician the same week trying to figure out what was wrong. Patient was admitted to [facility] ~4 days later. Per family, patient is a recovering alcoholic but has been sober for many years as reported. He last got ECT in [id number]. He was diagnosed with vascular dementia s/p stroke in ~2003 (by neurologist in [facility] Family denied hx of symptoms consistent with bipolar disorder when questioned in depth though said he would go from "pleasant and happy to 'you're going to '" in the days just before this admission (likely delirium). thinks modafinil may have been started by psychiatrist in [place]. She agrees to bring all records that she has for review. Patient also had an esophagectomy in [place] on 04/26/17 nd family says he was doing well shortly after surgery then once he got home, began having difficulty walking, talking, was more confused, and had lost a significant amount of weight since that time (~30 lb). I recommended decreasing Li to 300mg PO q HS last night. I spoke with patient again today who said his mood was "okay" and he felt well physically. He continued to deny any SI, HI, AVH. Blanche was unable to find records she thought she had, so will request them from [facility]. Discussed treatment plan with Blanche and she is in agreement. Dementia: Memory Impairment, Poor Executive Functioning [facility] Patient Stated Medical History Cerebrovascular Accident Yes Dementia Yes Peripheral Neuropathy Yes: legs Dental Problems Yes: dentures doesnt wear Dysphagia Yes Glaucoma Yes Hearing Loss Yes: no hearing aides Coronary Artery Disease Yes Myocardial Infarction Yes Chronic Obstructive Pulmonary Yes Disease (COPD) Pneumonia Yes Sleep Apnea Yes: uses c pap Diabetes Mellitus Type 2 Yes Cirrhosis Yes Gastroesophageal Reflux Yes Disease Hiatal Hernia Yes Clotting Problems Yes: unknown had been on plavix Blood Transfusions Yes Depression Yes Medical History Updates: CAD. Hypertension. Hyperlipidemia. Dibetes mellitus , type II. Diabetic neuropathy. COPD. Sleep apnea with home CPAP. Vascular dementia. GERD. Dysphagia. Chronic pain. Chronic anemia. Severe depression with prior ECT treatments - 2002. History of alcohol abuse. History of esophageal cancer and Philippe's esophagus. Questionable history of CVA - 2003. Prior suicidial attempt - 2002. Surgical History: Major hiatal hernia repair - removing abdomonal structures from thoracic cavity - 04/26/2017 (Dr. Webster - [place]). Esophagectomy - 1991 (Dr. Eleanor [place]). Appendectomy. 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 Absent: hallucinations, paranoia, suicidal ideation Mental Status Exam Height: 1.63 m Weight: 67.5 kg - Mental Status Exam Muscle Strength/Tone: Normal Dressing: Casual Grooming: Fair Attitude: Cooperative Motor Activity: Retardation, Tremors (slight) Eye Contact: Good Speech: Slowed Volume: Soft Rhythm: Appropriate Rhythm Sensory: Alert Orientation: Oriented X4 Mood: Neutral Affect: Blunted Rate of Thoughts: Delayed Thought Organization: Organized, [place] Associations: Intact Abstract Reasoning: Poor abstract reasoning Thought Content: Normal Perception/Psychotic: Perception Normal Language: Other (some naming impairment) Fund of Knowledge: Other (decreased, SLU[employer] on 06/13) Memory: Poor-recent Suicidal Ideation: Denies Homicidal Ideation: Denies Insight: Impaired Judgement: Impaired Impulse Control: Good Assessment and Plan (1) Major neurocognitive disorder Problem details: Moderate, mixed etiology likely (vascular + alcohol dementia) Current visit: No Status: Acute (2) [place] toxicity Current visit: No Status: Resolved (3) History of depression Current visit: No Status: Chronic (4) COPD (chronic obstructive pulmonary disease) Current visit: No Status: Acute (5) Obstructive sleep apnea Current visit: No Status: Acute (6) Severe protein-calorie malnutrition Current visit: No Status: Acute Admit to [facility] for psychiatric med management as it cannot safely be done on an outpatient basis; discussed with family and o/p provider who are in agreement with plan. Maintain safety and elopement precautions. For today, will decrease lithium to 150mg PO q HS, decrease gabapentin to 900mg PO q HS, decrease Effexor XR to 300mg PO q AM. Will likely taper modafinil in future. Monitor mood, behavior and response to treatment. Will also check Vitamin B12, folate levels and thyroid. Have consulted hospitalist for optimization of medical comorbidities. Monitor mood, behavior and response to treatment.
[2017-06-14] MEDS: ALBUTEROL/IPRATROPIUM 2.5mg-0.5mg/3ml NEB AEROSOL SCH ×2 (15:50→20:35)
[2017-06-14] MEDS: GABAPENTIN 100 MG CAPSULE PO SCH (15:59)
[2017-06-14] MEDS: GABAPENTIN 300 MG CAPSULE PO SCH (20:18)
[2017-06-14] MEDS: PRAMIPEXOLE 0.5 MG TABLET PO SCH (20:19)
[2017-06-14] MEDS: LATANOPROST 0.005% EYE DROPS 2.5ml EACH EYE SCH (20:20)
[2017-06-14] MEDS: ROSUVASTATIN 20 MG TABLET PO SCH (20:21)
[2017-06-14] MEDS: BUDESONIDE INH.SOLN 0.5mg/2ml NEB AEROSOL SCH (20:35)
[2017-06-14] MEDS ORDERED: LITHIUM CITRATE PO SCH ×2 (21:00)
[2017-06-14] MEDS ORDERED: GABAPENTIN 600 MG TABLET PO SCH (21:00)
[2017-06-15] MEDS: ISOSORBIDE MONONITRATE ER 30 MG TABLET PO SCH (06:12)
[2017-06-15] MEDS: PANTOPRAZOLE 40 MG TABLET PO SCH (06:12)
[2017-06-15] MEDS: GABAPENTIN 100 MG CAPSULE PO SCH ×2 (08:49→15:17)
[2017-06-15] MEDS: TAMSULOSIN 0.4 MG CAPSULE PO SCH (08:49)
[2017-06-15] MEDS: ASPIRIN *EC* 81 MG TABLET PO SCH (08:50)
[2017-06-15] MEDS ORDERED: MODAFINIL 100 MG TABLET PO SCH (09:00)
[2017-06-15] MEDS: ALBUTEROL/IPRATROPIUM 2.5mg-0.5mg/3ml NEB AEROSOL SCH ×4 (09:50→20:41)
[2017-06-15] MEDS: BUDESONIDE INH.SOLN 0.5mg/2ml NEB AEROSOL SCH ×2 (10:40→20:41)
--- NOTE | 2017-06-15 11:13 | History & Physical Report ---
History of Present Illness Date: 06/15/17 Chief complaint: He has no complaints HPI: Chris Kiran was hospitalized on the acute side from 06/02/17 through 06/14/17. He was admitted for pneumonia and lithium toxicity, altered mental status and severe hypokalemia. He received Rocephin and azithromycin for pneumonia. His electrolytes were replaced and corrected. In addition, his urine culture later grew out enterococcus and antibiotics were adjusted to ampicillin. He had significant problems with dysphagia and for the first several days. [place] was able to be resumed on 06/06/17. Speech therapy recommended nothing by mouth therapeutic diet. By 06/07/17, he was able to tolerate pured and nectar thick liquids. He received nutrition via NG tube until 06/09/17, when his NG tube was discontinued. An esophagram on that day revealed no esophageal stenosis and his diet was advanced. Dr. Pablo was consulted and recommended adding DuoNeb 3 times a day and using home CPAP. Dr. Pizarro was consulted and recommended admission to [facility] ([place], [place]) because of the complicated nature of his medication regimen and lithium toxicity. Chris was seen in the morning of 06/15/17 after breakfast. He was doing well, and denied any complaints whatsoever. His review of systems was entirely negative. He ambulated with a walker, but at times would only use one hand on the walker. His gait was steady. Nursing staff denied any new concerns. Review of Systems ROS unobtainable: other (DEMENTIA) All systems PM: 10-point ROS was reviewed, no additional remarkable complaints except Past Medical History Medical History Updates: CAD. Hypertension. Hyperlipidemia. Dibetes mellitus , type II. Diabetic neuropathy. COPD. Sleep apnea with home CPAP. Vascular dementia. GERD. Dysphagia. Chronic pain. Chronic anemia. Severe depression with prior ECT treatments - 2002. History of alcohol abuse. History of esophageal cancer and Philippe's esophagus. Questionable history of CVA - 2003. Prior suicide attempt - 2002. Surgical History: Major hiatal hernia repair - removing abdomonal structures from thoracic cavity - 04/26/2017 (Dr. Eleanor [facility]). Esophagectomy - 1991 (Dr. Eleanor [facility]). Appendectomy. Family History: Unable to Obtain - Social History Smoking status: Former smoker Substance use type: marijuana Current residence: Apartment/Private Home Medications Home Medications Medication Instructions Recorded Confirmed Type Albuterol Sulfate [Proair Hfa] 2 puff INH Q4H PRN 06/02/17 06/02/17 History Aspirin [Adult Aspirin Regimen] 81 mg PO DAILY 06/02/17 06/02/17 History Fluticasone/Salmeterol 250/50 1 puff INH BID 06/02/17 06/02/17 History [Advair 250-50 Diskus] Gabapentin [Neurontin] 1,200 mg PO HS 06/02/17 06/02/17 History Gabapentin [Neurontin] 200 mg PO BID 06/02/17 06/02/17 History Isosorbide Mononitrate ER [Imdur] 30 mg PO DAILY 06/02/17 06/02/17 History Lactobacillus [Culturelle] 1 cap PO DAILY 06/02/17 06/02/17 History Latanoprost 1 drop EACH EYE HS 06/02/17 06/02/17 History Modafinil [Provigil] 200 mg PO DAILY 06/02/17 06/02/17 History Multivitamin [One Daily] 1 each PO DAILY 06/02/17 06/02/17 History Nitroglycerin 0.4 mg SL Q5M PRN 06/02/17 06/02/17 History Pantoprazole Tab [Protonix Tab] 1 tab PO ACB 06/02/17 06/02/17 History Pramipexole Di-HCl [Mirapex] 0.5 mg PO HS 06/02/17 06/02/17 History Rosuvastatin Calcium [Crestor] 40 mg PO HS 06/02/17 06/02/17 History Tamsulosin [Flomax] 0.4 mg PO DAILY 06/02/17 06/02/17 History Tramadol/APAP 37.5/325 [Ultracet] 1 tab PO Q8H PRN 06/02/17 06/02/17 History Venlafaxine XR [Effexor Xr] 450 mg PO DAILY 06/02/17 06/02/17 History Acetaminophen [Tylenol] 650 mg PO Q5H PRN tab 06/14/17 Rx Albuterol/Ipratropium [Duoneb] 3 ml AEROSOL RTQID each 06/14/17 Rx Budesonide Inhalation [Pulmicort 0.5 mg AEROSOL RTBID vial 06/14/17 Rx Inhalation] Isosorbide Mononitrate ER [Imdur] 30 mg PO ACB tab 06/14/17 Rx [place] Oral Liq 300 mg PO HS ml 06/14/17 Rx PEG 3350 17gm PACKET [Miralax] 17 gm PO DAILY PRN packet 06/14/17 Rx Potassium Chloride [K-DUR 20 mEq 20 meq PO WB tab 06/14/17 Rx Tablet] Allergies Allergy/AdvReac Type Severity Reaction Status Date / Time No Known Allergies Allergy Verified 06/02/17 12:13 Exam Vital Signs: Temperature 97.2 F 06/15/17 08:00 Pulse Rate 80 06/15/17 08:00 Respiratory Rate 16 06/15/17 08:00 Blood Pressure 95/63 06/15/17 08:00 Pulse Oximetry 99 06/15/17 08:00 Height/Weight/BMI: Height 1.63 m Weight 67.5 kg Body Mass Index 25.5 - Constitutional Present: no acute distress, well nourished, well developed, thin - Routine HEENT Exam Head: Present: normocephalic Eye: Present: PERRL. Absent: conjunctival icterus, scleral injection - Routine Neck Exam Present: supple. Absent: lymphadenopathy - Routine Respiratory Exam Present: CTA bilaterally - Routine Cardiovascular Exam Present: RRR, S1, S2 - Routine Abdominal Exam Present: soft, normoactive bowel sounds, non distended, non tender - Routine Extremities Exam Present: no edema, pulses intact - Routine Back/Spine/Pelvis Exam Back/Spine: Present: full ROM - Routine Skin Exam Present: intact, dry, warm - Routine Neurological Exam Present: alert, moving all extremities, vision grossly intact, hearing grossly intact, normal speech. Absent: motor deficit, facial asymmetry - Routine Psychiatric Exam Present: cooperative Results - Labs CBC & Chem 7: 06/14/17 15:53 06/14/17 15:53 Assessment and Plan Assessment and Plan: ASSESSMENT Altered mental status, acute. Aspiration Pneumonia (POA) -resolved UTI with Enterococcus faecalis (POA) -resolved Severe hypokalemia (POA) -resolved Leukocytosis (POA) - resolved Rapid weight loss with anorexia -improving Severe protein calorie malnutrition -improving [place] toxicity (POA) - resolved Dementia (vascular) with behavioral disturbance and increased agitation/ restlessness CAD. Hypertension. Hyperlipidemia. Diabetes mellitus, type II. Diabetic neuropathy. COPD. Sleep apnea with home CPAP. GERD. Dysphagia. Chronic pain. Chronic anemia. Severe depression with prior ECT treatments - 2002. History of alcohol abuse. History of esophageal cancer and Philippe's esophagus. Questionable history of CVA - 2003. Prior suicide attempt - 2002. PLAN Follow potassium levels. Potassium level was 3.9 on arrival to [facility]. Continue KDur. Iron level was low at 47, will start ferrous sulfate plus vitamin C. Continue modified diet and smaller meals at night. Sit up for 2-3 hours after meals and avoid caffeine. If GERD symptoms are not adequately controlled on PPI, may resume ranitidine, as he used to take this at home. There is a prescription for ipratropium on the chart when he is ready for discharge. He should use this in addition to albuterol nebulized 3 times per day. Encourage CPAP use. Follow-up with Dr. Pablo in 1 month to review CPAP readings. Psychiatric management per attending. GI Prophylaxis: Protonix Resuscitation Status: Full Code - Physician Narrative Physician: Thania Jiménez MD Narrative: Date: 06/15/17 Time:1644 Mr. Kiran was interviewed and examined by me. He denies any complaints to me. He is resting comfortably in bed. Physical Exam: Gen: alert, NAD Skin: warm and dry HEENT: NC/AT PERRL, EOMI, Sclera, lids and conjunctiva wnl. MMM. OP clear. Neck: No JVD, Carotids 2+ without bruits Lungs: clear. No rales, rhonchi or wheezes CV: regular. No murmur, rub or gallop Abd: soft. +BS. NT/ND MS: No edema. Good strength and ROM Neuro: No focal deficits Psy: Appropriate mood and affect ASSESSMENT/PLAN: Altered mental status, acute. -Admitted to [facility] Aspiration Pneumonia -resolved UTI with Enterococcus faecalis -resolved Severe hypokalemia -resolved -Follow potassium levels. Potassium level was 3.9 on arrival to [facility]. Continue KDur. Leukocytosis -resolved Rapid weight loss with anorexia and associated severe protein calorie malnutrition -improving -Encourage po intake [place] toxicity -resolved -restarting per psych Dementia -On Effexor CAD -Stable -On ASA, Imdur Hypertension -Low normal readings. follow -Only on Imdur Hyperlipidemia -On crestor Diabetes mellitus, type II. -Not on any medications Diabetic neuropathy. -On gabapentin COPD -On budesonide -Duonebs Sleep apnea -CPAP at night -Follow up with Dr. Pablo in a month GERD -On protonix -May consider adding ranitidine if needed -Sit upright for 2-3 hours after eating -No caffeine Dysphagia -Modified diet -Small meals -Chin tuck for swallowing Chronic pain -tramadol ordered Chronic anemia -Iron level was low at 47, will start ferrous sulfate plus vitamin C Severe depression -H/O prior ECT treatments - 2002. History of alcohol abuse. History of esophageal cancer and Philippe's esophagus. -PPI Questionable history of CVA - 2003. -On ASA and statin Prior suicide attempt - 2002. I have independently interviewed and examined the patient. I have reviewed his labs and prior notes. My documentation is noted above. Agree with THIOKOL OPERATOR assessment and plan Hospital Course Summary Disclaimer: The visit summary below is not to be considered part of the above Progress Note. Hospital Course: 06/15/17 Follow potassium levels. Potassium level was 3.[address] [facility] ([place], [place]). Continue KDur. Iron level was low at 47, will start ferrous sulfate plus vitamin C. Continue modified diet and smaller meals at night. Sit up for 2-3 hours after meals and avoid caffeine. If GERD symptoms are not adequately controlled on PPI, may resume ranitidine, as he used to take this at home. There is a prescription for ipratropium on the chart when he is ready for discharge. He should use this in addition to albuterol nebulized 3 times per day. Encourage CPAP use. Follow-up with Dr. Pablo in 1 month to review CPAP readings. Psychiatric management per attending.
--- NOTE | 2017-06-15 12:14 | Neuropsych Progress Note ---
Generations Subjective Date: 06/16/17 - Sujective/Severity of Illness Medications: Acetaminophen (Tylenol) 650 mg PO Q5H PRN PRN Reason: Discomfort Albuterol/Ipratropium (Duoneb) 3 ml AEROSOL RTQID [facility] Last Admin: 06/15/17 10:40 Dose: 3 ml Aspirin (Ecotrin) 81 mg PO DAILY [facility] Last Admin: 06/15/17 08:50 Dose: 81 mg Bisacodyl (Dulcolax) 10 mg RECTALLY DAILY PRN PRN Reason: Constipation Budesonide (Pulmicort Inhalation) 0.5 mg AEROSOL RTBID [facility] Last Admin: 06/15/17 10:40 Dose: 0.5 mg Gabapentin (Neurontin) 200 mg PO 0900,1500 [facility] Last Admin: 06/15/17 08:49 Dose: 200 mg Gabapentin (Neurontin) 900 mg PO HS [facility] Last Admin: 06/14/17 20:18 Dose: 900 mg Isosorbide Mononitrate (Imdur) 30 mg PO ACB [facility] Last Admin: 06/15/17 06:12 Dose: 30 mg Latanoprost (Xalatan) 1 drops EACH EYE [facility] Last Admin: 06/14/17 20:20 Dose: 1 drops [place] Citrate ([place] Oral Liq) 150 mg PO [facility] Last Admin: 06/14/17 20:19 Dose: 150 mg Magnesium Hydroxide (Mom) 30 ml PO DAILY PRN PRN Reason: Constipation Modafinil (Provigil) 200 mg PO DAILY [facility] Last Admin: 06/15/17 09:10 Dose: 200 mg Nitroglycerin (Nitrostat) 0.4 mg SL Q5M PRN PRN Reason: Chest pain Pantoprazole Sodium (Protonix Tab) 40 mg PO ACB [facility] Last Admin: 06/15/17 06:12 Dose: 40 mg Polyethylene Glycol (Miralax) 17 gm PO DAILY PRN Potassium Chloride (K-Dur 20 Meq Tablet) 20 meq PO WB [facility] Last Admin: 06/15/17 08:49 Dose: 20 meq Pramipexole Dihydrochloride (Mirapex) 0.5 mg PO [facility] Last Admin: 06/14/17 20:19 Dose: 0.5 mg Rosuvastatin Calcium (Crestor) 40 mg PO [facility] Last Admin: 06/14/17 20:21 Dose: 40 mg Senna (Senna Lax) 17.2 mg PO HS PRN PRN Reason: Constipation Tamsulosin HCl (Flomax) 0.4 mg PO DAILY [facility] Last Admin: 06/15/17 08:49 Dose: 0.4 mg Tramadol/Acetaminophen (Ultracet) 1 tab PO Q8H PRN PRN Reason: Pain Venlafaxine HCl (Effexor Xr) 300 mg PO WB [facility] Last Admin: 06/15/17 08:50 Dose: 300 mg Subjective: Patient seen and chart reviewed. Case discussed with treatment team. On interview, patient states that his mood is "alright, raulito medium" but that he is feeling well physically since medication changes. Patient denies any SI, HI or AVH. Patient denies any adverse side effects related to psychotropic medications. Nursing staff report patient has been pleasant and cooperative, with no behavioral difficulties on the unit. Patient has been adherent with medications. Patient slept 7.5 hours overnight. VSS. Patient is eating well. Psychotropic PRNs required in the past 24 hours: none. Start Time: 11:00 Stop Time: 11:20 Mental Status Exam Vitals: Last Vital Signs Temp 97.2 F 06/15/17 08:00 Pulse 80 06/15/17 08:00 Resp 16 06/15/17 10:40 BP 95/63 06/15/17 08:00 Pulse Ox 97 06/15/17 10:40 Height: 1.63 m Weight: 67.5 kg - Mental Status Exam Muscle Strength/Tone: Normal Dressing: Casual Grooming: Fair Attitude: Cooperative Motor Activity: Retardation, Tremors (slight) Eye Contact: Good Speech: Slowed Volume: Soft Rhythm: Appropriate Rhythm Orientation: Oriented X4 Mood: Neutral Affect: Relaxed Rate of Thoughts: Delayed Thought Organization: Organized, [place] Associations: Intact Abstract Reasoning: Poor abstract reasoning Thought Content: Normal Perception/Psychotic: Perception Normal Language: Other (some naming impairment) Fund of Knowledge: Other (decreased, SLUMS on 06/13) Memory: Poor-recent Suicidal Ideation: Denies Homicidal Ideation: Denies Insight: Impaired Judgement: Impaired Impulse Control: Good - Laboratory Result Diagrams: 06/14/17 15:53 06/14/17 15:53 Laboratory Results - last 24 hr 06/14/17 06/14/17 06/15/17 15:53 15:53 06:16 WBC 6.2 RBC 3.37 L Hgb 9.4 L Hct 30.5 L MCV 90.5 MCH 27.9 MCHC 30.8 L RDW Std Deviation 45.5 Plt Count 399 MPV 9.2 L Immature Gran % (Auto) 0.3 Neut % (Auto) 74.8 H Lymph % (Auto) 16.3 L Mcpherson % (Auto) 4.1 Eos % (Auto) 3.7 Baso % (Auto) 0.8 Neut # (Auto) 4.6 Lymph # (Auto) 1.0 Mcpherson # (Auto) 0.3 Eos # (Auto) 0.2 Baso # (Auto) 0.1 Abs Immat Gran (auto) 0.02 Turbidity < 20 Sodium 142 Potassium 3.9 Chloride 104 Carbon Dioxide 29 Anion Gap 9 BUN 5.0 L Creatinine 0.6 L GFR Calculation 136 BUN/Creatinine Ratio 8 Glucose 104 Glucometer 66 Calculated Osmolality 270 Calcium 8.8 Icterus Index < 2 TSH 3.73 Specimen Hemolysis < 15 06/15/17 06:41 WBC RBC Hgb Hct MCV MCH MCHC RDW Std Deviation Plt Count MPV Immature Gran % (Auto) Neut % (Auto) Lymph % (Auto) Mcpherson % (Auto) Eos % (Auto) Baso % (Auto) Neut # (Auto) Lymph # (Auto) Mcpherson # (Auto) Eos # (Auto) Baso # (Auto) Abs Immat Gran (auto) Turbidity Sodium Potassium Chloride Carbon Dioxide Anion Gap BUN Creatinine GFR Calculation BUN/Creatinine Ratio Glucose Glucometer 122 Calculated Osmolality Calcium Icterus Index TSH Specimen Hemolysis Assessment and Plan (1) Major neurocognitive disorder Problem details: Moderate, 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 Monitor mood, behavior and response to treatment. Hospital Course Summary Disclaimer: The visit summary below is not to be considered part of the above Progress Note. Hospital Course: On admission to [facility] [place], decreased lithium to 300mg PO q HS. 4/19/18 Psych: Decrease lithium to 75mg PO q HS, decreased Effexor XR to 300mg PO daily, decreased modafinil to 150mg PO q HS. Monitor mood, behavior and response to treatment.
[2017-06-15] MEDS: LITHIUM CITRATE PO SCH ×2 (16:24→20:21)
[2017-06-15] MEDS: MODAFINIL 100 MG TABLET PO SCH (16:24)
[2017-06-15] MEDS: LATANOPROST 0.005% EYE DROPS 2.5ml EACH EYE SCH (20:20)
[2017-06-15] MEDS: GABAPENTIN 300 MG CAPSULE PO SCH (20:20)
[2017-06-15] MEDS: PRAMIPEXOLE 0.5 MG TABLET PO SCH (20:22)
[2017-06-15] MEDS: ROSUVASTATIN 20 MG TABLET PO SCH (20:22)
[2017-06-16] MEDS: PANTOPRAZOLE 40 MG TABLET PO SCH (05:43)
[2017-06-16] MEDS: ISOSORBIDE MONONITRATE ER 30 MG TABLET PO SCH (05:43)
[2017-06-16] MEDS: BUDESONIDE INH.SOLN 0.5mg/2ml NEB AEROSOL SCH ×2 (07:45→20:06)
[2017-06-16] MEDS: ALBUTEROL/IPRATROPIUM 2.5mg-0.5mg/3ml NEB AEROSOL SCH ×4 (07:45→20:06)
[2017-06-16] MEDS: FERROUS SULFATE 324 MG TABLET PO SCH (09:16)
[2017-06-16] MEDS: ASCORBIC ACID 500 MG TABLET PO SCH (09:17)
[2017-06-16] MEDS: MODAFINIL 100 MG TABLET PO SCH (09:17)
[2017-06-16] MEDS: GABAPENTIN 100 MG CAPSULE PO SCH ×2 (09:17→14:42)
[2017-06-16] MEDS: ASPIRIN *EC* 81 MG TABLET PO SCH (09:17)
[2017-06-16] MEDS: TAMSULOSIN 0.4 MG CAPSULE PO SCH (09:18)
--- NOTE | 2017-06-16 13:19 | Neuropsych Progress Note ---
Generations Subjective Date: 06/16/17 - Sujective/Severity of Illness Medications: Acetaminophen (Tylenol) 650 mg PO Q5H PRN PRN Reason: Discomfort Albuterol/Ipratropium (Duoneb) 3 ml AEROSOL RTQID [facility] Last Admin: 06/16/17 11:08 Dose: 3 ml Ascorbic Acid (Vitamin C) 500 mg PO DAILY [facility] Last Admin: 06/16/17 09:17 Dose: 500 mg Aspirin (Ecotrin) 81 mg PO DAILY [facility] Last Admin: 06/16/17 09:17 Dose: 81 mg Bisacodyl (Dulcolax) 10 mg RECTALLY DAILY PRN PRN Reason: Constipation Budesonide (Pulmicort Inhalation) 0.5 mg AEROSOL RTBID [facility] Last Admin: 06/16/17 07:45 Dose: 0.5 mg Ferrous Sulfate (Feosol) 324 mg PO [facility] Last Admin: 06/16/17 09:16 Dose: 324 mg Gabapentin (Neurontin) 200 mg PO 0900,1500 [facility] Last Admin: 06/16/17 09:17 Dose: 200 mg Gabapentin (Neurontin) 900 mg PO [facility] Last Admin: 06/15/17 20:20 Dose: 900 mg Isosorbide Mononitrate (Imdur) 30 mg PO ACB [facility] Last Admin: 06/16/17 05:43 Dose: 30 mg Latanoprost (Xalatan) 1 drops EACH EYE [facility] Last Admin: 06/15/17 20:20 Dose: 1 drops [place] Citrate ([place] Oral Liq) 75 mg PO [facility] Last Admin: 06/15/17 20:21 Dose: 75 mg Magnesium Hydroxide (Mom) 30 ml PO DAILY PRN PRN Reason: Constipation Modafinil (Provigil) 150 mg PO DAILY [facility] Last Admin: 06/16/17 09:17 Dose: 150 mg Nitroglycerin (Nitrostat) 0.4 mg SL Q5M PRN PRN Reason: Chest pain Pantoprazole Sodium (Protonix Tab) 40 mg PO ACB [facility] Last Admin: 06/16/17 05:43 Dose: 40 mg Polyethylene Glycol (Miralax) 17 gm PO DAILY PRN Potassium Chloride (K-Dur 20 Meq Tablet) 20 meq PO [facility] Last Admin: 06/16/17 09:16 Dose: 20 meq Pramipexole Dihydrochloride (Mirapex) 0.5 mg PO HS [facility] Last Admin: 06/15/17 20:22 Dose: 0.5 mg Rosuvastatin Calcium (Crestor) 40 mg PO HS [facility] Last Admin: 06/15/17 20:22 Dose: 40 mg Senna (Senna Lax) 17.2 mg PO HS PRN PRN Reason: Constipation Tamsulosin HCl (Flomax) 0.4 mg PO DAILY [facility] Last Admin: 06/16/17 09:18 Dose: 0.4 mg Tramadol/Acetaminophen (Ultracet) 1 tab PO Q8H PRN PRN Reason: Pain Venlafaxine HCl (Effexor Xr) 300 mg PO WB [facility] Last Admin: 06/16/17 09:16 Dose: 300 mg Subjective: Patient seen and chart reviewed. Case discussed with treatment team. On interview, patient states that his mood is "alright" but that he is feeling well physically since medication changes. He endorses "some depression" due to being in the hospital and he describes this as "things seem to be slower." Patient does not appear depressed subjectively. He states overall he feels much better than his initial admission to the hospital. He states he slept well but his energy is "blah" -- may be related to decrease in Effexor, modafinil. He is less delayed than on initial interview. Patient denies any SI, HI or AVH. Patient denies any adverse side effects related to psychotropic medications. Nursing staff report patient has been pleasant and cooperative, with no behavioral difficulties on the unit. He tends to isolate in his room at times. Patient has been adherent with medications. Patient slept 8.25 hours overnight. VSS. Patient is eating well. Psychotropic PRNs required in the past 24 hours: none. Start Time: 10:00 Stop Time: 10:20 Mental Status Exam Vitals: Last Vital Signs Temp 96.9 F 06/16/17 08:00 Pulse 84 06/16/17 08:00 Resp 18 06/16/17 11:08 BP 96/63 06/16/17 08:00 Pulse Ox 98 06/16/17 11:08 Height: 1.63 m Weight: 67.5 kg - Mental Status Exam Muscle Strength/Tone: Normal Dressing: Casual Grooming: Good Attitude: Cooperative Motor Activity: Normal Eye Contact: Good Speech: Normal Volume: Soft Rhythm: Appropriate Rhythm Sensory: Alert Orientation: Disoriented to time (06/24/17), Oriented to person, Oriented to place Mood: Neutral Affect: Relaxed Rate of Thoughts: Delayed (improved from admission) Thought Organization: Organized, [place] Associations: Intact Abstract Reasoning: Poor abstract reasoning Thought Content: Normal Perception/Psychotic: Perception Normal Language: Other (some naming impairment) Fund of Knowledge: Other (decreased, SLUMS on 06/13) Memory: Poor-recent Suicidal Ideation: Denies Homicidal Ideation: Denies Insight: Impaired Judgement: Impaired Impulse Control: Good - Laboratory Result Diagrams: 06/14/17 15:53 06/14/17 15:53 Laboratory Results - last 24 hr 06/14/17 06/16/17 15:53 06:51 Hemoglobin A1c 5.2 Triglycerides 125 Cholesterol 121 L LDL Cholesterol, Calc 62.0 L VLDL Cholesterol 25.0 HDL Cholesterol 34 L Cholesterol/HDL Ratio 3.6 Vitamin B12 729 Folate 5.2 Assessment and Plan (1) Major neurocognitive disorder Problem details: Moderate, 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 Monitor mood, behavior and response to treatment over the weekend. Hospital Course Summary Disclaimer: The visit summary below is not to be considered part of the above Progress Note. Hospital Course: On admission to [facility] [place], decreased lithium to 300mg PO q HS. 06/15/17 Psych: Decrease lithium to 75mg PO q HS, decreased Effexor XR to 300mg PO daily, decreased modafinil to 150mg PO q HS. Monitor mood, behavior and response to treatment. 06/16/17 Psych: Continue the following medication changes: Discontinue lithium, decrease modafinil to 100mg PO daily, decrease pramipexole to 0.25mg PO q HS. Monitor mood, behavior and response to treatment over the weekend.
[2017-06-16] MEDS: GABAPENTIN 300 MG CAPSULE PO SCH (20:44)
[2017-06-16] MEDS: PRAMIPEXOLE 0.25 MG TABLET PO SCH (20:44)
[2017-06-16] MEDS: LATANOPROST 0.005% EYE DROPS 2.5ml EACH EYE SCH (20:44)
[2017-06-16] MEDS: ROSUVASTATIN 20 MG TABLET PO SCH (20:44)
[2017-06-17] MEDS: PANTOPRAZOLE 40 MG TABLET PO SCH (05:42)
[2017-06-17] MEDS: ISOSORBIDE MONONITRATE ER 30 MG TABLET PO SCH (05:42)
[2017-06-17] MEDS: ALBUTEROL/IPRATROPIUM 2.5mg-0.5mg/3ml NEB AEROSOL SCH ×4 (07:35→20:45)
[2017-06-17] MEDS: BUDESONIDE INH.SOLN 0.5mg/2ml NEB AEROSOL SCH ×2 (07:35→20:45)
[2017-06-17] MEDS: GABAPENTIN 100 MG CAPSULE PO SCH ×2 (08:31→14:39)
[2017-06-17] MEDS: ASPIRIN *EC* 81 MG TABLET PO SCH (08:31)
[2017-06-17] MEDS: FERROUS SULFATE 324 MG TABLET PO SCH (08:31)
[2017-06-17] MEDS: ASCORBIC ACID 500 MG TABLET PO SCH (08:31)
[2017-06-17] MEDS: TAMSULOSIN 0.4 MG CAPSULE PO SCH (08:32)
[2017-06-17] MEDS: MODAFINIL 100 MG TABLET PO SCH (09:00)
--- NOTE | 2017-06-17 15:09 | Neuropsych Progress Note ---
Generations Subjective Date: 06/17/17 - Sujective/Severity of Illness Medications: Acetaminophen (Tylenol) 650 mg PO Q5H PRN PRN Reason: Discomfort Albuterol/Ipratropium (Duoneb) 3 ml AEROSOL RTQID [facility] Last Admin: 06/17/17 11:30 Dose: 3 ml Ascorbic Acid (Vitamin C) 500 mg PO DAILY [facility] Last Admin: 06/17/17 08:31 Dose: 500 mg Aspirin (Ecotrin) 81 mg PO DAILY [facility] Last Admin: 06/17/17 08:31 Dose: 81 mg Bisacodyl (Dulcolax) 10 mg RECTALLY DAILY PRN PRN Reason: Constipation Budesonide (Pulmicort Inhalation) 0.5 mg AEROSOL RTBID [facility] Last Admin: 06/17/17 07:35 Dose: 0.5 mg Ferrous Sulfate (Feosol) 324 mg PO WB [facility] Last Admin: 06/17/17 08:31 Dose: 324 mg Gabapentin (Neurontin) 200 mg PO 0900,1500 [facility] Last Admin: 06/17/17 14:39 Dose: 200 mg Gabapentin (Neurontin) 900 mg PO HS [facility] Last Admin: 06/16/17 20:44 Dose: 900 mg Isosorbide Mononitrate (Imdur) 30 mg PO ACB [facility] Last Admin: 06/17/17 05:42 Dose: 30 mg Latanoprost (Xalatan) 1 drops EACH EYE [facility] Last Admin: 06/16/17 20:44 Dose: 1 drops Magnesium Hydroxide (Mom) 30 ml PO DAILY PRN PRN Reason: Constipation Modafinil (Provigil) 100 mg PO DAILY [facility] Last Admin: 06/17/17 09:00 Dose: 100 mg Nitroglycerin (Nitrostat) 0.4 mg SL Q5M PRN PRN Reason: Chest pain Pantoprazole Sodium (Protonix Tab) 40 mg PO ACB [facility] Last Admin: 06/17/17 05:42 Dose: 40 mg Polyethylene Glycol (Miralax) 17 gm PO DAILY PRN Potassium Chloride (K-Dur 20 Meq Tablet) 20 meq PO WB [facility] Last Admin: 06/17/17 08:31 Dose: 20 meq Pramipexole Dihydrochloride (Mirapex) 0.25 mg PO [facility] Last Admin: 06/16/17 20:44 Dose: 0.25 mg Rosuvastatin Calcium (Crestor) 40 mg PO HS [facility] Last Admin: 06/16/17 20:44 Dose: 40 mg Senna (Senna Lax) 17.2 mg PO HS PRN PRN Reason: Constipation Tamsulosin HCl (Flomax) 0.4 mg PO DAILY [facility] Last Admin: 06/17/17 08:32 Dose: 0.4 mg Tramadol/Acetaminophen (Ultracet) 1 tab PO Q8H PRN PRN Reason: Pain Venlafaxine HCl (Effexor Xr) 300 mg PO WB [facility] Last Admin: 06/17/17 08:31 Dose: 300 mg Subjective: Patient seen and chart reviewed. Nursing reports pt tends to isolate at times but has been pleasant and no behaviors. Sleeping well and has a good appetite. On face to face the pt is pleasant. He is alert and oriented x 3. He reports his mood is stable. He denies any S/I. He remains some what flat and answers with brief responses Start Time: 10:00 Stop Time: 10:15 Mental Status Exam Vitals: Last Vital Signs Temp 96.8 F 06/17/17 08:00 Pulse 83 06/17/17 08:00 Resp 16 06/17/17 11:30 BP 110/61 06/17/17 08:00 Pulse Ox 93 06/17/17 11:30 Height: 1.63 m Weight: 67.5 kg - Mental Status Exam Muscle Strength/Tone: Normal Dressing: Casual Grooming: Good Attitude: Cooperative Motor Activity: Normal Eye Contact: Good Speech: Normal Volume: Soft Rhythm: Appropriate Rhythm Orientation: Disoriented to time (06/24/17), Oriented to person, Oriented to place Mood: Neutral Rate of Thoughts: Delayed (improved from admission) Thought Organization: Organized, [place] Associations: Intact Abstract Reasoning: Poor abstract reasoning Thought Content: Normal Perception/Psychotic: Perception Normal Language: Other (some naming impairment) Fund of Knowledge: Other (decreased, SLUMS on 06/13) Memory: Poor-recent Suicidal Ideation: Denies Homicidal Ideation: Denies Insight: Impaired Judgement: Impaired Impulse Control: Good - Laboratory Result Diagrams: 06/14/17 15:53 06/14/17 15:53 Laboratory Results - last 24 hr 06/17/17 05:45 Glucometer 76 Assessment and Plan (1) Severe protein-calorie malnutrition Current visit: No Status: Acute (2) Obstructive sleep apnea Current visit: No Status: Acute (3) COPD (chronic obstructive pulmonary disease) Current visit: No Status: Acute (4) History of depression Current visit: No Status: Chronic (5) Major neurocognitive disorder Problem details: Moderate, 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 Hospital Course: On admission to [facility] [place], decreased lithium to 300mg PO q HS. 06/15/17 Psych: Decrease lithium to 75mg PO q HS, decreased Effexor XR to 300mg PO daily, decreased modafinil to 150mg PO q HS. Monitor mood, behavior and response to treatment. 06/16/17 Psych: Continue the following medication changes: Discontinue lithium, decrease modafinil to 100mg PO daily, decrease pramipexole to 0.25mg PO q HS. Monitor mood, behavior and response to treatment over the weekend. 06/17/17 Psych- Remains withdrawn- Continue current care
[2017-06-17] MEDS: BENZONATATE 100 MG CAPSULE PO PRN (15:43)
[2017-06-17] MEDS: ROSUVASTATIN 20 MG TABLET PO SCH (20:29)
[2017-06-17] MEDS: PRAMIPEXOLE 0.25 MG TABLET PO SCH (20:30)
[2017-06-17] MEDS: LATANOPROST 0.005% EYE DROPS 2.5ml EACH EYE SCH (20:30)
[2017-06-17] MEDS: GABAPENTIN 300 MG CAPSULE PO SCH (20:30)
[2017-06-18] MEDS: ISOSORBIDE MONONITRATE ER 30 MG TABLET PO SCH (05:56)
[2017-06-18] MEDS: PANTOPRAZOLE 40 MG TABLET PO SCH (05:57)
[2017-06-18] MEDS: ALBUTEROL/IPRATROPIUM 2.5mg-0.5mg/3ml NEB AEROSOL SCH ×4 (07:15→20:20)
[2017-06-18] MEDS: BUDESONIDE INH.SOLN 0.5mg/2ml NEB AEROSOL SCH ×2 (07:15→20:20)
[2017-06-18] MEDS: FERROUS SULFATE 324 MG TABLET PO SCH (09:37)
[2017-06-18] MEDS: ASCORBIC ACID 500 MG TABLET PO SCH (09:38)
[2017-06-18] MEDS: ASPIRIN *EC* 81 MG TABLET PO SCH (09:38)
[2017-06-18] MEDS: GABAPENTIN 100 MG CAPSULE PO SCH ×2 (09:38→14:53)
[2017-06-18] MEDS: MODAFINIL 100 MG TABLET PO SCH (09:38)
[2017-06-18] MEDS: TAMSULOSIN 0.4 MG CAPSULE PO SCH (09:38)
--- NOTE | 2017-06-18 13:19 | Neuropsych Progress Note ---
Generations Subjective Date: 06/18/17 - Sujective/Severity of Illness Medications: Acetaminophen (Tylenol) 650 mg PO Q5H PRN PRN Reason: Discomfort Albuterol/Ipratropium (Duoneb) 3 ml AEROSOL RTQID [facility] Last Admin: 06/18/17 11:15 Dose: 3 ml Ascorbic Acid (Vitamin C) 500 mg PO DAILY [facility] Last Admin: 06/18/17 09:38 Dose: 500 mg Aspirin (Ecotrin) 81 mg PO DAILY [facility] Last Admin: 06/18/17 09:38 Dose: 81 mg Benzonatate (Tessalon Perles) 100 mg PO TID PRN PRN Reason: Cough Last Admin: 06/17/17 15:43 Dose: 100 mg Bisacodyl (Dulcolax) 10 mg RECTALLY DAILY PRN PRN Reason: Constipation Budesonide (Pulmicort Inhalation) 0.5 mg AEROSOL RTBID [facility] Last Admin: 06/18/17 07:15 Dose: 0.5 mg Ferrous Sulfate (Feosol) 324 mg PO [facility] Last Admin: 06/18/17 09:37 Dose: 324 mg Gabapentin (Neurontin) 200 mg PO 0900,1500 [facility] Last Admin: 06/18/17 09:38 Dose: 200 mg Gabapentin (Neurontin) 900 mg PO [facility] Last Admin: 06/17/17 20:30 Dose: 900 mg Isosorbide Mononitrate (Imdur) 30 mg PO ACB [facility] Last Admin: 06/18/17 05:56 Dose: 30 mg Latanoprost (Xalatan) 1 drops EACH EYE [facility] Last Admin: 06/17/17 20:30 Dose: 1 drops Magnesium Hydroxide (Mom) 30 ml PO DAILY PRN PRN Reason: Constipation Modafinil (Provigil) 100 mg PO DAILY [facility] Last Admin: 06/18/17 09:38 Dose: 100 mg Nitroglycerin (Nitrostat) 0.4 mg SL Q5M PRN PRN Reason: Chest pain Pantoprazole Sodium (Protonix Tab) 40 mg PO ACB [facility] Last Admin: 06/18/17 05:57 Dose: 40 mg Polyethylene Glycol (Miralax) 17 gm PO DAILY PRN Potassium Chloride (K-Dur 20 Meq Tablet) 20 meq PO [facility] Last Admin: 06/18/17 09:37 Dose: 20 meq Pramipexole Dihydrochloride (Mirapex) 0.25 mg PO HS [facility] Last Admin: 06/17/17 20:30 Dose: 0.25 mg Rosuvastatin Calcium (Crestor) 40 mg PO HS [facility] Last Admin: 06/17/17 20:29 Dose: 40 mg Senna (Senna Lax) 17.2 mg PO HS PRN PRN Reason: Constipation Tamsulosin HCl (Flomax) 0.4 mg PO DAILY [facility] Last Admin: 06/18/17 09:38 Dose: 0.4 mg Tramadol/Acetaminophen (Ultracet) 1 tab PO Q8H PRN PRN Reason: Pain Venlafaxine HCl (Effexor Xr) 300 mg PO WB [facility] Last Admin: 06/18/17 09:37 Dose: 300 mg Subjective: Patient seen and chart reviewed. Nursing reports pt tends to isolate at times but has been pleasant and no behaviors. Sleeping well and has a good appetite. On face to face the pt states he is doing well. He reports his mood is improved and he denies any S/I. Tolerating meds Start Time: 10:30 Stop Time: 10:45 Mental Status Exam Vitals: Last Vital Signs Temp 97.8 F 06/18/17 09:51 Pulse 88 06/18/17 09:51 Resp 16 06/18/17 11:15 BP 88/49 06/18/17 09:51 Pulse Ox 97 06/18/17 11:15 Height: 1.63 m Weight: 67.5 kg - Mental Status Exam Muscle Strength/Tone: Normal Dressing: Casual Grooming: Good Attitude: Cooperative Motor Activity: Normal Eye Contact: Good Speech: Normal Volume: Soft Rhythm: Appropriate Rhythm Orientation: Disoriented to time (06/24/17), Oriented to person, Oriented to place Mood: Neutral Rate of Thoughts: Delayed (improved from admission) Thought Organization: Organized, [place] Associations: Intact Abstract Reasoning: Poor abstract reasoning Thought Content: Normal Perception/Psychotic: Perception Normal Language: Other (some naming impairment) Fund of Knowledge: Other (decreased, SLUMS 30 on 06/13) Memory: Poor-recent Suicidal Ideation: Denies Homicidal Ideation: Denies Insight: Impaired Judgement: Impaired Impulse Control: Good - Laboratory Result Diagrams: 06/14/17 15:53 06/14/17 15:53 Laboratory Results - last 24 hr 06/18/17 06:01 Glucometer 85 Assessment and Plan (1) Severe protein-calorie malnutrition Current visit: No Status: Acute (2) Obstructive sleep apnea Current visit: No Status: Acute (3) COPD (chronic obstructive pulmonary disease) Current visit: No Status: Acute (4) History of depression Current visit: No Status: Chronic (5) Major neurocognitive disorder Problem details: Moderate, 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 Hospital Course: On admission to [facility] [place], decreased lithium to 300mg PO q HS. 06/15/17 Psych: Decrease lithium to 75mg PO q HS, decreased Effexor XR to 300mg PO daily, decreased modafinil to 150mg PO q HS. Monitor mood, behavior and response to treatment. 06/16/17 Psych: Continue the following medication changes: Discontinue lithium, decrease modafinil to 100mg PO daily, decrease pramipexole to 0.25mg PO q HS. Monitor mood, behavior and response to treatment over the weekend. 06/17/17 Psych- Remains withdrawn- Continue current care 06/18/17 Psych- Tends to isolate but no behaviors. Continue current care
[2017-06-18] MEDS: ROSUVASTATIN 20 MG TABLET PO SCH (20:41)
[2017-06-18] MEDS: GABAPENTIN 300 MG CAPSULE PO SCH (20:42)
[2017-06-18] MEDS: PRAMIPEXOLE 0.25 MG TABLET PO SCH (20:42)
[2017-06-18] MEDS: LATANOPROST 0.005% EYE DROPS 2.5ml EACH EYE SCH (20:43)
[2017-06-18] MEDS: BENZONATATE 100 MG CAPSULE PO PRN (20:54)
[2017-06-19] MEDS: ISOSORBIDE MONONITRATE ER 30 MG TABLET PO SCH (06:18)
[2017-06-19] MEDS: PANTOPRAZOLE 40 MG TABLET PO SCH (06:18)
[2017-06-19] MEDS: BUDESONIDE INH.SOLN 0.5mg/2ml NEB AEROSOL SCH ×2 (06:57→20:35)
[2017-06-19] MEDS: ALBUTEROL/IPRATROPIUM 2.5mg-0.5mg/3ml NEB AEROSOL SCH ×2 (06:57→20:35)
[2017-06-19] MEDS: ASCORBIC ACID 500 MG TABLET PO SCH (08:57)
[2017-06-19] MEDS: GABAPENTIN 100 MG CAPSULE PO SCH ×2 (08:57→15:39)
[2017-06-19] MEDS: TAMSULOSIN 0.4 MG CAPSULE PO SCH (08:57)
[2017-06-19] MEDS: MODAFINIL 100 MG TABLET PO SCH (08:57)
[2017-06-19] MEDS: ASPIRIN *EC* 81 MG TABLET PO SCH (08:57)
[2017-06-19] MEDS: FERROUS SULFATE 324 MG TABLET PO SCH (08:57)
--- NOTE | 2017-06-19 14:58 | Neuropsych Progress Note ---
Generations Subjective Date: 06/19/17 - Sujective/Severity of Illness Medications: Acetaminophen (Tylenol) 650 mg PO Q5H PRN PRN Reason: Discomfort Albuterol/Ipratropium (Duoneb) 3 ml AEROSOL RTBID [facility] Ascorbic Acid (Vitamin C) 500 mg PO DAILY [facility] Last Admin: 06/19/17 08:57 Dose: 500 mg Aspirin (Ecotrin) 81 mg PO DAILY [facility] Last Admin: 06/19/17 08:57 Dose: 81 mg Benzonatate (Tessalon Perles) 100 mg PO TID PRN PRN Reason: Cough Last Admin: 06/18/17 20:54 Dose: 100 mg Bisacodyl (Dulcolax) 10 mg RECTALLY DAILY PRN PRN Reason: Constipation Budesonide (Pulmicort Inhalation) 0.5 mg AEROSOL RTBID [facility] Last Admin: 06/19/17 06:57 Dose: 0.5 mg Ferrous Sulfate (Feosol) 324 mg PO WB [facility] Last Admin: 06/19/17 08:57 Dose: 324 mg Gabapentin (Neurontin) 200 mg PO 0900,1500 [facility] Last Admin: 06/19/17 08:57 Dose: 200 mg Gabapentin (Neurontin) 900 mg PO HS [facility] Last Admin: 06/18/17 20:42 Dose: 900 mg Isosorbide Mononitrate (Imdur) 30 mg PO ACB [facility] Last Admin: 06/19/17 06:18 Dose: 30 mg Latanoprost (Xalatan) 1 drops EACH EYE [facility] Last Admin: 06/18/17 20:43 Dose: 1 drops Magnesium Hydroxide (Mom) 30 ml PO DAILY PRN PRN Reason: Constipation Modafinil (Provigil) 100 mg PO DAILY [facility] Last Admin: 06/19/17 08:57 Dose: 100 mg Nitroglycerin (Nitrostat) 0.4 mg SL Q5M PRN PRN Reason: Chest pain Pantoprazole Sodium (Protonix Tab) 40 mg PO ACB [facility] Last Admin: 06/19/17 06:18 Dose: 40 mg Polyethylene Glycol (Miralax) 17 gm PO DAILY PRN Potassium Chloride (K-Dur 20 Meq Tablet) 20 meq PO WB [facility] Last Admin: 06/19/17 08:57 Dose: 20 meq Pramipexole Dihydrochloride (Mirapex) 0.25 mg PO [facility] Last Admin: 06/18/17 20:42 Dose: 0.25 mg Rosuvastatin Calcium (Crestor) 40 mg PO HS [facility] Last Admin: 06/18/17 20:41 Dose: 40 mg Senna (Senna Lax) 17.2 mg PO HS PRN PRN Reason: Constipation Tamsulosin HCl (Flomax) 0.4 mg PO DAILY [facility] Last Admin: 06/19/17 08:57 Dose: 0.4 mg Tramadol/Acetaminophen (Ultracet) 1 tab PO Q8H PRN PRN Reason: Pain Venlafaxine HCl (Effexor Xr) 300 mg PO WB [facility] Last Admin: 06/19/17 08:57 Dose: 300 mg Subjective: Patient seen and chart reviewed. Case discussed with treatment team. On interview, patient is pleasant and easily engaged. He reports that his mood is "good" overall though he is bored in the hospital. He tends to isolate to his room and he states it is because there is not anything to do here. He refused my suggestions/offers to find something to help entertain him. He says that he really enjoys cleaning and doing yardwork at home. Patient does come out to the dayroom for meals and doesn't appear uncomfortable. Patient denies any SI, HI or AVH. Patient denies any adverse side effects related to psychotropic medications. He feels the medication changes have gone well and he is thinking more clearly. Nursing staff report patient has been pleasant and cooperative though he does frequently isolate. No significant behavioral problems on the unit. Patient has been adherent with medications. Patient slept 6.75 hours overnight. VSS. Patient is eating well. Psychotropic PRNs required in the past 24 hours: none. I also spoke with patient's who feels medication changes have gone well. Discussed possibility of home health for med management after discharge. All questions answered to her satisfaction at this time. Start Time: 09:00 Stop Time: 09:20 Mental Status Exam Vitals: Last Vital Signs Temp 97.1 F 06/19/17 09:00 Pulse 76 06/19/17 09:00 Resp 16 06/19/17 09:00 BP 89/45 06/19/17 09:00 Pulse Ox 98 06/19/17 09:00 Height: 1.63 m Weight: 67.5 kg - Mental Status Exam Muscle Strength/Tone: Normal Dressing: Casual Grooming: Good Attitude: Cooperative Motor Activity: Normal Eye Contact: Good Speech: Normal Volume: Soft Rhythm: Appropriate Rhythm Orientation: Oriented to person, Oriented to place, Oriented to time Mood: Neutral Affect: Relaxed Rate of Thoughts: Appropriate Rate Thought Organization: Organized, [place] Associations: Intact Abstract Reasoning: Poor abstract reasoning Thought Content: Normal Perception/Psychotic: Perception Normal Language: Other (some naming impairment) Fund of Knowledge: Other (decreased, SLUMS on 06/13) Memory: Poor-recent Suicidal Ideation: Denies Homicidal Ideation: Denies Insight: Impaired Judgement: Impaired Impulse Control: Good - Laboratory Result Diagrams: 06/14/17 15:53 06/14/17 15:53 Assessment and Plan (1) Major neurocognitive disorder Problem details: Moderate, 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 Will repeat SLUMS and compare to admission (). Hospital Course Summary Disclaimer: The visit summary below is not to be considered part of the above Progress Note. Hospital Course: On admission to [facility] [place], decreased lithium to 300mg PO q HS. 06/15/17 Psych: Decrease lithium to 75mg PO q HS, decreased Effexor XR to 300mg PO daily, decreased modafinil to 150mg PO q HS. Monitor mood, behavior and response to treatment. 06/16/17 Psych: Continue the following medication changes: Discontinue lithium, decrease modafinil to 100mg PO daily, decrease pramipexole to 0.25mg PO q HS. Monitor mood, behavior and response to treatment over the weekend. 06/17/17 Psych- Remains withdrawn- Continue current care 06/18/17 Psych- Tends to isolate but no behaviors. Continue current care. 06/19/17 Psych: Will continue medication changes with the following: discontinue Mirapex, decrease Effexor XR to 225mg PO daily, decrease Provigil to 50mg PO daily. Will repeat SLUMS and compare to admission ().
[2017-06-19] MEDS: LATANOPROST 0.005% EYE DROPS 2.5ml EACH EYE SCH (21:07)
[2017-06-19] MEDS: GABAPENTIN 300 MG CAPSULE PO SCH (21:07)
[2017-06-19] MEDS: ROSUVASTATIN 20 MG TABLET PO SCH (21:08)
[2017-06-19] MEDS: BENZONATATE 100 MG CAPSULE PO PRN (21:14)
[2017-06-20] MEDS: PANTOPRAZOLE 40 MG TABLET PO SCH (06:20)
[2017-06-20] MEDS: ISOSORBIDE MONONITRATE ER 30 MG TABLET PO SCH (06:20)
[2017-06-20] MEDS: FERROUS SULFATE 324 MG TABLET PO SCH (08:18)
[2017-06-20] MEDS: Venlaflaxine XR 75 MG CAPSULE (24hr) PO SCH (08:18)
[2017-06-20] MEDS: ASCORBIC ACID 500 MG TABLET PO SCH (08:19)
[2017-06-20] MEDS: GABAPENTIN 100 MG CAPSULE PO SCH ×2 (08:19→17:27)
[2017-06-20] MEDS: ASPIRIN *EC* 81 MG TABLET PO SCH (08:19)
[2017-06-20] MEDS: TAMSULOSIN 0.4 MG CAPSULE PO SCH (08:20)
[2017-06-20] MEDS ORDERED: MODAFINIL 100 MG TABLET PO SCH (09:00)
[2017-06-20] MEDS: BUDESONIDE INH.SOLN 0.5mg/2ml NEB AEROSOL SCH ×2 (09:13→19:55)
[2017-06-20] MEDS: ALBUTEROL/IPRATROPIUM 2.5mg-0.5mg/3ml NEB AEROSOL SCH ×2 (09:13→19:55)
--- NOTE | 2017-06-20 10:54 | Progress Note ---
- Date 06/20/17 Subjective: Chris is getting up for the day. He states he had a good night and his feeling pretty good. He is walking well and not using his walker. He denies feeling weak , dizzy or lightheaded even though his blood pressure has been running low. He denies any syncope. No chest pain or shortness of breath. In fact, he denies any complaints whatsoever. He has been eating well and denies dysphagia or nausea. Objective Vital signs: Temperature 97.2 F 06/20/17 07:47 Pulse Rate 59 L 06/20/17 07:48 Respiratory Rate 18 06/20/17 09:15 Blood Pressure 78/44 06/20/17 07:48 Pulse Oximetry 99 06/20/17 09:15 Height/Weight/BMI: Height 1.63 m Weight 67.5 kg Body Mass Index 25.5 - Constitutional Present: no acute distress, well nourished, well developed - Routine HEENT Exam Head: Present: normocephalic Eye: Present: PERRL. Absent: conjunctival icterus, scleral injection ENT: Present: mucous membranes moist, oropharynx clear - Routine Respiratory Exam Present: CTA bilaterally - Routine Cardiovascular Exam Present: RRR, S1, S2 - Routine Abdominal Exam Present: soft, normoactive bowel sounds, non distended, non tender - Routine Extremities Exam Present: no edema, pulses intact - Routine Skin Exam Present: intact, dry, warm - Routine Neurological Exam Present: alert, moving all extremities, vision grossly intact, hearing grossly intact, normal speech - Routine Psychiatric Exam Present: normal affect, normal thought process, cooperative Results - Labs CBC & Chem 7: 06/14/17 15:53 06/20/17 07:59 Assessment and Plan Assessment and Plan: ASSESSMENT Altered mental status, acute. Aspiration Pneumonia (POA) -resolved UTI with Enterococcus faecalis (POA) -resolved Severe hypokalemia (POA) -resolved Leukocytosis (POA) - resolved Rapid weight loss with anorexia -improving Severe protein calorie malnutrition -improving [place] toxicity (POA) - resolved Dementia (vascular) with behavioral disturbance and increased agitation/ restlessness CAD. Hypertension. Hyperlipidemia. Diabetes mellitus, type II. Diabetic neuropathy. COPD. Sleep apnea with home CPAP. GERD. Dysphagia. Chronic pain. Chronic anemia. Severe depression with prior ECT treatments - 2002. History of alcohol abuse. History of esophageal cancer and Philippe's esophagus. Questionable history of CVA - 2003. Prior suicide attempt - 2002. PLAN BMP repeated this morning, potassium of 3.7. Will continue KDur. Patient has intermittently low blood pressures, but is asymptomatic. He is on the lowest dose of Imdur, and does not take any other antihypertensives. Encourage fluid intake. Will discuss hypotension with Dr. Juárez. Medications being adjusted per attending. Resuscitation Status: Full Code - Physician Narrative Narrative: Date: 06/20/17 Time: 1051 Hospital Course Summary Disclaimer: The visit summary below is not to be considered part of the above Progress Note. Hospital Course: On admission to [facility] [place], decreased lithium to 300mg PO q HS. 06/15/17 Psych: Decrease lithium to 75mg PO q HS, decreased Effexor XR to 300mg PO daily, decreased modafinil to 150mg PO q HS. Monitor mood, behavior and response to treatment. 06/16/17 Psych: Continue the following medication changes: Discontinue lithium, decrease modafinil to 100mg PO daily, decrease pramipexole to 0.25mg PO q HS. Monitor mood, behavior and response to treatment over the weekend. 06/17/17 Psych- Remains withdrawn- Continue current care 06/18/17 Psych- Tends to isolate but no behaviors. Continue current care. 06/19/17 Psych: Will continue medication changes with the following: discontinue Mirapex, decrease Effexor XR to 225mg PO daily, decrease Provigil to 50mg PO daily. Will repeat SLUMS and compare to admission (). 06/20/17: Hosp BMP repeated this morning, potassium of 3.7. Will continue KDur. Patient has intermittently low blood pressures, but is asymptomatic. He is on the lowest dose of Imdur, and does not take any other antihypertensives. Encourage fluid intake.
--- NOTE | 2017-06-20 11:58 | Neuropsych Progress Note ---
Generations Subjective Date: 06/20/17 - Sujective/Severity of Illness Medications: Acetaminophen (Tylenol) 650 mg PO Q5H PRN PRN Reason: Discomfort Albuterol/Ipratropium (Duoneb) 3 ml AEROSOL RTBID [facility] Last Admin: 06/20/17 09:13 Dose: 3 ml Ascorbic Acid (Vitamin C) 500 mg PO DAILY [facility] Last Admin: 06/20/17 08:19 Dose: 500 mg Aspirin (Ecotrin) 81 mg PO DAILY [facility] Last Admin: 06/20/17 08:19 Dose: 81 mg Benzonatate (Tessalon Perles) 100 mg PO TID PRN PRN Reason: Cough Last Admin: 06/19/17 21:14 Dose: 100 mg Bisacodyl (Dulcolax) 10 mg RECTALLY DAILY PRN PRN Reason: Constipation Budesonide (Pulmicort Inhalation) 0.5 mg AEROSOL RTBID [facility] Last Admin: 06/20/17 09:13 Dose: 0.5 mg Ferrous Sulfate (Feosol) [address] [facility] Last Admin: 06/20/17 08:18 Dose: 324 mg Gabapentin (Neurontin) 200 mg PO 0900,1500 [facility] Last Admin: 06/20/17 08:19 Dose: 200 mg Gabapentin (Neurontin) 900 mg PO [facility] Last Admin: 06/19/17 21:07 Dose: 900 mg Isosorbide Mononitrate (Imdur) 30 mg PO ACB [facility] Last Admin: 06/20/17 06:20 Dose: 30 mg Latanoprost (Xalatan) 1 drops EACH EYE [facility] Last Admin: 06/19/17 21:07 Dose: 1 drops Magnesium Hydroxide (Mom) 30 ml PO DAILY PRN PRN Reason: Constipation Modafinil (Provigil) 50 mg PO DAILY [facility] Last Admin: 06/20/17 08:19 Dose: 50 mg Nitroglycerin (Nitrostat) 0.4 mg SL Q5M PRN PRN Reason: Chest pain Pantoprazole Sodium (Protonix Tab) 40 mg PO ACB [facility] Last Admin: 06/20/17 06:20 Dose: 40 mg Polyethylene Glycol (Miralax) 17 gm PO DAILY PRN Potassium Chloride (K-Dur 20 Meq Tablet) [address] [facility] Last Admin: 06/20/17 08:18 Dose: 20 meq Rosuvastatin Calcium (Crestor) 40 mg PO HS [facility] Last Admin: 06/19/17 21:08 Dose: 40 mg Senna (Senna Lax) 17.2 mg PO HS PRN PRN Reason: Constipation Tamsulosin HCl (Flomax) 0.4 mg PO DAILY [facility] Last Admin: 06/20/17 08:20 Dose: 0.4 mg Tramadol/Acetaminophen (Ultracet) 1 tab PO Q8H PRN PRN Reason: Pain Venlafaxine HCl (Effexor Xr) 225 mg PO WB [facility] Last Admin: 06/20/17 08:18 Dose: 225 mg Subjective: Patient seen and chart reviewed. Case discussed with treatment team. On interview, patient is pleasant and easily engaged. He reports that his mood is "good" overall though he is bored in the hospital. He tends to isolate to his room and he states it is because there is not anything to do here. Patient does come out to the dayroom for meals and doesn't appear uncomfortable. He has been participating well in group. Patient denies any SI, HI or AVH. Patient denies any adverse side effects related to psychotropic medications. He feels the medication changes have gone well and he is thinking more clearly. SLUMS yesterday was , increased from prior to admission. Nursing staff report patient has been pleasant and cooperative though he does frequently isolate. They feel affect is brighter than upon admission. No significant behavioral problems on the unit. Patient has been adherent with medications. Patient slept 6 hours overnight. VSS. Patient is eating well. Psychotropic PRNs required in the past 24 hours: none. Start Time: 08:40 Stop Time: 09:00 Mental Status Exam Vitals: Last Vital Signs Temp 97.2 F 06/20/17 07:47 Pulse 59 L 06/20/17 07:48 Resp 18 06/20/17 09:15 BP 78/44 06/20/17 07:48 Pulse Ox 99 06/20/17 09:15 Height: 1.63 m Weight: 67.5 kg - Mental Status Exam Muscle Strength/Tone: Normal Dressing: Casual Grooming: Good Attitude: Cooperative Motor Activity: Normal Eye Contact: Good Speech: Normal Volume: Soft Rhythm: Appropriate Rhythm Orientation: Oriented to person, Oriented to place, Oriented to time Mood: Euthymic Affect: Relaxed Rate of Thoughts: Appropriate Rate Thought Organization: Organized, [place] Associations: Intact Abstract Reasoning: Poor abstract reasoning Thought Content: Normal Perception/Psychotic: Perception Normal Language: Naming Intact Fund of Knowledge: Other (below average, SLUMS / on 06/19) Memory: Poor-recent Suicidal Ideation: Denies Homicidal Ideation: Denies Insight: Limited Judgement: Limited Impulse Control: Good - Laboratory Result Diagrams: 06/14/17 15:53 06/20/17 07:59 Laboratory Results - last 24 hr 06/19/17 06/20/17 06/20/17 15:58 06:25 07:59 Turbidity < 20 Sodium 144 Potassium 3.7 Chloride 108 H Carbon Dioxide 29 Anion Gap 7 BUN 8.0 L Creatinine 0.7 L GFR Calculation 114 BUN/Creatinine Ratio 11 Glucose 98 Glucometer 147 75 Calculated Osmolality 275 Calcium 8.8 Icterus Index < 2 Specimen Hemolysis < 15 Assessment and Plan (1) Major neurocognitive disorder Problem details: Moderate, mixed etiology 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 Monitor mood, behavior and response to treatment. Hospital Course Summary Disclaimer: The visit summary below is not to be considered part of the above Progress Note. Hospital Course: [place] [facility] lithium to 300mg PO q HS. 06/15/17 Psych: Decrease lithium to 75mg PO q HS, decreased Effexor XR to 300mg PO daily, decreased modafinil to 150mg PO q HS. Monitor mood, behavior and response to treatment. 06/16/17 Psych: Continue the following medication changes: Discontinue lithium, decrease modafinil to 100mg PO daily, decrease pramipexole to 0.25mg PO q HS. Monitor mood, behavior and response to treatment over the weekend. 06/17/17 Psych- Remains withdrawn- Continue current care 06/18/17 Psych- Tends to isolate but no behaviors. Continue current care. 06/19/17 Psych: Will continue medication changes with the following: discontinue Mirapex, decrease Effexor XR to 225mg PO daily, decrease Provigil to 50mg PO daily. Will repeat SLUMS and compare to admission (). 06/20/17: Hosp BMP repeated this morning, potassium of 3.7. Will continue KDur. Patient has intermittently low blood pressures, but is asymptomatic. He is on the lowest dose of Imdur, and does not take any other antihypertensives. Encourage fluid intake. 06/20/17 Psych: Discontinue modafinil starting 06/21. Monitor mood, behavior and response to treatment.
[2017-06-20] MEDS: LATANOPROST 0.005% EYE DROPS 2.5ml EACH EYE SCH (20:40)
[2017-06-20] MEDS: GABAPENTIN 300 MG CAPSULE PO SCH (20:40)
[2017-06-20] MEDS: ROSUVASTATIN 20 MG TABLET PO SCH (20:42)
[2017-06-20] MEDS: BENZONATATE 100 MG CAPSULE PO PRN (20:42)
[2017-06-21] MEDS: ISOSORBIDE MONONITRATE ER 30 MG TABLET PO SCH (06:41)
[2017-06-21] MEDS: BUDESONIDE INH.SOLN 0.5mg/2ml NEB AEROSOL SCH ×2 (07:12→20:15)
[2017-06-21] MEDS: ALBUTEROL/IPRATROPIUM 2.5mg-0.5mg/3ml NEB AEROSOL SCH ×2 (07:12→20:15)
[2017-06-21] MEDS: FERROUS SULFATE 324 MG TABLET PO SCH (08:34)
[2017-06-21] MEDS: TAMSULOSIN 0.4 MG CAPSULE PO SCH (08:34)
[2017-06-21] MEDS: ASCORBIC ACID 500 MG TABLET PO SCH (08:34)
[2017-06-21] MEDS: PANTOPRAZOLE 40 MG TABLET PO SCH (08:34)
[2017-06-21] MEDS: ASPIRIN *EC* 81 MG TABLET PO SCH (08:35)
[2017-06-21] MEDS: GABAPENTIN 100 MG CAPSULE PO SCH ×2 (08:35→14:25)
[2017-06-21] MEDS: Venlaflaxine XR 75 MG CAPSULE (24hr) PO SCH (08:35)
--- NOTE | 2017-06-21 10:24 | Neuropsych Progress Note ---
Generations Subjective Date: 06/21/17 - Sujective/Severity of Illness Medications: Acetaminophen (Tylenol) 650 mg PO Q5H PRN PRN Reason: Discomfort Albuterol/Ipratropium (Duoneb) 3 ml AEROSOL RTBID [facility] Last Admin: 06/21/17 07:12 Dose: 3 ml Ascorbic Acid (Vitamin C) 500 mg PO DAILY [facility] Last Admin: 06/21/17 08:34 Dose: 500 mg Aspirin (Ecotrin) 81 mg PO DAILY [facility] Last Admin: 06/21/17 08:35 Dose: 81 mg Benzonatate (Tessalon Perles) 100 mg PO TID PRN PRN Reason: Cough Last Admin: 06/20/17 20:42 Dose: 100 mg Bisacodyl (Dulcolax) 10 mg RECTALLY DAILY PRN PRN Reason: Constipation Budesonide (Pulmicort Inhalation) 0.5 mg AEROSOL RTBID [facility] Last Admin: 06/21/17 07:12 Dose: 0.5 mg Ferrous Sulfate (Feosol) [address] [facility] Last Admin: 06/21/17 08:34 Dose: 324 mg Gabapentin (Neurontin) 200 mg PO 0900,1500 [facility] Last Admin: 06/21/17 08:35 Dose: 200 mg Gabapentin (Neurontin) 900 mg PO [facility] Last Admin: 06/20/17 20:40 Dose: 900 mg Isosorbide Mononitrate (Imdur) 30 mg PO ACB [facility] Last Admin: 06/21/17 06:41 Dose: 30 mg Latanoprost (Xalatan) 1 drops EACH EYE [facility] Last Admin: 06/20/17 20:40 Dose: 1 drops Magnesium Hydroxide (Mom) 30 ml PO DAILY PRN PRN Reason: Constipation Last Admin: 06/20/17 18:03 Dose: 30 ml Nitroglycerin (Nitrostat) 0.4 mg SL Q5M PRN PRN Reason: Chest pain Pantoprazole Sodium (Protonix Tab) 40 mg PO ACB [facility] Last Admin: 06/21/17 08:34 Dose: 40 mg Polyethylene Glycol (Miralax) 17 gm PO DAILY PRN Potassium Chloride (K-Dur 20 Meq Tablet) [address] [facility] Last Admin: 06/21/17 08:34 Dose: 20 meq Rosuvastatin Calcium (Crestor) 40 mg PO [facility] Last Admin: 06/20/17 20:42 Dose: 40 mg Senna (Senna Lax) 17.2 mg PO HS PRN PRN Reason: Constipation Tamsulosin HCl (Flomax) 0.4 mg PO DAILY [facility] Last Admin: 06/21/17 08:34 Dose: 0.4 mg Tramadol/Acetaminophen (Ultracet) 1 tab PO Q8H PRN PRN Reason: Pain Venlafaxine HCl (Effexor Xr) 225 mg PO WB [facility] Last Admin: 06/21/17 08:35 Dose: 225 mg Subjective: Patient seen and chart reviewed. Case discussed with treatment team. On interview, patient is pleasant and easily engaged. He reports that his mood is "good" overall though he is bored in the hospital. He tends to isolate to his room and he states it is because there is not anything to do here. Patient does come out to the dayroom for meals and doesn't appear uncomfortable. He has been participating well in group. Patient denies any SI, HI or AVH. Patient denies any adverse side effects related to psychotropic medications. He feels the medication changes have gone well and he is thinking more clearly. Last SLUMS was , increased from prior to admission. Nursing staff report patient has been pleasant and cooperative though he does frequently isolate. They feel affect is brighter than upon admission. No significant behavioral problems on the unit. Patient has been adherent with medications. Patient slept 7 hours overnight. VSS. Patient is eating well. Psychotropic PRNs required in the past 24 hours: none. Start Time: 09:00 Stop Time: 09:20 Mental Status Exam Vitals: Last Vital Signs Temp 97.2 F 06/21/17 08:00 Pulse 88 06/21/17 08:00 Resp 16 06/21/17 08:00 BP 81/52 06/21/17 08:00 Pulse Ox 97 06/21/17 08:00 Height: 1.63 m Weight: 67.5 kg - Mental Status Exam Muscle Strength/Tone: Normal Dressing: Casual Grooming: Good Attitude: Cooperative Motor Activity: Normal Eye Contact: Good Speech: Normal Volume: Soft Rhythm: Appropriate Rhythm Orientation: Oriented to person, Oriented to place, Oriented to time Mood: Euthymic Affect: Relaxed Rate of Thoughts: Appropriate Rate Thought Organization: Organized, [place] Associations: Intact Abstract Reasoning: Poor abstract reasoning Thought Content: Normal Perception/Psychotic: Perception Normal Language: Naming Intact Fund of Knowledge: Other (below average, SLUMS on 06/19) Memory: Poor-recent Suicidal Ideation: Denies Homicidal Ideation: Denies Insight: Limited Judgement: Limited Impulse Control: Good - Laboratory Result Diagrams: 06/14/17 15:53 06/20/17 07:59 Laboratory Results - last 24 hr 06/21/17 06:42 Glucometer 72 Assessment and Plan (1) Major neurocognitive disorder Problem details: Moderate, mixed etiology 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 Plan to discharge to home with on 06/22/17; will arrange HH after discharge. Will request psychiatric f/u with MD at [facility]. Hospital Course Summary Disclaimer: The visit summary below is not to be considered part of the above Progress Note. Hospital Course: On admission to [facility] [place], decreased lithium to 300mg PO q HS. 06/15/17 Psych: Decrease lithium to 75mg PO q HS, decreased Effexor XR to 300mg PO daily, decreased modafinil to 150mg PO q HS. Monitor mood, behavior and response to treatment. 06/16/17 Psych: Continue the following medication changes: Discontinue lithium, decrease modafinil to 100mg PO daily, decrease pramipexole to 0.25mg PO q HS. Monitor mood, behavior and response to treatment over the weekend. 06/17/17 Psych- Remains withdrawn- Continue current care 06/18/17 Psych- Tends to isolate but no behaviors. Continue current care. 06/19/17 Psych: Will continue medication changes with the following: discontinue Mirapex, decrease Effexor XR to 225mg PO daily, decrease Provigil to 50mg PO daily. Will repeat SLUMS and compare to admission (). 06/20/17: Hosp BMP repeated this morning, potassium of 3.7. Will continue KDur. Patient has intermittently low blood pressures, but is asymptomatic. He is on the lowest dose of Imdur, and does not take any other antihypertensives. Encourage fluid intake. 06/20/17 Psych: Discontinue modafinil starting 06/21. Monitor mood, behavior and response to treatment. 06/21/17 Psych: Patient has tolerated medication changes well. Plan to discharge to home with on 06/22/17; will arrange HH after discharge. Will request psychiatric f/u with MD at [facility].
[2017-06-21] MEDS: BENZONATATE 100 MG CAPSULE PO PRN (20:06)
[2017-06-21] MEDS: GABAPENTIN 300 MG CAPSULE PO SCH (20:07)
[2017-06-21] MEDS: LATANOPROST 0.005% EYE DROPS 2.5ml EACH EYE SCH (20:07)
[2017-06-21] MEDS: ROSUVASTATIN 20 MG TABLET PO SCH (20:07)
[2017-06-21 20:32] VITALS: BP 99/64; PULSE 77; TEMP 97.4; O2SAT 99
[2017-06-22] MEDS: PANTOPRAZOLE 40 MG TABLET PO SCH (06:20)
[2017-06-22] MEDS: ISOSORBIDE MONONITRATE ER 30 MG TABLET PO SCH (06:20)
[2017-06-22] MEDS: ALBUTEROL/IPRATROPIUM 2.5mg-0.5mg/3ml NEB AEROSOL SCH (07:13)
[2017-06-22] MEDS: BUDESONIDE INH.SOLN 0.5mg/2ml NEB AEROSOL SCH (07:13)
[2017-06-22 08:01] VITALS: RESP 16
[2017-06-22] MEDS: FERROUS SULFATE 324 MG TABLET PO SCH (08:07)
[2017-06-22] MEDS: ASCORBIC ACID 500 MG TABLET PO SCH (08:08)
[2017-06-22] MEDS: Venlaflaxine XR 75 MG CAPSULE (24hr) PO SCH (08:08)
[2017-06-22] MEDS: ASPIRIN *EC* 81 MG TABLET PO SCH (08:08)
[2017-06-22] MEDS: TAMSULOSIN 0.4 MG CAPSULE PO SCH (08:08)
[2017-06-22] MEDS: GABAPENTIN 100 MG CAPSULE PO SCH (08:08)
== END 2017-06-22 09:35 | disposition home health service (06) | DRG 884 ==
LOC: OBSVTOIN 13:54 → GEN 13:54 → INTOOBSV 13:54
PROVIDERS: ADMIT Psychiatry & Neurology Psychiatry; ATTEND Psychiatry & Neurology Psychiatry